=== PATIENT | male | born 1945 | race Caucasian/White ===

== ENCOUNTER → 2022-12-21 08:05 | Outpatient (CLI) | payer MEDICARE, SELFPAY ==
--- NOTE | ~2022-12-21 | MR_ITS ---
MRI of the lumbar spine Clinical History: Radiculopathy Technique: Axial T2-weighted images, and sagittal T1-weighted, T2-weighted, and T2 fat-sat images wer e acquired. COMPARISON: 04/09/2019 Findings: No fracture of the lumbar spine seen. Osseous alignment is stable from prior exam. Stable m inimal grade 1 retrolisthesis of L2 over L3. There are reactive marrow signal changes about the L2-L3 disc spaces due to underlying degenerative disc disease. At L1-L2, there is mild diffuse disc bulge and mild facet joint hypertrophy. No spinal canal stenosis or neural foraminal narrowing. At L2-L3, there is advanced degenerative disc narrowing, with facet joint arthropathy and minimal dis c bulge. There is right lateral recess stenosis. Neural foramina are preserved. At L3-L4, there is advanced degenerative disc narrowing. There is facet arthropathy. There is minimal disc bulge. No angie spinal canal stenosis. There is mild to moderate right neural foraminal narrowi ng. Left neural foramen preserved. At L4-L5, there is mild disc bulge with facet arthropathy. No spinal canal stenosis. There is probabl e minimal right neural foraminal narrowing and mild left neural foraminal narrowing. At L5-S1, there is mild disc bulge and facet arthropathy. No spinal canal stenosis. There is moderate to severe left neural foraminal narrowing and moderate right neural foraminal narrowing. Paravertebral soft tissues are unremarkable. Impression: Mild to moderate degenerative spondylosis, as detailed above, similar to prior exam. Reviewed, dictated and finalized at [facility]. ING AND INSURANCE COORDINATOR Impression: Mild to moderate degenerative spondylosis, as detailed above, similar to prior exam.
== END ==
PROVIDERS: PCP Internal Medicine; Visit Provider Nurse Practitioner
DX: M47.26 Other spondylosis with radiculopathy, lumbar region (principal)
CPT/HCPCS: 72148

== ENCOUNTER 2024-07-27 15:36 | Emergency (ER) | payer MEDICARE, SELFPAY ==
--- NOTE | ~2024-07-27 | CT_ITS ---
CT diagnostic chest wo con Ordering provider: Khushbu Gutierrez MD History: 79 years Male with . POSSIBLE RIB FRACTURES . Comparison: None. Technique: CT chest without IV contrast. Radiation reduction technique utilized. The dose-length product was 504.83 mGy-cm. FINDINGS: VISUALIZED THORACIC INLET: Normal. MEDIASTINUM: Aorta/coronary arteries: Mild atheromatous disease. Heart/other: The heart is not enlarged. Lymph nodes: No mediastinal or hilar adenopathy. LUNGS: No pulmonary nodules or masses. No infiltrates or effusions. No pneumothorax. Dependent atelec tatic changes. Minimal thickness in the left lower lobe area pleura. VISUALIZED UPPER ABDOMEN: Cholelithiasis. Minimal fullness in the left renal pelvis. Otherwise, the v isualized upper abdomen is normal. MUSCULOSKELETAL: Soft tissues: The superficial soft tissues are normal. Bones: Age appropriate degenerative changes of the spine. Fracture of the left sixth and eighth ribs is highly suggestive. IMPRESSION: 1. No acute cardiopulmonary pathology 2. Highly suggestive fracture in the left sixth and eighth ribs. Reviewed, dictated and finalized at location A.
[2024-07-27 15:56] VITALS: BP 133/65; PULSE 70; RESP 16; TEMP 36.6; O2SAT 96
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
[2024-07-27] MEDS: HYDROcodone/acetaminophen (*CRX) 5-325 MG TABLET 1 TAB PO (16:53)
[2024-07-27 18:24] VITALS: BP 133/75; PULSE 73; RESP 18; O2SAT 95
== END 2024-07-27 19:01 | disposition home or self-care (01) ==
PROVIDERS: Emergency Provider Emergency Medicine; PCP Internal Medicine
DX: S22.42XA Multiple fractures of ribs, left side, initial encounter for closed fracture (principal); I10 Essential (primary) hypertension; E78.5 Hyperlipidemia, unspecified; Z85.038 Personal history of other malignant neoplasm of large intestine; Z87.891 Personal history of nicotine dependence; Z79.899 Other long term (current) drug therapy; V18.0XXA Pedal cycle driver injured in noncollision transport accident in nontraffic accident, initial encounter; Y93.55 Activity, bike riding
CPT/HCPCS: 71250; 99284; A9270

== ENCOUNTER 2024-11-28 10:21 | Outpatient (CLI) | payer MEDICARE, SELFPAY ==
--- OUTSIDE RECORDS SUMMARY | 2024-11-28 10:35 | XMS_ITS | Clinical Summary ---
Author Organization [facility] Address [address] [place] [address] Care Team Providers Care Merchant Banker Name Role Phone Unavailable Primary Care Provider Unavailabl e Source Comments [facility],non-owned Affiliates and Associated Physician Practices is amultiple site organization consisting of ambulatory clinics and hospital sitesin [place], [place], [place] and [place]. This disclosure is being madepursuant to the Care Everywhere program and may not contain all information available regarding this patient. Last updated 18.[facility] Allergies No known active allergies Medications Be aware that medications may not be up to date on this document. Always verify current medications with the patient. No known medications Immunizations Name Administration Dates Next Due INFLUENZA VACCINE, HIGH-DOSE , QUADR. (FLUZONE HIGH-DOSE QUADRIVALENT; 65Y+), 0.7 ML (HD-IIV4) 07/30/2020,08/18/2018 Social History Tobacco Use Types Packs/Day Years Used Date Smoking Tobacco: Never Assessed Sex and Gender Information Value Date Recorded Sex Assigned at Not on file Gender Identity Not on file Sexual Orientation Not on file Plan of Treatment Health Maintenance Due Date Last Done Comments MEDICARE AWV ? 12 MONTHS 1945 DTAP/TDAP/TD VACCINES (1 - Tdap) 1964 PNEUMOCOCCAL VACCINE 50+ (1 of 1 - PCV) 1995 ZOSTER VACCINE (1 of 2) 1995 Respiratory Syncytial Virus (RSV) Vaccine Pt: or over 60 yrs (1 - 1-dose 75+ series) 2020 COVID-19 VACCINE (1 - 2023-2 5 season) 2024 INFLUENZA VACCINE (#1) 2024 0, 08/18/2018 DEPRESSION SCREENING 10/29/2024 HEPATITIS B VACCINE Aged Out No longe r eligible based on patient's age to complete this topic HIB VACCINE Aged Out No longer eligi ble based on patient's age to complete this topic HPV VACCINE Aged Out No longer eligi ble based on patient's age to complete this topic MENINGOCOCCAL (Group B) VACCINE Aged Out No longer eligible b ased on patient's age to complete this topic MENINGOCOCCAL VACCINE Aged Out No amanda spike eligible based on patient's age to complete this topic Jono Fischer Personal/Family [place] 1945 [place] [address]
--- OUTSIDE RECORDS SUMMARY | 2024-11-28 10:35 | XMS_ITS | Continuity of Care Document ---
Author Organization [facility] Address [address] [place] [address] Phone Care Team Providers Care High Scaler Name Role Phone Russ OD, Omega Unavailable Unavailable Procedures Procedure Date Eye Exam & Treatment Refraction Eye Exam & Treatment Refraction Advance Directives Directive Yes / No Effective Date File Name No Information Encounters Encounter Description Practice Location Reason(s) For Visit Diagnoses Date Provider Providers Copied on Encounter [facility], [address], [place], [place], [id number], tel:[phone] [facility] No Information 7-200 9 Urss OD [place]. [address] , [address], [place], [address], [place]. tel:[phone] [facility], [address] [place] [address] [address], [place], [place], [address], tel:[phone] [facility] No Information 8-[address] [place]. [address], [address], [place], [place], [address], [place]. tel:[phone] Family History Family Member Type Diagnosis Age At Onset No Information Payers Payer name Insurance type Covered republican ID Authoriza tion(s) No Information Social History Type Description Quantity Date Captured Comments Sex Male Smoking Status No Information Chief Complaint And Reason For Visit No Information Reason For Referral Reason For Referral No Information History Of Present Illness Encounter Date Complaint History Of Prese nt Illness No Information Functional Status Date Functional Assessmen t No Information Instructions Date Instruction Additional Infor mation No Information Assessments Type Assessment Date No Information Patient Care Teams Name Effective Dates (start - stop) Status Members No Information
--- OUTSIDE RECORDS SUMMARY | 2024-11-28 10:35 | XMS_ITS | Encounter Summary ---
Author Organization [facility] Address 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
--- OUTSIDE RECORDS SUMMARY | 2024-11-28 10:35 | XMS_ITS | Encounter Summary ---
Author Organization [facility] Address [address] [place] [address] Phone Care Team Providers Care Isotope Technologist Name Role Phone Darnell Palacios DO Primary Care Provider [phone] Encounter Details Date Type Department Care Team (Late st Contact Info) Description 03/14/2018 Orders Only [facility] ProviderDonnie MD [address] [place] [address] Social History Tobacco Use Types Packs/Day Years Used Date Smoking Tobacco: Former Sex and Gender Information Value Date Recorded Sex Assigned at Not on file Legal Sex Male 12:57 AM WIRE HARNESS DESIGN ENGINEER Gender Identity Not on file Sexual Orientation Not on file documented as of this encounter Plan of Treatment Not on file documented as of this encounter Procedures Procedure Name Priority Date/Time Associated Diagnosis Comments DISCHARGE LABORATORY CUMULATIVE REPORT 03/14/2018 12:00 AM CDT documented in this encounter Results * DISCHARGE LABORATORY CUMULATIVE REPORT (03/14/2018 12:00 AM CDT) Narrative 03/14/2018 12:00 AM CDT Ordered by an unspecified provider. Historical Provider LAB BLOOD ORDERABLES Felipa l Result documented in this encounter Visit Diagnoses Not on filedocumented in this encounter Additional Health Concerns Infection Onset Date Last Indicated Resolved Time COVID: Suspected 11/27/2022 11/27/2022 11/27/2022 3:36 PM WIRE HARNESS DESIGN ENGINEER COVID: Suspected 12/03/2023 12/03/2023 12/03/2023 4:11 PM WIRE HARNESS DESIGN ENGINEER COVID: Suspected 01/12/2024 01/12/2024 01/12/2024 6:16 PM CDT documented as of this encounter Care Teams Isotope Technologist Relationship Specialty Start Date End Date Darnell Palacios DO PCP - General 07/11/17 documented as of this encounter
--- OUTSIDE RECORDS SUMMARY | 2024-11-28 10:35 | XMS_ITS | Encounter Summary ---
Author Organization [facility] Address [address] [place] [address] Care Team Providers Care Welding Machine Operator Thermit Name Role Phone Unavailable Primary Care Provider Unavailabl e Encounter Details Date Type Department Care Team (Late st Contact Info) Description 05/12/2020 Lab Requisition [facility] DermPath Lab [address] [place] [address] Rubia Amaral MD [address] [facility] [address] [place] [address] Social History Tobacco Use Types Packs/Day Years Used Date Smoking Tobacco: Never Assessed Sex and Gender Information Value Date Recorded Sex Assigned at Not on file Gender Identity Not on file Sexual Orientation Not on file documented as of this encounter Plan of Treatment Not on file documented as of this encounter Procedures Procedure Name Priority Date/Time Associated Diagnosis Comments DERMATOPATHOLOGY Routine 05/12/2020 12:0 0 AM CDT documented in this encounter Results * DERMATOPATHOLOGY (05/12/2020 12:00 AM CDT) Case Report Dermatopathology Report ? Case: [id number] ? Authorizing Provider: ??Rubia Amaral MD ?Collected: ? 05/12/2020 12:00 AM ? Ordering Location: ? [facility] DermPath Lab ?Received: ?05/12/2020 12:54 PM ? Pathologist: ? Diya Jaimes MD ? Specimen: ?Skin, left arm ? 0 1:37 PM CDT DERMATOPATHOLOGY LABORATORY Final Diagnosis Specimen A. 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 See prior biopsy [id number] 0 1:37 PM CDT DERMATOPATHOLOGY LABORATORY Gross Description Specimen A: Received is one formalin filled container labeled with the patient's name and designated left arm.The specimen consists of an ellipse measuring 46p68s2 mm and is oriented with the suture/notch at the 12 o'clock position labeled on the requisition as superior. The 12 to 6 o'clock margin is inked green. The 6 o'clock to 12 o'clock margin is inked black. The 12 o'clock tip is submitted in cassette 1. The 6 o'clock tip is submitted in cassette 2. The remainder of the ellipse is serially sectioned and submitted in cassettes 3-4. Jar 0. 0 1:37 PM CDT DERMATOPATHOLOGY LABORATORY Microscopic Description Specimen A. SKIN, left arm: The epidermis shows parakeratosis, full thickness disorderly maturation of keratinocytes, mitoses at different levels, and dyskeratotic cells. This lesion is not present at the margin of the specimen. There are fibroblasts and collagen bundles oriented parallel to the skin surface with elongated blood vessels, some of which are oriented perpendicular to the skin surface. 0 1:37 PM CDT DERMATOPATHOLOGY LABORATORY Disclaimer An external and internal positive and negative controls are appropriate for the histochemical, immunohistochemical and immunofluorescence stain(s) in this case (if any), except where stated explicitly. The performance characteristics of the stain(s) cited in this report were developed and its performance characteristic determined by the Dermatopathology Laboratory at [facility], directed by Dr. Brendan Simms. These tests need not be, and therefore are not, approved by the [place] Food and Drug Administration. The tests are used for clinical purposes. Billing Codes Specimen Charges Stain Charges 11213 1 0 1:37 PM CDT DERMATOPATHOLOGY LABORATORY Embedded Images 0 1:37 PM CDT DERMATOPATHOLOGY LABORATORY Pathology/Cytolog y TISSUE SPECIMEN FROM SKIN / Unknown 05/12/2020 05/12/2020 12:54 PM CDT Rubia Amaral MD LAB - PATHOLOGY/CYTO LOGY ORDERABLES DERMATOPATHOLOGY LABORATORY [facility] - Department of Dermatology Hotel Service Supervisor Hermann/[address] [phone] documented in this encounter Visit Diagnoses Not on filedocumented in this encounter
--- OUTSIDE RECORDS SUMMARY | 2024-11-28 10:35 | XMS_ITS | Encounter Summary ---
Author Organization [facility] Address [address] [place] [address] Care Team Providers Care Program Arranger Name Role Phone Unavailable Primary Care Provider Unavailabl e Encounter Details Date Type Department Care Team (Late st Contact Info) Description 12/14/2023 Lab Requisition [facility] - DermPath Lab [address] [place] [address] Germania Ryan MD [address] [address] [facility] [address] [place] [address] Social History Tobacco Use Types Packs/Day Years Used Date Smoking Tobacco: Never Assessed Sex and Gender Information Value Date Recorded Sex Assigned at Not on file Gender Identity Not on file Sexual Orientation Not on file documented as of this encounter Plan of Treatment Not on file documented as of this encounter Procedures Procedure Name Priority Date/Time Associated Diagnosis Comments DERMATOPATHOLOGY Routine 12/14/2023 8:37 AM SPEECH LANG PATH THERAPIST documented in this encounter Results * DERMATOPATHOLOGY (12/14/2023 8:37 AM SPEECH LANG PATH THERAPIST) Case Report Dermatopathology Report ? Case: [id number] ? Authorizing Provider: ??Germania Ryan MD ? Collected: ? 12/14/2023 08:37 AM ? Ordering Location: ? [facility] DermPath Lab ? Received: ?12/17/2023 11:46 AM ? Pathologist: ? Radha Simms MD ? Specimens: ?? A) - Skin, right lat cheek ? B) - Skin, left lower burks ? 4 3:50 PM [facility] DERMATOPATHOLOGY LABORATORY Final Diagnosis Specimen A. SKIN, right lat cheek: BENIGN VERRUCOUS KERATOSIS (L82.1) Specimen B. SKIN, left lower burks: SEBORRHEIC KERATOSIS, IRRITATED (L82.0) 4 3:50 PM [facility] DERMATOPATHOLOGY LABORATORY Clinical History A-B: NMSC Irritated 4 3:50 PM [facility] DERMATOPATHOLOGY LABORATORY Gross Description Specimen A: Received is one formalin filled container labeled with the patient's name and designated right lat cheek. The specimen consists of a shave biopsy measuring 4x3x1 mm. Jar 0. Specimen B: Received is one formalin filled container labeled with the patient's name and designated left lower burks. The specimen consists of a shave biopsy measuring 8x5x1 mm. Jar 0. 4 3:50 PM [facility] DERMATOPATHOLOGY LABORATORY Microscopic Description Specimen A. SKIN, right lat cheek: Sections show hyperkeratosis, papillomatosis, hypergranulosis, and acanthosis. These histological findings can be seen in a verruca vulgaris or a seborrheic keratosis. Specimen B. SKIN, left lower burks: There is acanthosis consisting of fairly uniform squamous cells with eosinophilic cytoplasm and squamous eddies. 4 3:50 PM [facility] DERMATOPATHOLOGY LABORATORY Disclaimer An external and internal positive and negative controls are appropriate for the histochemical, immunohistochemical and immunofluorescence stain(s) in this case (if any), except where stated explicitly. The performance characteristics of the stain(s) cited in this report were developed and its performance characteristic determined by the Dermatopathology Laboratory at [facility], directed by Dr. Brendan Simms. These tests need not be, and therefore are not, approved by the [place] Food and Drug Administration. The tests are used for clinical purposes. Billing Codes Specimen Charges Stain Charges 76490 10999 1 1 4 3:50 PM [facility] DERMATOPATHOLOGY LABORATORY Embedded Images 4 3:50 PM [facility] DERMATOPATHOLOGY LABORATORY Pathology/Cytology TISSUE SPECIMEN FROM SKIN / Unknown 12/14/2023 8:37 AM SPEECH LANG PATH THERAPIST 12/17/2023 11:46 AM SPEECH LANG PATH THERAPIST Miscellaneous samples (specimen) TISSUE SPECIMEN FROM SKIN / Unknown 12/14/2023 8:37 AM SPEECH LANG PATH THERAPIST 12/17/2023 11:46 AM SPEECH LANG PATH THERAPIST Germania Ryan MD LAB - PATHOLOGY/CYT OLOGY ORDERABLES DERMATOPATHOLOGY LABORATORY [facility] - Department of Dermatology [address], [address] [phone] documented in this encounter Visit Diagnoses Not on filedocumented in this encounter
--- OUTSIDE RECORDS SUMMARY | 2024-11-28 10:35 | XMS_ITS | Encounter Summary ---
Author Organization [facility] Address [address] [place] [address] Care Team Providers Care Loan Processing Supervisor Name Role Phone Unavailable Primary Care Provider Unavailabl e Encounter Details Date Type Department Care Team (Late st Contact Info) Description 12/17/2023 Lab Requisition [facility] - DermPath Lab [address] [place] [address] Loida Roque, [address] [facility] [address] [place] [address] Social History Tobacco Use Types Packs/Day Years [...]
--- OUTSIDE RECORDS SUMMARY | 2024-11-28 10:35 | XMS_ITS | Referral Summary ---
Author Organization [facility] Address [address] [place] [address] Care Team Providers Care Gas Pumping Station Operator Name Role Phone Darnell Palacios DO Primary Care Provider [phone] Encounters Date Type Department Care Team Description 11/16/2024 9:00 AM MATERNITY NURSE Office Visit [facility] at [address] [address] Therese Cerna NP Lower respiratory infection (e.g., bronchitis, pneumonia, pneumonitis, pulmonitis) (Primary Dx) 10/06/2024 1:15 PM MATERNITY NURSE Office Visit [facility] Neurosurgery [facility] Medical Office Building [address] [place] [address] Marbella Hubbard NP Low back pain, non-specific from Last 3 Months Allergies No known active allergies Medications tamsulosin (FLOMAX) 0.4 mg extended release capsule TK 1 C PO Q DAY 3 8 Active sildenafil (VIAGRA) 100 mg tablet TK 1 T PO 1 HOUR B SEXUAL ACTIVITY PRN 3 8 Active cholecalciferol (VITAMIN D-3) 2000 unit capsule TAKE 2,000IU ONCER PER DAY/ PT TAKING 5000IU 5 Active omeprazole OTC (PriLOSEC OTC) 20 mg EC tablet daily 7 Active loratadine (CLARITIN) 10 mg tablet Take 1 tablet (10 mg total) by mouth daily Active triamcinolone (KENALOG) 0.1 % cream APPLY TO ARMS/LEGS BID PRN 6 9 Active nutritional supplement-fiber liquid Active hydroCHLOROthiaz dhaval (MICROZIDE) 12.5 mg capsule Take 1 capsule (12.5 mg total) by mouth daily 90 capsule 3 4 Active pravastatin (PRAVACHOL) 40 mg tablet TAKE 1 TABLET(40 MG) BY MOUTH DAILY 90 tablet 1 4 Active lisinopriL (PRINIVIL,ZESTRI L) 5 mg tablet TAKE 1 TABLET(5 MG) BY MOUTH DAILY 90 tablet 4 Active benzonatate (TESSALON) 200 mg capsuleIndicatio ns:Lower respiratory infection (e.g., bronchitis, pneumonia, pneumonitis, pulmonitis) Take 1 capsule (200 mg total) by mouth 3 (three) times a day as needed for cough 30 capsule 5 Active azithromycin (ZITHROMAX) 250 mg tabletIndication s:Lower respiratory infection (e.g., bronchitis, pneumonia, pneumonitis, pulmonitis) Take 2 tablets the first day, then 1 tablet daily for 4 days. 6 tablet 5 Active Active Problems Problem Noted Date Diagnosed Date Spondylosis of lumbar region without myelopathy or radiculopathy 05/26/2024 Sleep apnea 12/31/2020 Overview (12/31/2020): Compliant with CPAP Assessment & Plan (12/31/2020 9:37 AM MATERNITY NURSE): The patient does have history of sleep apnea and he is compliant with the CPAP Encounter for colonoscopy due to history of colo adali polyp 08/26/2019 Overview (08/26/2019): Added automatically from request for surgery [id number] Encounter for colonoscopy du e to history of adenomatous colonic polyps 05/28/2018 Overview (05/28/2018): Added automatically from request for surgery [id number] Rectal mass 06/06/2017 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 Euvolemic upon examination. Continue HCTZ. Continue adequate blood pressure control. BMP today. Assessment & Plan (12/30/2021 8:35 AM MATERNITY NURSE): He has stable class 1 symptoms. Encouraged him to let us know if he notices a significant change in his activity tolerance. Blood pressure well controlled. Assessment & Plan (12/31/2020 9:37 AM MATERNITY NURSE): He is currently euvolemic on examination. He does not have any symptoms of heart failure. His blood pressure at home is well controlled. We asked him to continue appropriate blood pressure monitoring and remain compliant with his CPAP machine Assessment & Plan (01/02/2020 11:31 AM MATERNITY NURSE): He appears euvolemic on examination. He does not report any symptoms of heart failure. Assessment & Plan (01/17/2019 12:26 PM CDT): He is currently euvolemic without any signs of volume overload. We will continue to monitor and clinically at this time. Dyspnea 11/07/2013 Overview (01/14/2019): The patient underwent treadmill exercise, stress echo in 2013. He exercised for 9 minutes and imaging was negative for ischemia Assessment & Plan (12/31/2020 9:39 AM MATERNITY NURSE): The patient is fairly active and denies significant dyspnea at this time. We will obtain a CBC to ensure that he has no significant anemia given his recent Mohs procedure and excessive bleeding. We will also ensure that he does not have thrombocytopenia that could have potentially mediated this. In the interim, will ask him to continue to remain active and we will optimize his blood pressure control. Assessment & Plan (01/02/2020 11:30 AM MATERNITY NURSE): His dyspnea has not been problematic since his last visit. He has had some orthopedic issues which did limited exercise which have been satisfactory treated. He will try to increase his activity again. Assessment & Plan (01/17/2019 11:46 AM CDT): He underwent a treadmill exercise stress echocardiogram 2013 which was negative for ischemia. He continues to be fairly active and exercises 10 times a month. He does not have any dyspnea with day-to-day activities. We will continue to monitor him at this time. Essential hypertension 11/07/2013 Assessment & Plan (08/14/2024 9:12 AM CDT): Stable. Continue current regimen with hydrochlorothiazide 12.5 mg daily and lisinopril 5 mg daily. BMP today. Assessment & Plan (12/30/2021 8:35 AM MATERNITY NURSE): His blood pressure is controlled. Continue current regimen without change. Encouraged continued exercise as he is currently doing. Assessment & Plan (12/31/2020 9:39 AM MATERNITY NURSE): His blood pressure is currently well controlled at home. His blood pressure is mildly elevated today. We asked him to continue to monitor at this time. In the interim, will continue amlodipine, lisinopril, hydrochlorothiazide. We will obtain a CMP to ensure that his renal function electrolytes are well controlled. Assessment & Plan (01/02/2020 11:30 AM MATERNITY NURSE): Reports good blood pressure control at home. I will continue his current regimen. Assessment & Plan (01/17/2019 12:26 PM CDT): His blood pressure is currently very well controlled. We will continue HCTZ 12.5 mg daily, lisinopril 5 mg daily, add amlodipine 5 mg daily. We will obtain a comprehensive metabolic panel today to ensure that his electrolytes and renal function are stable. Other hyperlipidemia 11/07/2013 Assessment & Plan (08/14/2024 9:34 AM CDT): Continue pravastatin. FLP today. Assessment & Plan (12/30/2021 8:35 AM MATERNITY NURSE): Lipids checked 1 year ago at goal. Recheck today. Assessment & Plan (12/31/2020 9:38 AM MATERNITY NURSE): Will continue pravastatin 40 mg daily at this time. We will obtain a lipid panel to ensure that his lipids are well controlled. Assessment & Plan (01/02/2020 11:34 AM MATERNITY NURSE): He has had adequate control of his cholesterol on pravastatin. I will check a metabolic panel today for routine monitoring. Assessment & Plan (01/17/2019 12:27 PM CDT): We will continue pravastatin 40 mg daily and obtain lipid panel today to ensure that his lipids are well controlled. Obesity 11/07/2013 Current smoker 01/23/2011 Malignant neoplasm of cecum (CMS/HCC) 01/23/2007 Immunizations Name Administration Dates Next Due Influenza, Quadrivalent, Hig h Dose, Preservative Free, Intrr 08/13/2021,07/30/2020 Influenza, Quadrivalent, Spl it, Preservative Free, Intramuscular 10/21/2013 Influenza, Trivalent, High D ose, Split, Preservative Free, Intramuscular 08/10/2019,08/18/2018,07/14/2017,08/19,08/14/2015,08/06/2014 Pneumococcal Conjugate PCV 13 08/24/2019 Pneumococcal Polysaccharide PPV23 10/19/2009 TD Preservative Free 08/24/2019 Td, adsorbed 08/24/2019 ZOSTER LIVE 10/19/2009 ZOSTER Recombinant 08/11/2020,06/12/2020 Social History Tobacco Use Types Packs/Day Years Used Date Smoking Tobacco: Former Cigarettes 0.1 11 1 12/02/1985 - 10/01/1997 Pipe Cigars Smokeless Tobacco: Never Tobacco Cessation:Counseling Given: Not Answered Comments:cigar 1x/week Alcohol Use Standard Drinks/Week Comments No 0 (1 standard drink = 0.6 oz pur e alcohol) history of ETOH Abuse AUDIT-C Answer Date Recorded Q1: How often do you have a drink containing alcohol? Never 04/16/2024 Q2: How many drinks containi ng alcohol do you have on a typical day when you are drinking? Patient does not drink Q3: How often do you have si x or more drinks on one occasion? 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 Not on file Not on file Not on file Last Filed Vital Signs Vital Sign Reading Time Taken Comments Blood Pressure 158/66 11/16/2024 8:51 AM MATERNITY NURSE Pulse 65 11/16/2024 8:51 AM MATERNITY NURSE Temperature 36.5 ??C (97.7 ??F) 11/16/2024 8:51 AM CS T Respiratory Rate 22 11/16/2024 8:51 AM MATERNITY NURSE Oxygen Saturation 96% 11/16/2024 8:51 AM MATERNITY NURSE Inhaled Oxygen Concentration - - Weight 107 kg (236 lb) 11/16/2024 8:51 AM MATERNITY NURSE Height 190.5 cm (6' 3 ) 10/06/2024 12:58 PM MATERNITY NURSE Body Mass Index 29.5 10/06/2024 12:58 PM MATERNITY NURSE Plan of Treatment Not on file Goals Goal Patient Goal Type Associated Problems Recent Progress Patient-Stated? Author CCM Chronic Pain Care Plan Chronic Care Management Viktoria Welch, RN Note: Problem: Chronic Pain Goals: 1. Minimize further functional decline 2. Maximize quality of life 3. Control pain Strategies: - Activity/exercise program recommendation - Conservative stepwise pain medicine strategy with multi-disciplinary approach - Recommend healthy lifestyle strategies and compensatory methods as needed Reduce the likelihood of falling Lifestyle Viktoria Welch, RN Note: Below are four things you can do to prevent falls: Begin an exercise program to improve your leg strength & balance Ask your doctor or pharmacist to review your medicines Get annual eye check-ups & update your eyeglasses Make your home safer by: Removing clutter & tripping hazards Putting railings on all stairs & adding grab bars in the bathroom Having good lighting, especially on stairs Contact your local community or senior center for information on exercise, fall prevention programs, or options for improving home safety. Procedures Procedure Name Priority Date/Time Associated Diagnosis Comments COLONOSCOPY 10/01/2019 1:[address] CHEST ABDOMEN PELVIS W CONTRAST Schedule Routine, Read Routine (OP Routine) 03/17/2019 8:37 AM CDT Malignant neoplasm of cecum (CMS/HCC) from Last 3 Months or Most Recently Relevant to Health Maintenance Results * COLONOSCOPY (10/01/2019 1:29 PM MATERNITY NURSE) Anatomical Region Laterality Modality Other Narrative Procedure Note Homero Rider MD - 10/01/2019 1:29 PM CST [facility] Patient Name: Giacomo Donis Procedure Date: 10/01/2019 1:29 PM Date of : 1945 Admit Type: Outpatient Age: 74 Gender: Male Attending MD: Homero Rider M.D. Room: [facility] ENDOSCOPY ROOM 9 Note Status: Finalized Procedure: Colonoscopy Indications: Surveillance: Piecemeal removal of large sessile adenoma last colonoscopy (< 3 yrs), High risk colon cancer surveillance: Personal history of coloncancer Referring MD: Galo Hare M.D., Darnell Palacios DO Providers: Homero Rider M.D. Medicines: Monitored Anesthesia Care Complications: No immediate complications. Estimated Blood Loss: Estimated blood loss: none. Estimated blood loss:none. Procedure: Pre-Anesthesia Assessment: - Immediately prior to administration ofmedications, the patient was re-assessed for adequacy to receive sedatives. - The risks and benefits of the procedure and the sedation options and risks were discussed with the patient. All questions were answered and informed consent was obtained. The benefits, risks and alternatives of theprocedure and sedation were discussed and informed consent was obtained. All questions were answered. Please referto the signed informed consent document in the medical record. The scope was passed under direct vision.The [id number] endoscope was introduced throughthe anus and advanced to the ileocolonic anastomosis.The colonoscopy was performed without difficulty. The patient tolerated the procedure well. The quality of the bowel preparation was good. The quality of the bowel preparation was evaluated using the BBPS(Peak Bowel Preparation Scale) with scores of: Right Colon= 2, Transverse Colon = 3 and Left Colon = 2. Thetotal BBPS score equals 7. The bowel preparation used was MoviPrep. Bowel prep was administered using a split dose. Findings: The perianal and digital rectal examinations were normal. There was evidence of a prior end-to-side ileo-colonic anastomosis in the ascending colon. This was non-patent and was characterized by healthy appearing mucosa. A 6 mm polyp was found in the distal ascending colon. The polyp was semi-sessile. The polyp was removed with a cold snare. Resection was complete, but the polyp tissue was not retrieved as it fragmentedwith suction. A medium post mucosectomy scar was found in the rectum. The scartissue was healthy in appearance. There was no evidence of the previouspolyp. Biopsies were taken with a cold forceps for histology. Multiple small and large-mouthed diverticula were found in thesigmoid colon. The exam was otherwise without abnormality. Impression: - Non-patent end-to-side ileo-colonic anastomosis, characterized by healthy appearing mucosa. - One 6 mm polyp in the distal ascending colon,removed with a cold snare. Complete resection. Polyp tissuenot retrieved as it fragmented with suction. - Post mucosectomy scar in the rectum. Recommendation: - Repeat colonoscopy in 3 years for surveillance.This can be with Dr. Hare. - Call my nurses in the GI office at [phone] ([phone]) for your final pathology results in 7 days. - Return to primary care physician as previously scheduled. Attending Participation: I personally performed the entire procedure. Electronically signed by Homero Rider MD Homero Rider M.D. 10/01/2019 2:00:50 PM . Number of Addenda: 0 Note Initiated On: 10/01/2019 1:29 PM Recognized by the [employer] for promoting quality in endoscopy us Homero Rider MD ENDOSCOPY PROCEDUR ES Final Result * CT Chest Abdomen Pelvis W Contrast (03/17/2019 8:37 AM CDT) Anatomical Region Laterality Modality Body N/A Computed Tomogra phy 03/17/2019 8:49 AM CDT Impressions 03/17/2019 8:55 AM CDT [address]. [address] CT evidence of recurrent or metastatic disease in the chest, abdomen, or pelvis. Dictated by: Demarco Branch M.D. The radiology attending physician has personally reviewed this study, and had reviewed and/or edited this written report and agrees with it. Electronically signed by: Juan Albrecht M.D. 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 TECHNIQUE: Transaxial computed tomographic images of the chest, abdomen, and pelvis were obtained after the uneventful administration of 100 mL Optiray 350 according to standard protocol. COMPARISON: CT of the chest, abdomen, and pelvis dated 03/17/2018. FINDINGS: Heart is normal in size. ??Thinning of the left ventricular septum and apex likely represents sequela prior infarction. ??There is moderate atherosclerosis of the coronary arteries and a stent in the left anterior descending artery. ??Trace pericardial fluid in the superior pericardial recesses. ??No mediastinal, axillary, or supraclavicular lymphadenopathy. Unchanged 3 mm pulmonary nodule in the left upper lobe on table position 141, unchanged 4 mm pulmonary nodule in the left lower lobe on table position 39, and unchanged 4 mm pulmonary nodule in the lingula on table position -113. ??No new or enlarging pulmonary nodule. ??There is minimal atelectasis or scarring in the left lower lobe. ??No focal consolidation, pulmonary edema, pleural effusion, or pneumothorax. Stable postsurgical changes of partial left hepatectomy, and unchanged posttreatment changes within hepatic segment 6. ??Focal fat is seen adjacent to gallbladder fossa, slightly more pronounced compared to the prior study. ??No suspicious hepatic lesion. ??Portal vein is her mesenteric vein are patent. ??Spleen is upper limits of normal for size. ??The greatest is normal. ??Tiny stones within a normal-appearing gallbladder. ??No intrahepatic or extra hepatic biliary duct dilation. ??Right kidney is normal. ??Unchanged peripelvic cysts involving the left kidney. ??No hydronephrosis. No distended or normally thickened loops of small or large bowel. Postsurgical changes of right colectomy with ileotransverse anastomosis. ??Scattered colonic diverticulosis. ??No intra-abdominal or intrapelvic lymphadenopathy. Aorta is normal in course and caliber, with moderate atherosclerotic disease. ??Urinary bladder is normal. ??Prostate is moderately enlarged. ??Tiny fat-containing left inguinal hernia. Bone windows demonstrate no osseous lesions. 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 TECHNIQUE: Transaxial computed tomographic images of the chest, abdomen, and pelvis were obtained after the uneventful administration of 100 mL Optiray 350 according to standard protocol. COMPARISON: CT of the chest, abdomen, and pelvis dated 03/17/2018. FINDINGS: Heart is normal in size. Thinning of the left ventricular septum and apex likely represents sequela prior infarction. There is moderate atherosclerosis of the coronary arteries and a stent in the left anterior descending artery. Trace pericardial fluid in the superior pericardial recesses. No mediastinal, axillary, or supraclavicular lymphadenopathy. Unchanged 3 mm pulmonary nodule in the left upper lobe on table position 141, unchanged 4 mm pulmonary nodule in the left lower lobe on table position 39, and unchanged 4 mm pulmonary nodule in the lingula on table position -113. No new or enlarging pulmonary nodule. There is minimal atelectasis or scarring in the left lower lobe. No focal consolidation, pulmonary edema, pleural effusion, or pneumothorax. Stable postsurgical changes of partial left hepatectomy, and unchanged posttreatment changes within hepatic segment 6. Focal fat is seen adjacent to gallbladder fossa, slightly more pronounced compared to the prior study. No suspicious hepatic lesion. Portal vein is her mesenteric vein are patent. Spleen is upper limits of normal for size. The greatest is normal. Tiny stones within a normal-appearing gallbladder. No intrahepatic or extra hepatic biliary duct dilation. Right kidney is normal. Unchanged peripelvic cysts involving the left kidney. No hydronephrosis. No distended or normally thickened loops of small or large bowel. Postsurgical changes of right colectomy with ileotransverse anastomosis. Scattered colonic diverticulosis. No intra-abdominal or intrapelvic lymphadenopathy. Aorta is normal in course and caliber, with moderate atherosclerotic disease. Urinary bladder is normal. Prostate is moderately enlarged. Tiny fat-containing left inguinal hernia. Bone windows demonstrate no osseous lesions. IMPRESSION: 1. No CT evidence of recurrent or metastatic disease in the chest, abdomen, or pelvis. Dictated by: Demarco Branch M.D. The radiology attending physician has personally reviewed this study, and had reviewed and/or edited this written report and agrees with it. Electronically signed by: Juan Albrecht M.D. Marc Estrella MD [facility] [place] PROCEDURES Final Resul t from Last 3 Months or Most Recently Relevant to Health Maintenance Insurance MEDICARE [facility] MEDICARE SUPPLEMENT MEDICARE [facility] MEDICARE [facility] MEDICARE SOLUTIONS Advance Directives For more information, please contact: [phone] * Full Code (Latest Code Status on File) Date Activated Date Inactivated Comments 10/01/2019 1:30 PM 10/01/2019 6:52 PM * Full Code Date Activated Date Inactivated Comments 07/19/2018 6:34 AM 07/19/2018 10:04 AM Care Teams Gas Pumping Station Operator Relationship Specialty Start Date End Date Darnell Palacios DO PCP - General 07/11/17
--- OUTSIDE RECORDS SUMMARY | 2024-11-28 10:35 | XMS_ITS | Encounter Summary ---
Author Organization [facility] Address [address] [place] [address] Care Team Providers Care Supervisor Paint Name Role Phone Unavailable Primary Care Provider Unavailabl e Encounter Details Date Type Department Care Team (Late st Contact Info) Description 04/22/2020 Lab Requisition [facility] Care D[facility] [address] [place] [address] Rubia Amaral MD [address] [facility] [address] [place] [address] Social History Tobacco Use Types Packs/Day Years Used Date Smoking Tobacco: Never Assessed Sex and Gender Information Value Date Recorded Sex Assigned at Not on file Gender Identity Not on file Sexual Orientation Not on file documented as of this encounter Plan of Treatment Not on file documented as of this encounter Procedures Procedure Name Priority Date/Time Associated Diagnosis Comments DERMATOPATHOLOGY Routine 04/22/2020 12:0 0 AM CDT documented in this encounter Results * DERMATOPATHOLOGY (04/22/2020 12:00 AM CDT) Case Report Dermatopathology Report ? Case: [id number] ? Authorizing Provider: ??Rubia Amaral MD ?Collected: ? 04/22/2020 12:00 AM ? Ordering Location: ? [facility] Derm[facility] Lab ?Received: ?04/22/2020 11:38 AM ? Pathologist: ? Radha Simms MD ? Specimen: ?Skin, left arm ? 0 1:22 PM CDT DERMATOPATHOLOGY LABORATORY Final Diagnosis Specimen A. 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 The specimen consists of a shave biopsy measuring 6x4x1 mm. Jar 0. 0 1:22 PM CDT DERMATOPATHOLOGY LABORATORY Microscopic Description Specimen A. SKIN, left arm: Sections show nests of cells with pale cytoplasm and thin strands of relatively normal keratinocytes intervening. There is overlying parakeratosis. 0 1:22 PM T DERMATOPATHOLOGY LABORATORY Disclaimer An external and internal positive and negative controls are appropriate for the histochemical, immunohistochemical and immunofluorescence stain(s) in this case (if any), except where stated explicitly. The performance characteristics of the stain(s) cited in this report were developed and its performance characteristic determined by the Dermatopathology Laboratory at [facility], directed by Dr. Brendan Simms. These tests need not be, and therefore are not, approved by the [place] Food and Drug Administration. The tests are used for clinical purposes. Billing Codes Specimen Charges Stain Charges 25733 1 0 1:22 PM CDT DERMATOPATHOLOGY LABORATORY Embedded Images 0 1:22 PM CDT DERMATOPATHOLOGY LABORATORY Pathology/Cytolog y TISSUE SPECIMEN FROM SKIN / Unknown 04/22/2020 04/22/2020 11:38 AM CDT Rubia Amaral MD LAB - PATHOLOGY/CYTO LOGY ORDERABLES DERMATOPATHOLOGY LABORATORY [facility] - Department of Dermatology [employer]/[address] [phone] documented in this encounter Visit Diagnoses Not on filedocumented in this encounter
--- OUTSIDE RECORDS SUMMARY | 2024-11-28 10:35 | XMS_ITS ---
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/26/2024 Sleep apnea 12/31/2020 Overview (12/31/2020): Compliant with CPAP Assessment & Plan (12/31/2020 9:37 AM MINE CAR REPAIRER): The patient does have history of sleep apnea and he is compliant with the CPAP Encounter for colonoscopy due to history of colo adali polyp 08/26/2019 Overview (08/26/2019): Added automatically from request for surgery [id number] Encounter for colonoscopy du e to history of adenomatous colonic polyps 05/28/2018 Overview (05/28/2018): Added automatically from request for surgery [id number] Rectal mass 06/06/2017 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 Euvolemic upon examination. Continue HCTZ. Continue adequate blood pressure control. BMP today. Assessment & Plan (12/30/2021 8:35 AM MINE CAR REPAIRER): He has stable class 1 symptoms. Encouraged him to let us know if he notices a significant change in his activity tolerance. Blood pressure well controlled. Assessment & Plan (12/31/2020 9:37 AM MINE CAR REPAIRER): He is currently euvolemic on examination. He does not have any symptoms of heart failure. His blood pressure at home is well controlled. We asked him to continue appropriate blood pressure monitoring and remain compliant with his CPAP machine Assessment & Plan (01/02/2020 11:31 AM MINE CAR REPAIRER): He appears euvolemic on examination. He does [...] ischemia Assessment & Plan (12/31/2020 9:39 AM MINE CAR REPAIRER): The patient is fairly active and denies [...] control. Assessment & Plan (01/02/2020 11:30 AM MINE CAR REPAIRER): His dyspnea has not been problematic since [...] today. Assessment & Plan (12/30/2021 8:35 AM MINE CAR REPAIRER): His blood pressure is controlled. Continue current regimen without change. Encouraged continued exercise as he is currently doing. Assessment & Plan (12/31/2020 9:39 AM MINE CAR REPAIRER): His blood pressure is currently well controlled at home. His blood pressure is mildly elevated today. We asked him to continue to monitor at this time. In the interim, will continue amlodipine, lisinopril, hydrochlorothiazide. We will obtain a CMP to ensure that his renal function electrolytes are well controlled. Assessment & Plan (01/02/2020 11:30 AM MINE CAR REPAIRER): Reports good blood pressure control at home. [...] today. Assessment & Plan (12/30/2021 8:35 AM MINE CAR REPAIRER): Lipids checked 1 year ago at goal. Recheck today. Assessment & Plan (12/31/2020 9:38 AM MINE CAR REPAIRER): Will continue pravastatin 40 mg daily at this time. We will obtain a lipid panel to ensure that his lipids are well controlled. Assessment & Plan (01/02/2020 11:34 AM MINE CAR REPAIRER): He has had adequate control of his cholesterol on pravastatin. I will check a metabolic panel today for routine monitoring. Assessment & Plan (01/17/2019 12:27 PM CDT): We will continue pravastatin 40 mg daily and obtain lipid panel today to ensure that his lipids are well controlled. Obesity 11/07/2013 Current smoker 01/23/2011 Malignant neoplasm of cecum (CMS/HCC) 01/23/2007 Current Oncology Plans No current plan information found. Past Plans No past plan information found. Radiation Treatments * No radiation treatments are documented for this patient in [facility]. Treatments may have been administered in another system. Lifetime Dose Tracking * Chemical Lifetime Dose Automatic Entry Manual Entr y Fluoro Time 1.128 minutes 1.128 minutes 0 minutes Air kerma at the reference point (Ka,r) 12.71 mGy 1 2.71 mGy 0 mGy DLP 1,091 mGycm 1,091 mGycm 0 mGycm
--- OUTSIDE RECORDS SUMMARY | 2024-11-28 10:35 | XMS_ITS | Encounter Summary ---
Author Organization [facility] Address [address] [place] [address] Care Team Providers Care Electrotyper Name Role Phone Unavailable Primary Care Provider Unavailabl e Encounter Details Date Type Department Care Team (Late st Contact Info) Description 11/17/2020 Lab Requisition [facility] Care D[facility] Lab [address] [place] [address] Rubia Amaral MD [address] [place] [address] Social History Tobacco Use Types Packs/Day Years Used Date Smoking Tobacco: Never Assessed Sex and Gender Information Value Date Recorded Sex Assigned at Not on file Gender Identity Not on file Sexual Orientation Not on file documented as of this encounter Plan of Treatment Not on file documented as of this encounter Procedures Procedure Name Priority Date/Time Associated Diagnosis Comments DERMATOPATHOLOGY Routine 11/17/2020 12:0 0 AM STOCK LAYER documented in this encounter Results * DERMATOPATHOLOGY (11/17/2020 12:00 AM STOCK LAYER) Case Report Dermatopathology Report ? Case: [id number] ? Authorizing Provider: ??Rubia Amaral MD ?Collected: ? 11/17/2020 12:00 AM ? Ordering Location: ? [facility] DermPath Lab ?Received: ?11/17/2020 02:01 PM ? Pathologist: ? Diya Jaimes MD ? Specimen: ?Skin, right ala ? 12:09 PM [facility] DERMATOPATHOLOGY [facility]ORATORY Final Diagnosis Specimen A. SKIN, right ala: BASAL CELL CARCINOMA, NODULAR TYPE (C44.311) 12:09 PM [facility] DERMATOPATHOLOGY [facility]ORAT[facility] Clinical History R/O BCC. 12:09 PM [facility] DERMATOPATH[facility] Gross Description Specimen A: Received is one formalin filled container labeled with the patient's name and designated right ala. The specimen consists of a shave biopsy measuring [id number]. Jar 0. 12:09 PM [facility] DERMATOPATHOLOGY [facility] Microscopic Description Specimen A. SKIN, right ala: Within the dermis there are aggregates of basaloid cells with a high nuclear to cytoplasmic ratio and peripheral palisading. 12:09 PM [facility] DERMATOPATHOLOGY LABORATORY Disclaimer An external and internal positive and negative controls are appropriate for the histochemical, immunohistochemical and immunofluorescence stain(s) in this case (if any), except where stated explicitly. The performance characteristics of the stain(s) cited in this report were developed and its performance characteristic determined by the Dermatopathology Laboratory at [facility], directed by Dr. Brendan Simms. These tests need not be, and therefore are not, approved by the [place] Food and Drug Administration. The tests are used for clinical purposes. Billing Codes Specimen Charges Stain Charges 69631 1 1 12:09 PM [facility] Embedded Images 1 12:09 PM [facility] Pathology/Cytolog y TISSUE SPECIMEN FROM SKIN / Unknown 11/17/2020 11/17/2020 2:01 PM [facility] Rubia Amaral MD LAB - PATHOLOGY/CYTO LOGY ORDERABLES DERMATOPATHOLOGY LABORATORY [facility] - Department of Dermatology [facility] Medicine [address] [place] [address], [address] [phone] documented in this encounter Visit Diagnoses Not on filedocumented in this encounter
--- OUTSIDE RECORDS SUMMARY | 2024-11-28 10:35 | XMS_ITS | Clinical Summary ---
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
--- OUTSIDE RECORDS SUMMARY | 2024-11-28 10:35 | XMS_ITS | Referral Summary ---
Author Organization [facility] Address [address] [place] [address] Care Team Providers Care Director Of Rotc Name Role Phone Unavailable Primary Care Provider Unavailabl e Source Comments [facility],non-owned Affiliates and Associated Physician Practices is amultiple site organization consisting of ambulatory clinics and hospital sitesin [place], [place], [place] and [place]. This disclosure is being madepursuant to the Care Everywhere program and may not contain all information available regarding this patient. Last updated 18.[facility] Allergies No known active allergies Medications Be [...] Orientation Not on file Plan of Treatment Not on file
--- OUTSIDE RECORDS SUMMARY | 2024-11-28 10:35 | XMS_ITS | Patient Health Summary ---
Author Organization [facility] [employer] Address [address] [place] [address] Care Team Providers Care Train Brakeman Name Role Phone Unavailable Primary Care Provider Unavailabl e Note from [facility],non-owned Affiliates and Associated Physician Practices is amultiple site organization consisting of ambulatory clinics and hospital sitesin [place], [place], [place] and [place]. This disclosure is being madepursuant to the Care Everywhere program and may not contain all information available regarding this patient. Last updated 18.[facility] [employer] Allergies No known active allergies Medications Be aware that medications may not be up to date on this document. Always verify current medications with the patient. No known medications Immunizations * INFLUENZA VACCINE, HIGH-DOSE, QUADR. (FLUZONE HIGH-DOSE QUADRIVALENT; 65Y+), 0.7 ML (HD-IIV4)(Given 07/30/2020, 08/18/2018) Social History Tobacco Use Types Packs/Day Years Used Date Smoking Tobacco: Never Assessed Sex and Gender Information Value Date Recorded Sex Assigned at Not on file Gender Identity Not on file Sexual Orientation Not on file Procedures * DERMATOPATHOLOGY(Performed 12/14/2023) * DERMATOPATHOLOGY(Performed 11/17/2020) * DERMATOPATHOLOGY(Performed 05/12/2020) * DERMATOPATHOLOGY(Performed 04/22/2020) Results * DERMATOPATHOLOGY (12/14/2023 8:37 AM FAMILY AND CONSUMER SCIENCE PROFESSOR) Only the most recent of4 resultswithin the time period is included. Case Report Dermatopathology Report ? Case: [id number] ? Authorizing Provider: ??Germania Ryan MD ? Collected: ? 12/14/2023 08:37 AM ? Ordering Location: ? [facility] ? Received: ?12/17/2023 11:46 AM ? Pathologist: ? Radha Simms MD ? Specimens: ?? A) - Skin, right lat cheek ? B) - Skin, left lower burks ? 4 3:50 PM FAMILY AND CONSUMER SCIENCE PROFESSOR DERMATOPATHOLOGY LABORATORY Final Diagnosis Specimen A. SKIN, right lat cheek: BENIGN VERRUCOUS KERATOSIS (L82.1) Specimen B. SKIN, left lower burks: SEBORRHEIC KERATOSIS, IRRITATED (L82.0) 4 3:50 PM FAMILY AND CONSUMER SCIENCE PROFESSOR DERMATOPATHOLOGY LABORATORY Clinical History A-B: NMSC Irritated 4 3:50 PM [facility] DERMATOPATHOLOGY LABORATORY Gross Description Specimen A: Received [...] 8x5x1 mm. Jar 0. 4 3:50 PM FAMILY AND CONSUMER SCIENCE PROFESSOR DERMATOPATHOLOGY LABORATORY Microscopic Description Specimen A. SKIN, right lat cheek: Sections show hyperkeratosis, papillomatosis, hypergranulosis, and acanthosis. These histological findings can be seen in a verruca vulgaris or a seborrheic keratosis. Specimen B. SKIN, left lower burks: There is acanthosis consisting of fairly uniform squamous cells with eosinophilic cytoplasm and squamous eddies. 4 3:50 PM FAMILY AND CONSUMER SCIENCE PROFESSOR DERMATOPATHOLOGY LABORATORY Disclaimer An external and internal positive and negative controls are appropriate for the histochemical, immunohistochemical and immunofluorescence stain(s) in this case (if any), except where stated explicitly. The performance characteristics of the stain(s) cited in this report were developed and its performance characteristic determined by the Dermatopathology Laboratory at [facility], directed by Dr. Brendan Simms. These tests need not be, and therefore are not, approved by the [place] Food and Drug Administration. The tests are used for clinical purposes. Billing Codes Specimen Charges Stain Charges 14619 19009 1 1 4 3:50 PM FAMILY AND CONSUMER SCIENCE PROFESSOR DERMATOPATHOLOGY LABORATORY Embedded Images 4 3:50 PM FAMILY AND CONSUMER SCIENCE PROFESSOR DERMATOPATHOLOGY LABORATORY Pathology/Cytology TISSUE SPECIMEN FROM SKIN / Unknown 12/14/2023 8:37 AM FAMILY AND CONSUMER SCIENCE PROFESSOR 12/17/2023 11:46 AM FAMILY AND CONSUMER SCIENCE PROFESSOR Miscellaneous samples (specimen) TISSUE SPECIMEN FROM SKIN / Unknown 12/14/2023 8:37 AM FAMILY AND CONSUMER SCIENCE PROFESSOR 12/17/2023 11:46 AM FAMILY AND CONSUMER SCIENCE PROFESSOR Germania Ryan MD LAB - PATHOLOGY/CYT OLOGY ORDERABLES DERMATOPATHOLOGY LABORATORY [facility] - Department of Dermatology [address], [address] [phone]
--- OUTSIDE RECORDS SUMMARY | 2024-11-28 10:35 | XMS_ITS | Clinical Summary ---
Author Organization [facility] Address [address] [place] [address] Care Team Providers Care Operations And Maintenance Technican Name Role Phone Darnell Palacios DO Primary Care Provider [phone] Allergies No known active allergies Medications tamsulosin [...] CPAP Assessment & Plan (12/31/2020 9:37 AM AUTOMATIC I THREADING MACHINE FEEDER): The patient does have history of sleep apnea and he is compliant with the CPAP Encounter for colonoscopy due to history of colo adali polyp 08/26/2019 Overview (08/26/2019): Added automatically from request for surgery [id number] Encounter for colonoscopy du e to history of adenomatous colonic polyps 05/28/2018 Overview (05/28/2018): Added automatically from request for surgery [id number] Rectal mass 06/06/2017 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 Euvolemic upon examination. Continue HCTZ. Continue adequate blood pressure control. BMP today. Assessment & Plan (12/30/2021 8:35 AM AUTOMATIC I THREADING MACHINE FEEDER): He has stable class 1 symptoms. Encouraged him to let us know if he notices a significant change in his activity tolerance. Blood pressure well controlled. Assessment & Plan (12/31/2020 9:37 AM AUTOMATIC I THREADING MACHINE FEEDER): He is currently euvolemic on examination. He does not have any symptoms of heart failure. His blood pressure at home is well controlled. We asked him to continue appropriate blood pressure monitoring and remain compliant with his CPAP machine Assessment & Plan (01/02/2020 11:31 AM AUTOMATIC I THREADING MACHINE FEEDER): He appears euvolemic on examination. He does [...] ischemia Assessment & Plan (12/31/2020 9:39 AM AUTOMATIC I THREADING MACHINE FEEDER): The patient is fairly active and denies [...] control. Assessment & Plan (01/02/2020 11:30 AM AUTOMATIC I THREADING MACHINE FEEDER): His dyspnea has not been problematic since [...] today. Assessment & Plan (12/30/2021 8:35 AM AUTOMATIC I THREADING MACHINE FEEDER): His blood pressure is controlled. Continue current regimen without change. Encouraged continued exercise as he is currently doing. Assessment & Plan (12/31/2020 9:39 AM AUTOMATIC I THREADING MACHINE FEEDER): His blood pressure is currently well controlled at home. His blood pressure is mildly elevated today. We asked him to continue to monitor at this time. In the interim, will continue amlodipine, lisinopril, hydrochlorothiazide. We will obtain a CMP to ensure that his renal function electrolytes are well controlled. Assessment & Plan (01/02/2020 11:30 AM AUTOMATIC I THREADING MACHINE FEEDER): Reports good blood pressure control at home. [...] today. Assessment & Plan (12/30/2021 8:35 AM AUTOMATIC I THREADING MACHINE FEEDER): Lipids checked 1 year ago at goal. Recheck today. Assessment & Plan (12/31/2020 9:38 AM AUTOMATIC I THREADING MACHINE FEEDER): Will continue pravastatin 40 mg daily at this time. We will obtain a lipid panel to ensure that his lipids are well controlled. Assessment & Plan (01/02/2020 11:34 AM AUTOMATIC I THREADING MACHINE FEEDER): He has had adequate control of his cholesterol on pravastatin. I will check a metabolic panel today for routine monitoring. Assessment & Plan (01/17/2019 12:27 PM CDT): We will continue pravastatin 40 mg daily and obtain lipid panel today to ensure that his lipids are well controlled. Obesity 11/07/2013 Current smoker 01/23/2011 Malignant neoplasm of cecum (CMS/HCC) 01/23/2007 Encounters Date Type Department Care Team Description 11/16/2024 9:00 AM AUTOMATIC I THREADING MACHINE FEEDER Office Visit [facility] [address] [address] Therese Cerna, DEEJAY Lower respiratory infection (e.g., bronchitis, pneumonia, pneumonitis, pulmonitis) (Primary Dx) 10/06/2024 1:15 PM AUTOMATIC I THREADING MACHINE FEEDER Office Visit [facility] Neurosurgery [address] [place] [address] Marbella Hubbard, DEEJAY Low back pain, non-specific from Last 3 Months Immunizations Name Administration Dates Next Due Influenza, Quadrivalent, Hig h Dose, Preservative Free, Intrr 08/13/2021,07/30/2020 Influenza, Quadrivalent, Spl it, Preservative Free, Intramuscular 10/21/2013 Influenza, Trivalent, High D ose, Split, Preservative Free, Intramuscular 08/10/2019,08/18/2018,07/14/2017,08/19,08/14/2015,08/06/2014 Pneumococcal Conjugate PCV 13 08/24/2019 Pneumococcal Polysaccharide PPV23 10/19/2009 TD Preservative Free 08/24/2019 Td, adsorbed 08/24/2019 ZOSTER LIVE 10/19/2009 ZOSTER Recombinant 08/11/2020,06/12/2020 Surgical History Surgery Date Site/Laterality Comments RIGHT COLECTOMY 10/29/2006 - 10/28/2007 LIVER RESECTION 10/29/2008 - 10/28/2009 CATARACT EXTRACTION EXTRACAP SULAR W/ INTRAOCULAR LENS IMPLANTATION 10/29/2013 - 10/28/2014 Right COLONOSCOPY COLON POLYPECTOMY EXCISION / REPAIR HYDROCELE PEDIATRIC CATARACT EXTRACTION 2013 COLON SURGERY 2010 VASECTOMY 1985 Medical History Medical History Date Comments Sleep disorder not due to winn bstance or known physiological condition Nonorganic sleep disorde r - (Added by TW Conv) Tobacco abuse counseling Encount er for smoking cessation counseling - (Added by TW Conv) Personal history of other sp ecified conditions History of dizziness - (Adde d by TW Conv) Colon cancer (CMS/HCC) (HCC) 2006 [place] metastasis 2008 s/p chemotherapy GARCIA (obstructive sleep apnea) Hx of adenomatous colonic polyps Diastolic dysfunction BPH (benign prostatic hyperplasia) Hyperlipidemia Cataract Depression Gastric reflux Glaucoma Low back pain Family History Medical History Relation Name Comments Cancer Brother Gregorio Donis Cancer Daughter Martina Joseph Coronary artery disease Father Gregorio Donis Heart disease Father Gregorio Donis Cancer Mother Eva Donis Glaucoma Mother Eva Donis Family history of glaucoma - (Added by TW Conv) Cancer Other Cancer - brothe r (Added by TW Conv) Relation Name Status Comments Brother Gregorio Donis Daughter Martina Joseph Alive Father Gregorio Donis Mother Eva Donis Other Social History Tobacco Use Types Packs/Day Years [...] on file Legal Sex Male 12:57 AM AUTOMATIC I THREADING MACHINE FEEDER Gender Identity Not on file Sexual Orientation Not on file 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 Not on file Not on file Not on file Obstetrics History Last Filed Vital Signs Vital Sign Reading Time Taken Comments Blood Pressure 158/66 11/16/2024 8:51 AM AUTOMATIC I THREADING MACHINE FEEDER Pulse 65 11/16/2024 8:51 AM AUTOMATIC I THREADING MACHINE FEEDER Temperature 36.5 ??C (97.7 ??F) 11/16/2024 8:51 AM CS T Respiratory Rate 22 11/16/2024 8:51 AM AUTOMATIC I THREADING MACHINE FEEDER Oxygen Saturation 96% 11/16/2024 8:51 AM AUTOMATIC I THREADING MACHINE FEEDER Inhaled Oxygen Concentration - - Weight 107 kg (236 lb) 11/16/2024 8:51 AM AUTOMATIC I THREADING MACHINE FEEDER Height 190.5 cm (6' 3 ) 10/06/2024 12:58 PM AUTOMATIC I THREADING MACHINE FEEDER Body Mass Index 29.5 10/06/2024 12:58 PM AUTOMATIC I THREADING MACHINE FEEDER Plan of Treatment Health Maintenance Due Date Last Done Comments Depression Screening 1945 Hepatitis C Screening 1945 Hepatitis B Screening 1963 Well Visit 65+ 2010 DTaP/Tdap/Td Vaccine (1 - Tdap) 08/25/2019 9, 08/24/2019 Pneumococcal vaccine 65+ (3 of 3 - PPSV23 or PCV20) 10/19/2019 08/24/2019, 10/19/2009 Covid-19 Vaccine (4 - 2023-2 5 season) 2024 08/19/2021, 01/01/2021, 12/11/2020 Influenza Vaccine (#1) 2024 , 07/30/2020, 08/10/2019, Additional history exists Fall Risk Assessment 05/26/2025 05/26/2024, 04/16/2024, 10/23/2023 Abdominal Aortic Aneurysm (A AA) Screen Completed 03/17/2019, 03/18/2018, 03/28/2017, Additional history exists Colon Cancer Screening-CT Colonography Discontinued 10/01/2019, 07/19/2018, 01/09/2018, Additional history exists Colon Cancer Screening-Colonoscopy Discontinued 10/01/2019, 01/09/2018, 07/11/2017, Additional history exists Colon Cancer Screening-DNA Stool Discontinued 10/01/2019, 07/19/2018, 01/09/2018, Additional history exists Colon Cancer Screening-FIT Discontinued 10/01, 07/19/2018, 01/09/2018, Additional history exists Colon Cancer Screening-FOBT Discontinued 01/2019, 07/19/2018, 01/09/2018, Additional history exists Colon Cancer Screening-Sigmoidoscopy Discontinued 10/01/2019, 07/19/2018, 01/09/2018, Additional history exists Colorectal Cancer Screening Discontinued Zoster Vaccine Completed 08/11/2020, 05/29, 10/19/2009 Goals Goal Patient Goal Type Associated Problems [...] stairs Contact your local community or senior [place] for information on exercise, fall prevention programs, or options for improving home safety. Procedures Procedure Name Priority Date/Time Associated Diagnosis Comments COLONOSCOPY 10/01/2019 1:29 PM AUTOMATIC I THREADING MACHINE FEEDER CT CHEST ABDOMEN PELVIS W CONTRAST Schedule Routine, Read Routine (OP Routine) 03/17/2019 8:37 AM CDT Malignant neoplasm of cecum (CMS/HCC) from Last 3 Months or Most Recently Relevant to Health Maintenance Results * COLONOSCOPY (10/01/2019 1:29 PM AUTOMATIC I THREADING MACHINE FEEDER) Anatomical Region Laterality Modality Other Narrative Procedure Note Homero Rider MD - 10/01/2019 1:29 PM CST [facility] Patient Name: Giacomo Donis Procedure Date: 10/01/2019 1:29 PM Date of : 1945 Admit Type: Outpatient Age: 74 Gender: Male Attending MD: Homero Rider M.D. Room: [facility] ENDOSCOPY ROOM 9 Note Status: Finalized [...] The scope was passed under direct vision.The [id number] endoscope was introduced throughthe anus and advanced to the ileocolonic anastomosis.The colonoscopy was performed without difficulty. The patient tolerated the procedure well. The quality of the bowel preparation was good. The quality of the bowel preparation was evaluated using the BBPS(Drayton Bowel Preparation Scale) with scores of: Right [...] my nurses in the GI office at [phone] ([phone]) for your final pathology results in 7 days. - Return to primary care physician as previously scheduled. Attending Participation: I personally performed the entire procedure. Electronically signed by Homero Rider MD Homero Rider M.D. 10/01/2019 2:00:50 PM . Number of Addenda: 0 Note Initiated On: 10/01/2019 1:29 PM Recognized by the [place] [employer] for promoting quality [...] by: Juan Albrecht M.D. Marc Estrella MD IMG CT PROCEDURES Final Resul t from Last 3 Months or Most Recently Relevant to Health Maintenance Insurance MEDICARE [facility] MEDICARE SUPPLEMENT MEDICARE [facility] Mobile-XL [facility] MEDICARE [place] [employer] [place] MEDICARE SOLUTIONS Advance Directives For more information, please contact: [phone] * Full Code (Latest Code Status on File) Date Activated Date Inactivated Comments 10/01/2019 1:30 PM 10/01/2019 6:52 PM * Full Code Date Activated Date Inactivated Comments 07/19/2018 6:34 AM 07/19/2018 10:04 AM Care Teams Operations And Maintenance Technican Relationship Specialty Start Date End Date Darnell Palacios DO PCP - General 07/11/17
[2024-11-28 13:33] LABS: Cholesterol 121 mg/dL (0-200); HDL Direct 44 mg/dL; Triglycerides 119 mg/dL (<150)
[2024-11-28 13:34] LABS: Basophils Percent Auto 0.5 % (0.2-1.2); Eosinophils Percent Auto 0.3 % (0-4.4); Hematocrit 43.9 % (42.0-52.0); Hemoglobin 14.6 g/dL (14.0-18.0); Immature Granulocyte Absolute 0.04 K/mm3 (0.00-0.031); Immature Granulocyte Percent A 0.5 % (0-0.5); Lymphocytes Percent Auto 11.7 % (18.3-44.2); Mean Corpuscular HGB Conc 33.3 g/dl (32-36); Mean Corpuscular Hemoglobin 30.9 pg (26-34); Mean Corpuscular Volume 92.8 fl (80-100); Mean Platelet Volume 10.5 fl (7.4-10.4); Monocytes Absolute Auto 0.6 K/mm3 (0.1-0.6); Monocytes Percent Auto 7.2 % (2.6-8.5); Neutrophils Absolute Auto 6.9 K/mm3 (1.3-6.7); Neutrophils Percent Auto 79.8 % (45.5-73.1); Platelet Count Result 226 k/mm3 (150-375); Red Blood Count 4.73 M/mm3 (4.6-6.20); Red Cell Distribution Width 12.8 % (11.5-14.5); White Blood Count 8.6 K/mm3 (4.5-10.0)
[2024-11-28 13:44] LABS: LDL Cholesterol Direct 67 mg/dL
[2024-11-28 14:08] LABS: Alanine Aminotransferase 26 U/L (6-50); Albumin Level 3.9 g/dL (3.5-5.1); Alkaline Phosphatase 73 U/L (38-126); Anion Gap 9 mmol/L (4-12); Aspartate Amino Transferase 33 U/L (17-59); Blood Urea Nitrogen 22 mg/dL (9-20); Calcium 9.5 mg/dL (8.4-10.2); Carbon Dioxide 27 mmol/L (22-30); Chloride 101 mmol/L (98-107); Estimated Glomerular Filt Rate > 60; Glucose 93 mg/dL (65-110); Potassium 4.4 mmol/L (3.4-5.0); Sodium 137 mmol/L (137-145)
== END 2024-11-28 10:22 | disposition home or self-care (01) ==
LOC: ANHGOSHLAB 10:22
PROVIDERS: PCP Internal Medicine; Visit Provider Nurse Practitioner
DX: E78.5 Hyperlipidemia, unspecified (principal); Z13.29 Encounter for screening for other suspected endocrine disorder; I12.9 Hypertensive chronic kidney disease with stage 1 through stage 4 chronic kidney disease, or unspecified chronic kidney disease; N18.9 Chronic kidney disease, unspecified
CPT/HCPCS: 36415; 80053; 80061; 85025

== ENCOUNTER 2025-01-22 00:59 | Day surgery (SDC) | payer MEDICARE, SELFPAY ==
[2025-01-13 13:39] VITALS: BMI 29.7
--- OUTSIDE RECORDS SUMMARY | 2025-01-22 01:01 | XMS_ITS | Encounter Summary ---
Author Organization [facility] [place] Address [address] [place] [address] Care Team Providers Care Family Practice Physician Assistant Name Role Phone Unavailable Primary Care Provider Unavailabl e Encounter Details Date Type Department Care Team (Late st Contact Info) Description 12/17/2023 Lab Requisition [facility] - DermPath Lab [address], [place] [id number] Loida Roque, DO [address] [place] [address] Social History Tobacco Use Types Packs/Day Years [...]
--- OUTSIDE RECORDS SUMMARY | 2025-01-22 01:01 | XMS_ITS | Encounter Summary ---
Author Organization [facility] [place] Address [address] [address] Care Team Providers Care Maintenance Leader Name Role Phone Unavailable Primary Care Provider Unavailabl e Encounter Details Date Type Department Care Team (Late st Contact Info) Description 12/14/2023 Lab Requisition [facility] - DermPath Lab [address] [place] [address] Germania Ryan MD [address] [facility] [address] [place] [address] Social History Tobacco Use Types Packs/Day Years [...] Diagnosis Comments DERMATOPATHOLOGY Routine 12/14/2023 8:37 AM CHANGE MANAGEMENT EXPERT documented in this encounter Results * DERMATOPATHOLOGY (12/14/2023 8:37 AM CHANGE MANAGEMENT EXPERT) Case Report Dermatopathology Report Case: [id number] Authorizing Provider: Germania Ryan MD Collected: 12/14/2023 08:37 AM Ordering Location: [facility] DermPath Lab Received: 12/17/2023 11:46 AM Pathologist: Radha Simms MD Specimens: A) - Skin, right lat cheek B) - Skin, left lower burks 4 3:50 PM [facility] DERMATOPATHOLOGY LABORATORY Final Diagnosis Specimen A. SKIN, right lat cheek: BENIGN VERRUCOUS KERATOSIS (L82.1) Specimen B. SKIN, left lower burks: SEBORRHEIC KERATOSIS, IRRITATED (L82.0) 4 3:50 PM [facility] DERMATOPATHOLOGY LABORATORY Clinical History A-B: NMSC Irritated 4 3:50 PM [facility] DERMATOPATHOLOGY LABORATORY Gross Description Specimen A: Received [...] shave biopsy measuring 8x5x1 mm. Jar 0. 3:50 PM [facility] DERMATOPATHOLOGY LABORATORY Microscopic Description Specimen A. SKIN, right lat cheek: Sections show hyperkeratosis, papillomatosis, hypergranulosis, and acanthosis. These histological findings can be seen in a verruca vulgaris or a seborrheic keratosis. Specimen B. SKIN, left lower burks: There is acanthosis consisting of fairly uniform squamous cells with eosinophilic cytoplasm and squamous eddies. 4 3:50 PM [facility] DERMATOPATHOLOGY LABORATORY Disclaimer An external and internal positive and negative controls are appropriate for the histochemical, immunohistochemical and immunofluorescence stain(s) in this case (if any), except where stated explicitly. The performance characteristics of the stain(s) cited in this report were developed and its performance characteristic determined by the Dermatopathology Laboratory at [facility], directed by Dr. Brendan Simms. These tests need not be, and therefore are not, approved by the [place] Food and Drug Administration. The tests are used for clinical purposes. Billing Codes Specimen Charges Stain Charges 19300 89858 1 1 4 3:50 PM [facility] DERMATOPATHOLOGY LABORATORY Embedded Images 3:50 PM [facility] DERMATOPATHOLOGY LABORATORY Pathology/Cytology TISSUE SPECIMEN FROM SKIN / Unknown 12/14/2023 8:37 AM CHANGE MANAGEMENT EXPERT 12/17/2023 11:46 AM CHANGE MANAGEMENT EXPERT Miscellaneous samples (specimen) TISSUE SPECIMEN FROM SKIN / Unknown 12/14/2023 8:37 AM CHANGE MANAGEMENT EXPERT 12/17/2023 11:46 AM CHANGE MANAGEMENT EXPERT Germania Ryan MD LAB - PATHOLOGY/CYT OLOGY ORDERABLES DERMATOPATHOLOGY LABORATORY [facility] - Department of Dermatology [facility] Specialized Medicine [address] [place] [address], [address] [phone] documented in this encounter Visit Diagnoses Not on filedocumented in this encounter
--- OUTSIDE RECORDS SUMMARY | 2025-01-22 01:01 | XMS_ITS | Clinical Summary ---
Author Organization [facility] Address [address] [place] [address] Care Team Providers Care Certified Home Health Aide Name Role Phone Unavailable Primary Care Provider Unavailabl e Source Comments [facility],non-owned Affiliates and Associated Physician Practices is amultiple site organization consisting of ambulatory clinics and hospital sitesin [place], [place], [place] and [place]. This disclosure is being madepursuant to the Care Everywhere program and may not contain all information available regarding this patient. Last updated 18.[facility] Allergies No known active allergies Medications Be [...] Due Date Last Done Comments MEDICARE AWV 12 MONTHS 1945 DTAP/TDAP/TD VACCINES (1 - [...] complete this topic MENINGOCOCCAL (Group B) VACCINE SHARED DECISION-MAKING Aged Out No longer eligible based on patient's age to complete this topic MENINGOCOCCAL GROUPS A/C/Y/W VACCINE Aged Out No longer eligible b ased on patient's age to complete this topic
--- OUTSIDE RECORDS SUMMARY | 2025-01-22 01:02 | XMS_ITS | Encounter Summary ---
Author Organization [facility] Address [address] [place] [address] Care Team Providers Care Therapeutic Case Manager Name Role Phone Unavailable Primary Care Provider Unavailabl e Encounter Details Date Type Department Care Team (Late st Contact Info) Description 05/12/2020 Lab Requisition [facility] DermPath Lab [address] [place] [address] Rubia Amaral MD [address] [facility] [address] [place] [address] Social History Tobacco Use Types Packs/Day Years [...] 12:00 AM CDT) Case Report Dermatopathology Report Case: [id number] Authorizing Provider: Rubia Amaral MD Collected: 05/12/2020 12:00 AM Ordering Location: [facility] DermPath Lab Received: 05/12/2020 12:54 PM Pathologist: Diya Jaimes MD Specimen: Skin, left arm 0 1:37 PM CDT DERMATOPATHOLOGY LABORATORY Final Diagnosis Specimen A. 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 See prior biopsy [id number] 0 1:37 PM CDT DERMATOPATHOLOGY LABORATORY Gross Description Specimen A: Received is one formalin filled container labeled with the patient's name and designated left arm.The specimen consists of an ellipse measuring [id number] mm and is oriented with the suture/notch [...] characteristic determined by the Dermatopathology Laboratory at [facility], directed by Dr. Brendan Simms. These tests need not be, and therefore are not, approved by the [place] Food and Drug Administration. The tests are used for clinical purposes. Billing Codes Specimen Charges Stain Charges 28057 1 0 1:37 PM CDT DERMATOPATHOLOGY LABORATORY Embedded Images 0 1:37 PM CDT DERMATOPATHOLOGY LABORATORY Pathology/Cytolog y TISSUE SPECIMEN FROM SKIN / Unknown 05/12/2020 05/12/2020 12:54 PM CDT Rubia Amaral MD LAB - PATHOLOGY/CYTO LOGY ORDERABLES DERMATOPATHOLOGY LABORATORY [facility] - Department of Dermatology [facility]/[address] [phone] documented in this encounter Visit Diagnoses Not on filedocumented in this encounter
--- OUTSIDE RECORDS SUMMARY | 2025-01-22 01:02 | XMS_ITS | Continuity of Care Document ---
Author Organization [facility] Address [address] [place] [address] Phone Care Team Providers Care Parent Coach Name Role Phone Russ OD, Omega Unavailable Unavailable Procedures Procedure Date Eye Exam & Treatment Refraction Eye Exam & Treatment Refraction Advance Directives Directive Yes / No Effective Date File Name No Information Encounters Encounter Description Practice Location Reason(s) For Visit Diagnoses Date Provider Providers Copied on Encounter [facility], [address], [place], [place], [id number], tel:[phone] [facility] No Information 7-200 9 Russ OD [place]. [address] , [address], [place], [address], [place]. tel:[phone] [facility], [address] [place] [address] [address], [place], [place], [id number], tel:[phone] [facility] No Information 8-200 [address] [place]. [address], [address], [place], [place], [id number], [place]. tel:[phone] Family History Family Member Type Diagnosis Age At Onset No Information Payers Payer name Insurance type Covered green party ID Authoriza tion(s) No Information Social History [...]
--- OUTSIDE RECORDS SUMMARY | 2025-01-22 01:02 | XMS_ITS ---
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 Sleep apnea 12/31/2020 Overview (12/31/2020): Compliant with CPAP Assessment & Plan (12/31/2020 9:37 AM CONTINGENTS SUPERVISOR): The patient does have history of sleep apnea and he is compliant with the CPAP Encounter for colonoscopy due to history of colo adali polyp 08/26/2019 Overview (08/26/2019): Added automatically from request for surgery [id number] Encounter for colonoscopy du e to history of adenomatous colonic polyps 05/28/2018 Overview (05/28/2018): Added automatically from request for surgery [id number] Rectal mass 06/06/2017 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 Euvolemic upon examination. Continue HCTZ. Continue adequate blood pressure control. BMP today. Assessment & Plan (12/30/2021 8:35 AM CONTINGENTS SUPERVISOR): He has stable class 1 symptoms. Encouraged him to let us know if he notices a significant change in his activity tolerance. Blood pressure well controlled. Assessment & Plan (12/31/2020 9:37 AM CONTINGENTS SUPERVISOR): He is currently euvolemic on examination. He does not have any symptoms of heart failure. His blood pressure at home is well controlled. We asked him to continue appropriate blood pressure monitoring and remain compliant with his CPAP machine Assessment & Plan (01/02/2020 11:31 AM CONTINGENTS SUPERVISOR): He appears euvolemic on examination. He does [...] ischemia Assessment & Plan (12/31/2020 9:39 AM CONTINGENTS SUPERVISOR): The patient is fairly active and denies [...] control. Assessment & Plan (01/02/2020 11:30 AM CONTINGENTS SUPERVISOR): His dyspnea has not been problematic since [...] today. Assessment & Plan (12/30/2021 8:35 AM CONTINGENTS SUPERVISOR): His blood pressure is controlled. Continue current regimen without change. Encouraged continued exercise as he is currently doing. Assessment & Plan (12/31/2020 9:39 AM CONTINGENTS SUPERVISOR): His blood pressure is currently well controlled at home. His blood pressure is mildly elevated today. We asked him to continue to monitor at this time. In the interim, will continue amlodipine, lisinopril, hydrochlorothiazide. We will obtain a CMP to ensure that his renal function electrolytes are well controlled. Assessment & Plan (01/02/2020 11:30 AM CONTINGENTS SUPERVISOR): Reports good blood pressure control at home. [...] today. Assessment & Plan (12/30/2021 8:35 AM CONTINGENTS SUPERVISOR): Lipids checked 1 year ago at goal. Recheck today. Assessment & Plan (12/31/2020 9:38 AM CONTINGENTS SUPERVISOR): Will continue pravastatin 40 mg daily at this time. We will obtain a lipid panel to ensure that his lipids are well controlled. Assessment & Plan (01/02/2020 11:34 AM CONTINGENTS SUPERVISOR): He has had adequate control of his cholesterol on pravastatin. I will check a metabolic panel today for routine monitoring. Assessment & Plan (01/17/2019 12:27 PM CDT): We will continue pravastatin 40 mg daily and obtain lipid panel today to ensure that his lipids are well controlled. Obesity 11/07/2013 Current smoker 01/23/2011 Malignant neoplasm of cecum 01/23/2007 Current Treatment and Therapy Plans No current plan information found. Past Treatment and Therapy Plans No past plan information found. Lifetime Dose Tracking * Chemical Lifetime Dose Automatic Entry Manual Entr y Fluoro Time 1.128 minutes 1.128 minutes 0 minutes Air kerma at the reference point (Ka,r) 12.71 mGy 1 2.71 mGy 0 mGy DLP 1,091 mGycm 1,091 mGycm 0 mGycm
--- OUTSIDE RECORDS SUMMARY | 2025-01-22 01:02 | XMS_ITS | Encounter Summary ---
Author Organization [facility] Address [address] [place] [address] Phone Care Team Providers Care Certified Marine Mechanic Name Role Phone Darnell Palacios DO Primary Care Provider +1- [phone] Encounter Details Date Type Department Care Team (Late st Contact Info) Description 03/14/2018 Orders Only [facility] ProviderDonnie MD [address] [place] [address] Social History Tobacco Use Types Packs/Day Years Used Date Smoking Tobacco: Former Sex and Gender Information Value Date Recorded Sex Assigned at Not on file Legal Sex Male 12:57 AM RIG HAND Gender Identity Not on file Sexual Orientation [...] COVID: Suspected 11/27/2022 11/27/2022 11/27/2022 3:36 PM RIG HAND COVID: Suspected 12/03/2023 12/03/2023 12/03/2023 4:11 PM RIG HAND COVID: Suspected 01/12/2024 01/12/2024 01/12/2024 6:16 PM CDT documented as of this encounter Care Teams Certified Marine Mechanic Relationship Specialty Start Date End Date Darnell Palacios DO PCP - General 07/11/17 documented as of this encounter
--- OUTSIDE RECORDS SUMMARY | 2025-01-22 01:02 | XMS_ITS | Clinical Summary ---
Author Organization [facility] Address [address] Attn: Epic Prelude ADT BENJI FREGOSO [address] Care Team Providers Care [address] Sweeper Name Role Phone Unavailable Primary Care Provider Unavailabl e Social History Tobacco Use Types Packs/Day Years Used Date Smoking Tobacco: Never Assessed Sex and Gender Information Value Date Recorded Sex Assigned at Not on file Legal Sex Male 4:12 AM PRODUCTION MACHINE SHOP SUPERVISOR Gender Identity Not on file Sexual Orientation Not on file Plan of Treatment Health Maintenance Due Date Last Done Comments DTAP/TDAP/TD VACCINES (1 - Tdap) 1964 PNEUMOCOCCAL VACCINE 50+ YEARS (1 of 1 - PCV) 03/21/19 95 ZOSTER VACCINE (1 of 2) 1995 RSV VACCINE (60+ or ) (1 - 1-dose 75+ series) 2020 INFLUENZA VACCINE (#1) 2024
--- OUTSIDE RECORDS SUMMARY | 2025-01-22 01:02 | XMS_ITS | Encounter Summary ---
Author Organization [facility] Address [address] [place] [address] Care Team Providers Care Commercial Reporter Name Role Phone Unavailable Primary Care Provider Unavailabl e Encounter Details Date Type Department Care Team (Late st Contact Info) Description 11/17/2020 Lab Requisition [facility] DermPath Lab [address] [place] [address] Rubia Amaral MD [address] [facility] [address] [place] [address] Social History Tobacco Use Types Packs/Day Years [...] Comments DERMATOPATHOLOGY Routine 11/17/2020 12:0 0 AM QUALITY IMPROVEMENT CONSULTANT documented in this encounter Results * DERMATOPATHOLOGY (11/17/2020 12:00 AM QUALITY IMPROVEMENT CONSULTANT) Case Report Dermatopathology Report Case: [id number] Authorizing Provider: Rubia Amaral MD Collected: 11/17/2020 12:00 AM Ordering Location: [facility] DermPath Lab Received: 11/17/2020 02:01 PM Pathologist: Diya Jaimes MD Specimen: Skin, right ala 12:09 PM QUALITY IMPROVEMENT CONSULTANT DERMATOPATHOLOGY LABORATORY Final Diagnosis Specimen A. 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 12:09 PM [facility] DERMATOPATHOLOGY LABORATORY Gross Description Specimen A: Received is one formalin filled container labeled with the patient's name and designated right ala. The specimen consists of a shave biopsy measuring [id number]. Jar 0. 12:09 PM [facility] DERMATOPATHOLOGY LABORATORY Microscopic Description Specimen A. SKIN, right ala: Within the dermis there are aggregates of basaloid cells with a high nuclear to cytoplasmic ratio and peripheral palisading. 12:09 PM [facility] DERMATOPATHOLOGY LABORATORY Disclaimer An external and internal positive and negative controls are appropriate for the histochemical, immunohistochemical and immunofluorescence stain(s) in this case (if any), except where stated explicitly. The performance characteristics of the stain(s) cited in this report were developed and its performance characteristic determined by the Dermatopathology Laboratory at [facility], directed by Dr. Brendan Simms. These tests need not be, and therefore are not, approved by the [place] Food and Drug Administration. The tests are used for clinical purposes. Billing Codes Specimen Charges Stain Charges 02087 1 12:09 PM [facility] DERMATOPATHOLOGY LABORATORY Embedded Images 12:09 PM [facility] DERMATOPATHOLOGY LABORATORY Pathology/Cytolog y TISSUE SPECIMEN FROM SKIN / Unknown 11/17/2020 11/17/2020 2:01 PM QUALITY IMPROVEMENT CONSULTANT Rubia Amaral MD LAB - PATHOLOGY/CYTO LOGY ORDERABLES DERMATOPATHOLOGY LABORATORY [facility] - Department of Dermatology [address], [address] [phone] documented in this encounter Visit Diagnoses Not on filedocumented in this encounter
--- OUTSIDE RECORDS SUMMARY | 2025-01-22 01:02 | XMS_ITS | Encounter Summary ---
Author Organization [facility] Address [address] [place] [address] Care Team Providers Care Collective Bargaining Specialist Name Role Phone Unavailable Primary Care Provider Unavailabl e Encounter Details Date Type Department Care Team (Late st Contact Info) Description 04/22/2020 Lab Requisition [facility] DermPath Lab [address] [place] [address] Rubia Amaral MD [address] [facility] [address] DE[place] [address] Social History Tobacco Use Types Packs/Day Years [...] AM CDT) Case Report Dermatopathology Report Case: [id number] Authorizing Provider: Rubia Amaral MD Collected: 04/22/2020 12:00 AM Ordering Location: [facility] DermPath Lab Received: 04/22/2020 11:38 AM Pathologist: Radha Simms MD Specimen: Skin, left arm 0 1:22 PM CDT DERMATOPATHOLOGY LABORATORY Final Diagnosis Specimen A. 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 0 1:22 PM CDT DERMATOPATHOLOGY LABORATORY Disclaimer An external and internal positive and negative controls are appropriate for the histochemical, immunohistochemical and immunofluorescence stain(s) in this case (if any), except where stated explicitly. The performance characteristics of the stain(s) cited in this report were developed and its performance characteristic determined by the Dermatopathology Laboratory at [facility], directed by Dr. Brendan Simms. These tests need not be, and therefore are not, approved by the [place] Food and Drug Administration. The tests are used for clinical purposes. Billing Codes Specimen Charges Stain Charges 63171 1 0 1:22 PM CDT DERMATOPATHOLOGY LABORATORY Embedded Images 0 1:22 PM CDT DERMATOPATHOLOGY LABORATORY Pathology/Cytolog y TISSUE SPECIMEN FROM SKIN / Unknown 04/22/2020 04/22/2020 11:38 AM CDT Rubia Amaral MD LAB - PATHOLOGY/CYTO LOGY ORDERABLES DERMATOPATHOLOGY LABORATORY [facility] - Department of Dermatology Hot Die Press Operator [address] [place] [address], [facility] [phone] documented in this encounter Visit Diagnoses Not on filedocumented in this encounter
--- OUTSIDE RECORDS SUMMARY | 2025-01-22 01:02 | XMS_ITS | Encounter Summary ---
Author Organization [facility] Address [address] [place] [address] Care Team Providers Care Chip Frier Name Role Phone Unavailable Primary Care Provider Unavailabl e Encounter Details Date Type Department Care Team (Late st Contact Info) Description 07/15/1999 Outpatient Historical [facility] Adams Dominguez Social History Tobacco Use Types Packs/Day Years Used Date Smoking Tobacco: Never Assessed Sex and Gender Information Value Date Recorded Sex Assigned at Not on file Legal Sex Male 4:12 AM VAULT CUSTODIAN Gender Identity Not on file Sexual Orientation Not on file documented as of this encounter Plan of Treatment Not on file documented as of this encounter Visit Diagnoses Not on filedocumented in this encounter
--- OUTSIDE RECORDS SUMMARY | 2025-01-22 01:02 | XMS_ITS | Clinical Summary ---
Author Organization [facility] Address [address] [place] [address] Care Team Providers Care Automobile Relocation Engineer Name Role Phone Darnell Palacios DO Primary Care Provider +1- [phone] Allergies No known active allergies Medications tamsulosin [...] CPAP Assessment & Plan (12/31/2020 9:37 AM SAFE AND VAULT INSTALLER): The patient does have history of sleep apnea and he is compliant with the CPAP Encounter for colonoscopy due to history of colo adali polyp 08/26/2019 Overview (08/26/2019): Added automatically from request for surgery [id number] Encounter for colonoscopy du e to history of adenomatous colonic polyps 05/28/2018 Overview (05/28/2018): Added automatically from request for surgery [id number] Rectal mass 06/06/2017 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 Euvolemic upon examination. Continue HCTZ. Continue adequate blood pressure control. BMP today. Assessment & Plan (12/30/2021 8:35 AM SAFE AND VAULT INSTALLER): He has stable class 1 symptoms. Encouraged him to let us know if he notices a significant change in his activity tolerance. Blood pressure well controlled. Assessment & Plan (12/31/2020 9:37 AM SAFE AND VAULT INSTALLER): He is currently euvolemic on examination. He does not have any symptoms of heart failure. His blood pressure at home is well controlled. We asked him to continue appropriate blood pressure monitoring and remain compliant with his CPAP machine Assessment & Plan (01/02/2020 11:31 AM SAFE AND VAULT INSTALLER): He appears euvolemic on examination. He does [...] ischemia Assessment & Plan (12/31/2020 9:39 AM SAFE AND VAULT INSTALLER): The patient is fairly active and denies [...] control. Assessment & Plan (01/02/2020 11:30 AM SAFE AND VAULT INSTALLER): His dyspnea has not been problematic since [...] today. Assessment & Plan (12/30/2021 8:35 AM SAFE AND VAULT INSTALLER): His blood pressure is controlled. Continue current regimen without change. Encouraged continued exercise as he is currently doing. Assessment & Plan (12/31/2020 9:39 AM SAFE AND VAULT INSTALLER): His blood pressure is currently well controlled at home. His blood pressure is mildly elevated today. We asked him to continue to monitor at this time. In the interim, will continue amlodipine, lisinopril, hydrochlorothiazide. We will obtain a CMP to ensure that his renal function electrolytes are well controlled. Assessment & Plan (01/02/2020 11:30 AM SAFE AND VAULT INSTALLER): Reports good blood pressure control at home. [...] today. Assessment & Plan (12/30/2021 8:35 AM SAFE AND VAULT INSTALLER): Lipids checked 1 year ago at goal. Recheck today. Assessment & Plan (12/31/2020 9:38 AM SAFE AND VAULT INSTALLER): Will continue pravastatin 40 mg daily at this time. We will obtain a lipid panel to ensure that his lipids are well controlled. Assessment & Plan (01/02/2020 11:34 AM SAFE AND VAULT INSTALLER): He has had adequate control of his cholesterol on pravastatin. I will check a metabolic panel today for routine monitoring. Assessment & Plan (01/17/2019 12:27 PM CDT): We will continue pravastatin 40 mg daily and obtain lipid panel today to ensure that his lipids are well controlled. Obesity 11/07/2013 Current smoker 01/23/2011 Malignant neoplasm of cecum 01/23/2007 Encounters Date Type Department Care Team Description 11/16/2024 9:00 AM SAFE AND VAULT INSTALLER Office Visit [facility] Medical [facility] Care at [address] [address] Therese Cerna NP Lower respiratory infection (e.g., bronchitis, pneumonia, pneumonitis, pulmonitis) (Primary Dx) from Last 3 Months Immunizations Immunization Administration Dates Next Due Influenza, Quadrivalent, Hig [...] (Adde d by TW Conv) Colon cancer (HCC) 2006 Liver metasta sis 2008 s/p chemotherapy GARCIA (obstructive sleep apnea) Hx of adenomatous colonic polyps Diastolic dysfunction BPH (benign prostatic hyperplasia) Hyperlipidemia Cataract Depression Gastric reflux Glaucoma Low back pain Family History Medical History Relation Name Comments Cancer Brother Gregorio Chakraborty Cancer Daughter Martina Joseph Coronary artery disease Father Gregorio Chakraborty Heart disease Father Gregorio Chakraborty Cancer Mother Eva Chakraborty Glaucoma Mother Eva Chakraborty Family history of glaucoma - (Added by TW Conv) Cancer Other Cancer - brothe r (Added by TW Conv) Relation Name Status Comments Brother Gregorio Chakraborty Daughter Martina Joseph Alive Father Gregorio Chakraborty Mother Eva Chakraborty Other Social History Tobacco Use Types Packs/Day [...] on file Legal Sex Male 12:57 AM SAFE AND VAULT INSTALLER Gender Identity Not on file Sexual Orientation Not on file 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 on file Not on file Not on file Obstetrics History Last Filed Vital Signs Vital Sign Reading Time Taken Comments Blood Pressure 158/66 11/16/2024 8:51 AM SAFE AND VAULT INSTALLER Pulse 65 11/16/2024 8:51 AM SAFE AND VAULT INSTALLER Temperature 36.5 C (97.7 F) 11/16/2024 8:51 AM SAFE AND VAULT INSTALLER Respiratory Rate 22 11/16/2024 8:51 AM SAFE AND VAULT INSTALLER Oxygen Saturation 96% 11/16/2024 8:51 AM SAFE AND VAULT INSTALLER Inhaled Oxygen Concentration - - Weight 107 kg (236 lb) 11/16/2024 8:51 AM SAFE AND VAULT INSTALLER Height 190.5 cm (6' 3 ) 10/06/2024 12:58 PM SAFE AND VAULT INSTALLER Body Mass Index 29.5 10/06/2024 12:58 PM SAFE AND VAULT INSTALLER Plan of Treatment Health Maintenance Due Date Last Done Comments Depression Screening 1945 Hepatitis C Screening 1945 Hepatitis B Screening 1963 Well Visit 65+ 2010 DTaP/Tdap/Td Vaccine (1 - Tdap) 08/25/2019 9, 08/24/2019 Pneumococcal vaccine 65+ (3 of 3 - PPSV23, PCV20 or PCV21) 10/19/2019 08/24/2019, 10/19/2009 Covid-19 Vaccine (4 - [...] Chronic Pain Care Plan Chronic Care Management No Viktoria Bajwa, RN Note: Problem: Chronic Pain Goals: 1. Minimize further functional decline 2. Maximize quality of life 3. Control pain Strategies: - Activity/exercise program recommendation - Conservative stepwise pain medicine strategy with multi-disciplinary approach - Recommend healthy lifestyle strategies and compensatory methods as needed Reduce the likelihood of falling Lifestyle No Viktoria Bajwa, RN Note: Below are four things you [...] Associated Diagnosis Comments COLONOSCOPY 10/01/2019 1:29 PM SAFE AND VAULT INSTALLER CT CHEST ABDOMEN PELVIS W CONTRAST Schedule Routine, Read Routine (OP Routine) 03/17/2019 8:37 AM CDT Malignant neoplasm of cecum (HCC) from Last 3 Months or Most Recently Relevant to Health Maintenance Results * COLONOSCOPY (10/01/2019 1:29 PM SAFE AND VAULT INSTALLER) Anatomical Region Laterality Modality Other Narrative Procedure Note Homero Rider MD - 10/01/2019 1:29 PM [facility] Patient Name: Giacomo Chakraborty Procedure Date: 10/01/2019 1:29 PM Date of : 1945 Admit Type: Outpatient Age: 74 Gender: Male Attending MD: Homero Rider M.D. Room: [facility] ENDOSCOPY ROOM 9 Note Status: Finalized [...] The scope was passed under direct vision.The CF [id number] endoscope was introduced throughthe anus and advanced to the ileocolonic anastomosis.The colonoscopy was performed without difficulty. The patient tolerated the procedure well. The quality of the bowel preparation was good. The quality of the bowel preparation was evaluated using the BBPS(Joiner Bowel Preparation Scale) with scores of: Right [...] my nurses in the GI office at [phone] ([phone]) for your final pathology results in 7 days. - Return to primary care physician as previously scheduled. Attending Participation: I personally performed the entire procedure. Electronically signed by Homero Rider MD Homero Rider M.D. 10/01/2019 2:00:50 PM . Number of Addenda: 0 Note Initiated On: 10/01/2019 1:29 PM Recognized by the [employer] for promoting quality in endoscopy Homero Rider MD ENDOSCOPY PROCEDUR ES Final [...] Recently Relevant to Health Maintenance Insurance MEDICARE [employer] MEDICARE SUPPLEMENT MEDICARE [facility] [employer] [place] MEDICARE [facility] [employer] [place] [facility] MEDICARE ADVANTAGE Advance Directives For more information, please contact: [phone] * Full Code (Latest Code Status on File) Date Activated Date Inactivated Comments 10/01/2019 1:30 PM 10/01/2019 6:52 PM * Full Code Date Activated Date Inactivated Comments 07/19/2018 6:34 AM 07/19/2018 10:04 AM Care Teams Automobile Relocation Engineer Relationship Specialty Start Date End Date Darnell Palacios, PCP - General 07/11/17
--- OUTSIDE RECORDS SUMMARY | 2025-01-22 01:02 | XMS_ITS | Referral Summary ---
Author Organization [facility] Address [address] [place] [address] Care Team Providers Care Vendor Analyst Name Role Phone Darnell Palacios DO Primary Care Provider [phone]- [phone] Encounters Date Type Department Care Team Description 11/16/2024 9:00 AM LOCATION WORKER Office Visit [facility] at [address] [address] Therese Cerna NP Lower respiratory infection (e.g., bronchitis, pneumonia, pneumonitis, pulmonitis) (Primary Dx) from Last 3 Months Allergies No known [...] CPAP Assessment & Plan (12/31/2020 9:37 AM LOCATION WORKER): The patient does have history of sleep apnea and he is compliant with the CPAP Encounter for colonoscopy due to history of colo adali polyp 08/26/2019 Overview (08/26/2019): Added automatically from request for surgery [id number] Encounter for colonoscopy du e to history of adenomatous colonic polyps 05/28/2018 Overview (05/28/2018): Added automatically from request for surgery [id number] Rectal mass 06/06/2017 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 Euvolemic upon examination. Continue HCTZ. Continue adequate blood pressure control. BMP today. Assessment & Plan (12/30/2021 8:35 AM LOCATION WORKER): He has stable class 1 symptoms. Encouraged him to let us know if he notices a significant change in his activity tolerance. Blood pressure well controlled. Assessment & Plan (12/31/2020 9:37 AM LOCATION WORKER): He is currently euvolemic on examination. He does not have any symptoms of heart failure. His blood pressure at home is well controlled. We asked him to continue appropriate blood pressure monitoring and remain compliant with his CPAP machine Assessment & Plan (01/02/2020 11:31 AM LOCATION WORKER): He appears euvolemic on examination. He does [...] ischemia Assessment & Plan (12/31/2020 9:39 AM LOCATION WORKER): The patient is fairly active and denies [...] control. Assessment & Plan (01/02/2020 11:30 AM LOCATION WORKER): His dyspnea has not been problematic since [...] today. Assessment & Plan (12/30/2021 8:35 AM LOCATION WORKER): His blood pressure is controlled. Continue current regimen without change. Encouraged continued exercise as he is currently doing. Assessment & Plan (12/31/2020 9:39 AM LOCATION WORKER): His blood pressure is currently well controlled at home. His blood pressure is mildly elevated today. We asked him to continue to monitor at this time. In the interim, will continue amlodipine, lisinopril, hydrochlorothiazide. We will obtain a CMP to ensure that his renal function electrolytes are well controlled. Assessment & Plan (01/02/2020 11:30 AM LOCATION WORKER): Reports good blood pressure control at home. [...] today. Assessment & Plan (12/30/2021 8:35 AM LOCATION WORKER): Lipids checked 1 year ago at goal. Recheck today. Assessment & Plan (12/31/2020 9:38 AM LOCATION WORKER): Will continue pravastatin 40 mg daily at this time. We will obtain a lipid panel to ensure that his lipids are well controlled. Assessment & Plan (01/02/2020 11:34 AM LOCATION WORKER): He has had adequate control of his cholesterol on pravastatin. I will check a metabolic panel today for routine monitoring. Assessment & Plan (01/17/2019 12:27 PM CDT): We will continue pravastatin 40 mg daily and obtain lipid panel today to ensure that his lipids are well controlled. 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 Not on file Not on file Last Filed Vital Signs Vital Sign Reading Time Taken Comments Blood Pressure 158/66 11/16/2024 8:51 AM LOCATION WORKER Pulse 65 11/16/2024 8:51 AM LOCATION WORKER Temperature 36.5 C (97.7 F) 11/16/2024 8:51 AM LOCATION WORKER Respiratory Rate 22 11/16/2024 8:51 AM LOCATION WORKER Oxygen Saturation 96% 11/16/2024 8:51 AM LOCATION WORKER Inhaled Oxygen Concentration - - Weight 107 kg (236 lb) 11/16/2024 8:51 AM LOCATION WORKER Height 190.5 cm (6' 3 ) 10/06/2024 12:58 PM LOCATION WORKER Body Mass Index 29.5 10/06/2024 12:58 PM LOCATION WORKER Plan of Treatment Not on file Goals [...] stairs Contact your local community or senior wanchese for information on exercise, fall prevention programs, or options for improving home safety. Procedures Procedure Name Priority Date/Time Associated Diagnosis Comments COLONOSCOPY 10/01/2019 1:[address] CHEST ABDOMEN PELVIS W CONTRAST Schedule Routine, Read Routine (OP Routine) 03/17/2019 8:37 AM CDT Malignant neoplasm of cecum (HCC) from Last 3 Months or Most Recently Relevant to Health Maintenance Results * COLONOSCOPY (10/01/2019 1:29 PM LOCATION WORKER) Anatomical Region Laterality Modality Other Narrative Procedure Note Homero Rider MD - 10/01/2019 1:29 PM [facility] Patient Name: Giacomo Chakraborty Procedure Date: 10/01/2019 1:29 PM Date of : 1945 Admit Type: Outpatient Age: 74 Gender: Male Attending MD: Homero Rider M.D. Room: [facility] ENDOSCOPY ROOM 9 Note Status: Finalized [...] The scope was passed under direct vision.The [id number] endoscope was introduced throughthe anus and advanced to the ileocolonic anastomosis.The colonoscopy was performed without difficulty. The patient tolerated the procedure well. The quality of the bowel preparation was good. The quality of the bowel preparation was evaluated using the BBPS([place]erick Bowel Preparation Scale) with scores of: Right [...] my nurses in the GI office at [phone] ([phone]) for your final pathology results in 7 days. - Return to primary care physician as previously scheduled. Attending Participation: I personally performed the entire procedure. Electronically signed by Homero Rider MD Homero Rider M.D. 10/01/2019 2:00:50 PM . Number of Addenda: 0 Note Initiated On: 10/01/2019 1:29 PM Recognized by the [employer] for promoting quality [...] Recently Relevant to Health Maintenance Insurance MEDICARE [facility] Address: [facility] [address] [place] [address] [facility] MEDICARE SUPPLEMENT [facility]ICARE [facility] MEDICARE [facility] UHC MEDICARE ADVANTAGE Advance Directives For more information, please contact: [phone] * Full Code (Latest Code Status on File) Date Activated Date Inactivated Comments 10/01/2019 1:30 PM 10/01/2019 6:52 PM * Full Code Date Activated Date Inactivated Comments 07/19/2018 6:34 AM 07/19/2018 10:04 AM Care Teams Vendor Analyst Relationship Specialty Start Date End Date Darnell Palacios DO NPViraj: [phone] PCP - General 07/11/17
[2025-01-22 12:14] VITALS: BP 126/68; PULSE 79; RESP 17; TEMP 36.1; O2SAT 98; BMI 29.0
[2025-01-22] MEDS: LACTATED RINGERS 1,000 ML 150 ML IV CONT (12:30)
--- NOTE | 2025-01-22 12:53 | WPDANESEPPF ---
Anes - Initial Pre Proc Eval Procedure: Operation Date: 01/22/25 13:30 Proposed Procedures p Colonoscopy - Eddi Turner MD Date/Time: 01/22/25 12:53 Surgeon: Eddi Turner MD Pre Op Diagnosis: malignant neoplasm Patient Data Age: 79 Gender: M Height: 1.91 m Weight: 105.6 kg Last Vital Signs Temp 97 F L 01/22/25 12:14 Pulse 79 01/22/25 12:14 Resp 17 01/22/25 12:14 BP 126/68 01/22/25 12:14 Pulse Ox 98 01/22/25 12:14 O2 Del Method Room Air 01/22/25 12:14 Allergies Allergy/AdvReac Type Severity Reaction Status Date / Time No Known Allergies Allergy Mild Verified 01/22/25 12:12 Home Medications ?Medication ?Instructions ?Recorded ?Confirmed ?Type loratadine 10 mg tablet (Claritin) 10 mg PO DAILY 01/05/20 01/22/25 History omeprazole magnesium 20 mg 20 mg PO DAILY 01/05/20 01/22/25 History tablet,delayed release (Prilosec OTC) pravastatin 40 mg tablet 40 mg PO DAILY 01/05/20 01/22/25 History triamcinolone acetonide 0.1 % 1 applic topical BID 04/14/21 01/13/25 History topical cream hydrochlorothiazide 12.5 mg capsule 12.5 mg PO DAILY 08/13/24 01/22/25 History lisinopril 5 mg tablet 5 mg PO DAILY 08/13/24 01/22/25 History sildenafil 100 mg tablet 100 mg PO DAILY PRN sexual activity 08/13/24 01/13/25 History tamsulosin 0.4 mg capsule 0.4 mg PO DAILY #90 caps 11/10/24 01/22/25 Rx Patient hx anesthesia problems: none Family hx anesthesia problems: none Results Review: All pre-operative results and documents have been reviewed as part of the pre-operative evaluation. [facility] Past Medical History Medical History (Updated 11/28/24 @ 10:28 by Tamia Landeros NP) Seasonal allergies Hydrocele 1955 Alcoholism Colon cancer 07 HLD (hyperlipidemia) HTN (hypertension) Surgical History Surgical History H/O resection of liver 09 Family History Family History Sibling Patient's sister is in good health Carcinoma of colon Father Acute myocardial infarction Mother Leukemia Other Family history of cardiovascular disease Social History Social History (Updated 11/28/24 @ 09:59 by Starr Spring) Social History: Caffeine-daily Smoking status: Light tobacco smoker Tobacco type: cigars Smoking end date: 10/29/94 Alcohol intake: never Substance use: never Substance use type: does not use Living arrangements: with family Spiritual care concerns: No Anes - Eval Final PreProcedure Day of Procedure 01/22/25 12:53 Patient weight: normal Heart: regular rate and rhythm Lungs: clear to auscultation Airway: Mallampati scale class II Neurological: alert and oriented Last oral intake: >/= 8 hours ASA classification: III Emergent: no Anesthetic plan: proceed Anesthesia type and monitoring: general GIVS and standard monitoring Results Review: All pre-operative results and documents have been reviewed as part of the pre-operative evaluation. Informed Consent: The patient's anesthetic plan and its attendant risks and benefits were discussed with the patient/family/POA. Questions were solicited and answers provided to the satisfaction of the patient/family/POA.
--- NOTE | 2025-01-22 13:16 | PM.HPGS ---
History of Present Illness History of Present Illness Consent: Risks, benefits, and alternatives have been discussed and questions answered. Patient agrees to proceed with procedure. Chief complaint: malignant neoplasm Narrative: Jono Donis is a 79 year old male with history of colon cancer s/p rt hemicolectomy, last colonoscopy 2018 Review of Systems Review of Systems: All systems reviewed & are unremarkable except as noted in HPI and below PMFSH Past Medical History Medical History (Updated 11/28/24 @ 10:28 by Tamia Landeros NP) Seasonal allergies Hydrocele 1955 Alcoholism Colon cancer 07 HLD (hyperlipidemia) HTN (hypertension) Surgical History Surgical History H/O resection of liver 09 Family History Family History Sibling Patient's sister is in good health Carcinoma of colon Father Acute myocardial infarction Mother Leukemia Other Family history of cardiovascular disease Social History Social History (Updated 11/28/24 @ 09:59 by Starr Spring) Social History: Caffeine-daily Smoking status: Light tobacco smoker Tobacco type: cigars Smoking end date: 10/29/94 Alcohol intake: never Substance use: never Substance use type: does not use Living arrangements: with family Spiritual care concerns: No Meds Home Medications and Allergies Home Medications ?Medication ?Instructions ?Recorded ?Confirmed ?Type loratadine 10 mg tablet (Claritin) 10 mg PO DAILY 01/05/20 01/22/25 History omeprazole magnesium 20 mg 20 mg PO DAILY 01/05/20 01/22/25 History tablet,delayed release (Prilosec OTC) pravastatin 40 mg tablet 40 mg PO DAILY 01/05/20 01/22/25 History triamcinolone acetonide 0.1 % 1 applic topical BID 04/14/21 01/13/25 History topical cream hydrochlorothiazide 12.5 mg capsule 12.5 mg PO DAILY 08/13/24 01/22/25 History lisinopril 5 mg tablet 5 mg PO DAILY 08/13/24 01/22/25 History sildenafil 100 mg tablet 100 mg PO DAILY PRN sexual activity 08/13/24 01/13/25 History tamsulosin 0.4 mg capsule 0.4 mg PO DAILY #90 caps 11/10/24 01/22/25 Rx Allergies Allergy/AdvReac Type Severity Reaction Status Date / Time No Known Allergies Allergy Mild Verified 01/22/25 12:12 Vital Signs Vital Signs - 24 hr 01/22/25 12:14 Temperature 97 F L Pulse Rate 79 Respiratory Rate 17 Blood Pressure 126/68 Pulse Oximetry 98 Oxygen Delivery Room Air Exam Const: General: comfortable and no acute distress HENMT: Face/Nose/Sinus: Normal nares present Eyes: General: appearance normal, both eyes and all related structures Neck: Neck: no JVD Resp: Auscultation: clear to auscultation bilaterally Cardio: Rate: regular rate Rhythm: regular rhythm GI: Inspection: non-distended GI Palp: Yes Soft to palpation Skin: General skin exam: normal color Neuro: Speech: normal speech Extrem: General: normal to inspection Psych: Mental Status: mental status grossly normal Assessment and Plan Assessment and plan (1) Colon cancer: Qualifiers: Colon location: unspecified part of colon Qualified Code(s): C18.9 - Malignant neoplasm of colon, unspecified Code(s): C18.9 - Malignant neoplasm of colon, unspecified Status: Acute Assessment and Plan: colonoscopy
[2025-01-22 13:31] VITALS: BP 94/51; PULSE 62; RESP 19; O2SAT 90
[2025-01-22 13:41] VITALS: BP 101/54; PULSE 63; RESP 20; O2SAT 97
[2025-01-22 13:51] VITALS: BP 115/61; PULSE 60; RESP 20; O2SAT 95
== END 2025-01-22 14:07 | disposition home or self-care (01) ==
PROVIDERS: PCP Internal Medicine; Referring Provider Nurse Practitioner; Visit Provider Internal Medicine Gastroenterology
PROC: 0DJD8ZZ Inspection of Lower Intestinal Tract, Via Natural or Artificial Opening Endoscopic (ICD-10-PCS; CPT 45378; principal; 2025-01-22 13:30)
DX: Z12.11 Encounter for screening for malignant neoplasm of colon (principal); D12.2 Benign neoplasm of ascending colon; K64.8 Other hemorrhoids; K57.30 Diverticulosis of large intestine without perforation or abscess without bleeding; E78.5 Hyperlipidemia, unspecified; I10 Essential (primary) hypertension; F17.290 Nicotine dependence, other tobacco product, uncomplicated; Z98.890 Other specified postprocedural states; Z98.0 Intestinal bypass and anastomosis status; Z90.49 Acquired absence of other specified parts of digestive tract; Z85.038 Personal history of other malignant neoplasm of large intestine; Z80.6 Family history of leukemia; Z80.0 Family history of malignant neoplasm of digestive organs; Z82.49 Family history of ischemic heart disease and other diseases of the circulatory system
CPT/HCPCS: 45385; 88305; J2704; J7120

== ENCOUNTER 2025-04-02 08:35 | Outpatient (CLI) | payer MEDICARE, SELFPAY ==
--- OUTSIDE RECORDS SUMMARY | 2025-03-27 07:41 | XMS_ITS | Clinical Summary ---
Author Organization [facility] Address [address] [place] [address] Care Team Providers Care Supervisor Engine Repair Name Role Phone Unavailable Primary Care Provider Unavailabl e Source Comments [facility],non-owned Affiliates and Associated Physician Practices is amultiple site organization consisting of ambulatory clinics and hospital sitesin [place], [place], [place] and [place]. This disclosure is being madepursuant to the Care Everywhere program and may not contain all information available regarding this patient. Last updated 18.[facility] Allergies No known active allergies Medications * Be aware that medications may not be up to date on this document. Alwaysverify current medications with the patient. No known medications Immunizations Immunization Administration Dates Next Due INFLUENZA VACCINE, HIGH-DOSE , QUADR. (FLUZONE HIGH-DOSE QUADRIVALENT; 65Y+), 0.7 ML (HD-IIV4) 07/30/2020,08/18/2018 Social History Tobacco Use Types Packs/Day Years Used Date Smoking Tobacco: Never Assessed Sex and Gender Information Value Date Recorded Sex Assigned at Not on file Legal Sex Male 9:52 AM CDT Gender Identity Not on file Sexual Orientation [...] - 1-dose 75+ series) 2020 COVID-19 VACCINE (2023-2 5 season) 2024 DEPRESSION SCREENING 10/29/2024 INFLUENZA VACCINE (Season Ended) 2025 07/30/2020, 08/18/2018 HEPATITIS B VACCINE Aged Out No longe [...] on patient's age to complete this topic Insurance MEDICARE MEDICARE [facility] MANAGED MEDICARE ADV SELF PAY NO INSURANCE Member Subscriber Plan / Payer (Ef fective for All Dates) Name:ChakrabortyJono royal Dg Member ID:Not on file Relation to Subscriber:Not on file Name:JONO CHAKRABORTY Subscriber ID:Not on file (Home) Address: [address] [place] [address] [place] [address] Payer ID:Not on file Group ID:Not on file Type:Self Pay Address: [place], [place]
--- OUTSIDE RECORDS SUMMARY | 2025-03-27 07:41 | XMS_ITS | Encounter Summary ---
Author Organization [facility] Address [address] [facility] [place] [address] Care Team Providers Care Identity Management Developer Name Role Phone Unavailable Primary Care Provider Unavailabl e Encounter Details Date Type Department Care Team (Late st Contact Info) Description 12/14/2023 Lab Requisition [facility] - DermPath Lab [address] [facility] [place] [id number] Germania Ryan MD [address] [facility] [address] [place] [address] Social History Tobacco Use Types Packs/Day Years [...] Diagnosis Comments DERMATOPATHOLOGY Routine 12/14/2023 8:37 AM CARDROOM DRAWING RUNNER documented in this encounter Results * DERMATOPATHOLOGY (12/14/2023 8:37 AM CARDROOM DRAWING RUNNER) Case Report Dermatopathology Report Case: [id number] Authorizing Provider: Germania Ryan MD Collected: 12/14/2023 08:37 AM Ordering Location: [facility] DermPath Lab Received: 12/17/2023 11:46 AM Pathologist: Radha Simms MD Specimens: A) - Skin, right lat cheek B) - Skin, left lower burks 4 3:50 PM [facility] DERMATOPATHOLOGY LABORATORY Final Diagnosis Specimen A. SKIN, right lat cheek: BENIGN VERRUCOUS KERATOSIS (L82.1) Specimen B. SKIN, left lower burks: SEBORRHEIC KERATOSIS, IRRITATED (L82.0) 4 3:50 PM [facility] DERMATOPATHOLOGY LABORATORY at [address]NER Clinical History A-B: NMSC Irritated 4 3:50 PM [facility] DERMATOPATHOLOGY LABORATORY Gross Description Specimen [...] 8x5x1 mm. Jar 0. 4 3:50 PM [facility] DERMATOPATHOLOGY LABORATORY Microscopic Description Specimen A. SKIN, right lat cheek: Sections show hyperkeratosis, papillomatosis, hypergranulosis, and acanthosis. These histological findings can be seen in a verruca vulgaris or a seborrheic keratosis. Specimen B. SKIN, left lower burks: There is acanthosis consisting of fairly uniform squamous cells with eosinophilic cytoplasm and squamous eddies. 4 3:50 PM [facility] DERMATOPATHOLOGY LABORATORY Disclaimer An external and internal positive and negative controls are appropriate for the histochemical, immunohistochemical and immunofluorescence stain(s) in this case (if any), except where stated explicitly. The performance characteristics of the stain(s) cited in this report were developed and its performance characteristic determined by the Dermatopathology Laboratory at [facility], directed by Dr. Brendan Simms. These tests need not be, and therefore are not, approved by the [place] Food and Drug Administration. The tests are used for clinical purposes. Billing Codes Specimen Charges Stain Charges 25970 39537 1 1 4 3:50 PM [facility] DERMATOPATHOLOGY LABORATORY Embedded Images 4 3:50 PM [facility] DERMATOPATHOLOGY LABORATORY Pathology/Cytology TISSUE SPECIMEN FROM SKIN / Unknown 12/14/2023 8:37 AM CARDROOM DRAWING RUNNER 12/17/2023 11:46 AM CARDROOM DRAWING RUNNER Miscellaneous samples (specimen) TISSUE SPECIMEN FROM SKIN / Unknown 12/14/2023 8:37 AM CARDROOM DRAWING RUNNER 12/17/2023 11:46 AM CARDROOM DRAWING RUNNER Germania Ryan MD LAB - PATHOLOGY/CYTOLOGY OR DERABLES Final Result DERMATOPATHOLOGY LABORATORY [facility] - Department of Dermatology [facility] Medicine [address] [place] [address], [address] [phone] documented in this encounter Visit Diagnoses Not on filedocumented in this encounter
--- OUTSIDE RECORDS SUMMARY | 2025-03-27 07:41 | XMS_ITS | Encounter Summary ---
Author Organization [facility] Address [address] [place] [address] Phone Care Team Providers Care Hand Bookbinder Name Role Phone Darnell Palacios DO Primary Care Provider +1- [phone] Encounter Details Date Type Department Care Team (Late st Contact Info) Description 03/14/2018 Orders Only [facility] ProviderDonnie MD [address] [place] [id number] Social History Tobacco Use Types Packs/Day Years Used Date Smoking Tobacco: Former Sex and Gender Information Value Date Recorded Sex Assigned at Not on file Legal Sex Male 12:57 AM REGISTERED PHLEBOTOMIST PART TIME Gender Identity Not on file Sexual Orientation [...] COVID: Suspected 11/27/2022 11/27/2022 11/27/2022 3:36 PM REGISTERED PHLEBOTOMIST PART TIME COVID: Suspected 12/03/2023 12/03/2023 12/03/2023 4:11 PM REGISTERED PHLEBOTOMIST PART TIME COVID: Suspected 01/12/2024 01/12/2024 01/12/2024 6:16 PM CDT documented as of this encounter Care Teams Hand Bookbinder Relationship Specialty Start Date End Date Darnell Palacios DO PCP - General 07/11/17 documented as of this encounter
--- OUTSIDE RECORDS SUMMARY | 2025-03-27 07:41 | XMS_ITS | Encounter Summary ---
Author Organization [facility] Address [address] [facility] [place] [address] Care Team Providers Care Death Clearance Coordinator Name Role Phone Unavailable Primary Care Provider Unavailabl e Encounter Details Date Type Department Care Team (Late st Contact Info) Description 11/17/2020 Lab Requisition [facility] Care DermPath Lab [address] [facility] [place] [address] Rubia Amaral MD [address] [facility] [address] [place] [address] Social History Tobacco Use Types Packs/Day Years [...] Comments DERMATOPATHOLOGY Routine 11/17/2020 12:0 0 AM ORTHOTIST PROSTHETIST documented in this encounter Results * DERMATOPATHOLOGY (11/17/2020 12:00 AM ORTHOTIST PROSTHETIST) Case Report Dermatopathology Report Case: [id number] Authorizing Provider: Rubia Amaral MD Collected: 11/17/2020 12:00 AM Ordering Location: [facility] DermPath Lab Received: 11/17/2020 02:01 PM Pathologist: Diya Jaimes MD Specimen: Skin, right ala 12:09 PM [facility] DERMATOPATHOLOGY LABORATORY Final Diagnosis Specimen A. SKIN, right ala: BASAL CELL CARCINOMA, NODULAR TYPE (C44.311) 12:09 PM [facility] DERMATOPATHOLOGY LABORATORY at [address] ORTHOTIST PROSTHETIST Clinical History R/O BCC. 12:09 PM [facility] DERMATOPATHOLOGY LABORATORY Gross Description Specimen A: Received is one formalin filled container labeled with the patient's name and designated right ala. The specimen consists of a shave biopsy measuring [id number]. Jar 0. 12:09 PM [facility] DERMATOPATHOLOGY LABORATORY Microscopic Description Specimen A. SKIN, right ala: Within the dermis there are aggregates of basaloid cells with a high nuclear to cytoplasmic ratio and peripheral palisading. 12:09 PM [facility] DERMATOPATHOLOGY LABORATORY Disclaimer An external and internal positive and negative controls are appropriate for the histochemical, immunohistochemical and immunofluorescence stain(s) in this case (if any), except where stated explicitly. The performance characteristics of the stain(s) cited in this report were developed and its performance characteristic determined by the Dermatopathology Laboratory at [facility], directed by Dr. Brendan Simms. These tests need not be, and therefore are not, approved by the [place] Food and Drug Administration. The tests are used for clinical purposes. Billing Codes Specimen Charges Stain Charges 05579 1 12:09 PM [facility] DERMATOPATHOLOGY LABORATORY Embedded Images 12:09 PM [facility] DERMATOPATHOLOGY LABORATORY Pathology/Cytolog y TISSUE SPECIMEN FROM SKIN / Unknown 11/17/2020 11/17/2020 2:01 PM [facility] us Rubia Amaral MD LAB - PATHOLOGY/CYTOLOGY ORD ERABLES Final Result DERMATOPATHOLOGY LABORATORY [facility] - Department of Dermatology [address] [place] [address], [facility] [phone] documented in this encounter Visit Diagnoses Not on filedocumented in this encounter
--- OUTSIDE RECORDS SUMMARY | 2025-03-27 07:41 | XMS_ITS | Continuity of Care Document ---
Author Organization [facility] Address [address] [place] [address] Phone Care Team Providers Care Financial Aid Name Role Phone Russ OD, Omega Unavailable Unavailable Procedures Procedure Date Eye Exam & Treatment Refraction Eye Exam & Treatment Refraction Advance Directives Directive Yes / No Effective Date File Name No Information Encounters Encounter Description Practice Location Reason(s) For Visit Diagnoses Date Provider Providers Copied on Encounter [facility], [address], [place], [place], [id number], tel:[phone] [facility] No Information 7-200 9 Russ OD [facility]. [address] , [address], [place], [address], [place]. tel:[phone] [facility], [address] [place] [address] [address], [place], [place], [id number], tel:[phone] [facility] No Information 8-200 7 [place]. [address], [address], [place], [place], [id number], [place]. tel:[phone] Family History Family Member Type Diagnosis Age [...]
--- OUTSIDE RECORDS SUMMARY | 2025-03-27 07:41 | XMS_ITS | Encounter Summary ---
Author Organization [facility] Address [address] [place] [address] Care Team Providers Care Lehr Operator Name Role Phone Unavailable Primary Care Provider Unavailabl e Encounter Details Date Type Department Care Team (Late st Contact Info) Description 04/22/2020 Lab Requisition [facility] DermPath Lab [address] [place] [address] Rubia Amaral MD [address] [facility] [address] [place] [address] Social History Tobacco Use Types Packs/Day Years [...] AM CDT) Case Report Dermatopathology Report Case: [id number] Authorizing Provider: Rubia Amaral MD Collected: 04/22/2020 12:00 AM Ordering Location: [facility] DermPath Lab Received: 04/22/2020 11:38 AM Pathologist: Radha Simms MD Specimen: Skin, left arm 0 1:22 PM CDT DERMATOPATHOLOGY LABORATORY Final Diagnosis Specimen A. 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 Brendan Simms. These tests need not be, and therefore are not, approved by the [place] Food and Drug Administration. The tests are used for clinical purposes. Billing Codes Specimen Charges Stain Charges 91005 1 0 1:22 PM CDT DERMATOPATHOLOGY LABORATORY Embedded Images 0 1:22 PM CDT DERMATOPATHOLOGY LABORATORY Pathology/Cytolog y TISSUE SPECIMEN FROM SKIN / Unknown 04/22/2020 04/22/2020 11:38 AM CDT us Rubia Amaral MD LAB - PATHOLOGY/CYTOLOGY ORD ERABLES Final Result DERMATOPATHOLOGY LABORATORY [facility] - Department of Dermatology Warm In Worker [place] [address], [facility] [phone] documented in this encounter Visit Diagnoses Not on filedocumented in this encounter
--- OUTSIDE RECORDS SUMMARY | 2025-03-27 07:41 | XMS_ITS | Clinical Summary ---
Author Organization [facility] Address [address] [place] [address] Care Team Providers Care Knit Goods Washer Name Role Phone Darnell Palacios DO Primary Care Provider [phone] Allergies No known active allergies Medications tamsulosin (FLOMAX) 0.4 mg extended release capsule TK 1 C PO Q DAY 3 04/23/20 18 Active sildenafil (VIAGRA) 100 mg tablet TK 1 T PO 1 HOUR B SEXUAL ACTIVITY PRN 3 04/26/20 18 Active cholecalciferol (VITAMIN D-3) 2000 unit capsule TAKE 2,000IU ONCER PER DAY/ PT TAKING 5000IU 04/09/20 15 Active omeprazole OTC (PriLOSEC OTC) 20 mg EC tablet daily 12/18/19 07 Active loratadine (CLARITIN) 10 mg tablet Take 1 tablet (10 mg total) by mouth daily Active triamcinolone (KENALOG) 0.1 % cream APPLY TO ARMS/LEGS BID PRN 6 01/17/20 19 Active nutritional supplement-fibe r liquid Active benzonatate (TESSALON) 200 mg capsuleIndicati ons:Lower respiratory infection (e.g., bronchitis, pneumonia, pneumonitis, pulmonitis) Take 1 capsule (200 mg total) by mouth 3 (three) times a day as needed for cough 30 capsule 11/16/19 25 Active azithromycin (ZITHROMAX) 250 mg tabletIndicatio ns:Lower respiratory infection (e.g., bronchitis, pneumonia, pneumonitis, pulmonitis) Take 2 tablets the first day, then 1 tablet daily for 4 days. 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 Sleep apnea 12/31/2020 Overview (12/31/2020): Compliant with CPAP Assessment & Plan (12/31/2020 9:37 AM UNDERGRADUATE ADVISOR): The patient does have history of sleep apnea and he is compliant with the CPAP Encounter for colonoscopy due to history of colo adali polyp 08/26/2019 Overview (08/26/2019): Added automatically from request for surgery [id number] Encounter for colonoscopy du e to history of adenomatous colonic polyps 05/28/2018 Overview (05/28/2018): Added automatically from request for surgery [id number] Rectal mass 06/06/2017 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 Euvolemic upon examination. Continue HCTZ. Continue adequate blood pressure control. BMP today. Assessment & Plan (12/30/2021 8:35 AM UNDERGRADUATE ADVISOR): He has stable class 1 symptoms. Encouraged him to let us know if he notices a significant change in his activity tolerance. Blood pressure well controlled. Assessment & Plan (12/31/2020 9:37 AM UNDERGRADUATE ADVISOR): He is currently euvolemic on examination. He does not have any symptoms of heart failure. His blood pressure at home is well controlled. We asked him to continue appropriate blood pressure monitoring and remain compliant with his CPAP machine Assessment & Plan (01/02/2020 11:31 AM UNDERGRADUATE ADVISOR): He appears euvolemic on examination. He does [...] ischemia Assessment & Plan (12/31/2020 9:39 AM UNDERGRADUATE ADVISOR): The patient is fairly active and denies [...] control. Assessment & Plan (01/02/2020 11:30 AM UNDERGRADUATE ADVISOR): His dyspnea has not been problematic since [...] today. Assessment & Plan (12/30/2021 8:35 AM UNDERGRADUATE ADVISOR): His blood pressure is controlled. Continue current regimen without change. Encouraged continued exercise as he is currently doing. Assessment & Plan (12/31/2020 9:39 AM UNDERGRADUATE ADVISOR): His blood pressure is currently well controlled at home. His blood pressure is mildly elevated today. We asked him to continue to monitor at this time. In the interim, will continue amlodipine, lisinopril, hydrochlorothiazide. We will obtain a CMP to ensure that his renal function electrolytes are well controlled. Assessment & Plan (01/02/2020 11:30 AM UNDERGRADUATE ADVISOR): Reports good blood pressure control at home. [...] today. Assessment & Plan (12/30/2021 8:35 AM UNDERGRADUATE ADVISOR): Lipids checked 1 year ago at goal. Recheck today. Assessment & Plan (12/31/2020 9:38 AM UNDERGRADUATE ADVISOR): Will continue pravastatin 40 mg daily at this time. We will obtain a lipid panel to ensure that his lipids are well controlled. Assessment & Plan (01/02/2020 11:34 AM UNDERGRADUATE ADVISOR): He has had adequate control of his [...] Encounters Date Type Department Care Team Description 03/26/2025 3:24 PM CDT - 03/26/2025 11:59 PM CDT Hospital Encounter [facility] [address], [address] [place] [address] Salvador Esposito MD Spondylosis without myelopathy or radiculopathy, lumbar region (Primary Dx); Chronic bilateral low back pain without sciatica; Degeneration of intervertebral disc of lumbar region with discogenic back pain Discharge Disposition: Discharge to home or self care 02/13/2025 Telephone [facility] Cardiology [address] 8[address] [place] [address] [place] [address] Jose Armando Lemus MD from Last 3 Months Immunizations Immunization Administration [...] Nonorganic sleep disorde r - (Added by Conv) Tobacco abuse counseling Encount er for smoking cessation counseling - (Added by Conv) Personal history of other sp ecified conditions History of dizziness - (Adde d by Conv) Colon cancer (HCC) 2006 Liver metasta sis 2009 s/p chemotherapy GARCIA (obstructive sleep apnea) Hx [...] Family history of glaucoma - (Added by Conv) Cancer Other Cancer - brothe r (Added by Conv) Relation Name Status Comments Brother Gregorio [...] on file Legal Sex Male 12:57 AM UNDERGRADUATE ADVISOR Gender Identity Not on file Sexual Orientation Not on file 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 on file Not on file Not on file Obstetrics History Last Filed Vital Signs Vital Sign Reading Time Taken Comments Blood Pressure 140/69 03/26/2025 3:30 PM CDT Pulse 74 03/26/2025 3:30 PM CDT Temperature 35.6 C (96 F) 03/26/2025 3:30 PM CDT Respiratory Rate 16 03/26/2025 3:30 PM CDT Oxygen Saturation 96% 03/26/2025 3:30 PM CDT Inhaled Oxygen Concentration - - Weight 107 kg (236 lb) 03/26/2025 3:30 PM CDT Height 190.5 cm (6' 3) 03/26/2025 3:30 PM CDT Body Mass Index 29.5 03/26/2025 3:30 PM CDT Plan of Treatment Health Maintenance Due Date Last Done Comments Depression Screening 1945 Hepatitis B Screening 1963 Well Visit 65+ 2010 DTaP/Tdap/Td Vaccine (1 - Tdap) 08/25/2019 9, 08/24/2019 Pneumococcal vaccine 65+ (3 of 3 - PPSV23, PCV20 or PCV21) 10/19/2019 08/24/2019, 10/19/2009 Covid-19 Vaccine (4 - 2023-2 5 season) 2024 08/19/2021, 01/01/2021, 12/11/2020 Influenza Vaccine (Season Ended) 2025 08/13/2021, 07/30/2020, 08/10/2019, Additional history exists Fall Risk Assessment 03/26/2026 03/26/2025, 05/26/2024, 04/16/2024, Additional history exists Abdominal Aortic Aneurysm (A AA) Screen Completed [...] on stairs Contact your local community or [facility] for information on exercise, fall prevention programs, or options for improving home safety. Procedures Procedure Name Priority Date/Time Associated Diagnosis Comments COLONOSCOPY 10/01/2019 1:[address] CHEST ABDOMEN PELVIS W CONTRAST Schedule Routine, Read Routine (OP Routine) 03/17/2019 8:37 AM CDT Malignant neoplasm of cecum (HCC) from Last 3 Months or Most Recently Relevant to Health Maintenance Results * COLONOSCOPY (10/01/2019 1:29 PM UNDERGRADUATE ADVISOR) Anatomical Region Laterality Modality Other Narrative Procedure Note Homero Rider MD - 10/01/2019 1:29 PM [facility] Patient Name: Giacomo Chakraborty Procedure Date: 10/01/2019 1:29 PM Date of : 1945 Admit Type: Outpatient Age: 74 Gender: Male Attending MD: Homero Rider M.D. Room: [facility] ENDOSCOPY ROOM 9 Note Status: Finalized Procedure: [...] The scope was passed under direct vision.The [id number] endoscope was introduced throughthe anus and advanced to the ileocolonic anastomosis.The colonoscopy was performed without difficulty. The patient tolerated the procedure well. The quality of the bowel preparation was good. The quality of the bowel preparation was evaluated using the BBPS(Dobson Bowel Preparation Scale) with scores of: Right [...] my nurses in the GI office at [phone] ([phone]) for your final pathology results in 7 days. - Return to primary care physician as previously scheduled. Attending Participation: I personally performed the entire procedure. Electronically signed by Homero Rider MD Homero Rider M.D. 10/01/2019 2:00:50 PM . Number of Addenda: 0 Note Initiated On: 10/01/2019 1:29 PM Recognized by the [employer] for promoting quality [...] Recently Relevant to Health Maintenance Insurance MEDICARE [facility] MEDICARE SUPPLEMENT MEDICARE [facility] MEDICARE UHC MEDICARE ADVANTAGE Advance Directives For more information, please contact: [phone] * Full Code (Latest Code Status on File) Date Activated Date Inactivated Comments 10/01/2019 1:30 PM 10/01/2019 6:52 PM * Full Code Date Activated Date Inactivated Comments 07/19/2018 6:34 AM 07/19/2018 10:04 AM Care Teams Knit Goods Washer Relationship Specialty Start Date End Date Darnell Palacios DO PCP - General 07/11/17
--- OUTSIDE RECORDS SUMMARY | 2025-03-27 07:41 | XMS_ITS | Encounter Summary ---
Author Organization [facility] Address [address] [place] [address] Care Team Providers Care Content Checker Name Role Phone Unavailable Primary Care Provider Unavailabl e Encounter Details Date Type Department Care Team (Late st Contact Info) Description 07/15/1999 Outpatient Historical [facility] Adams Dominguez Social History Tobacco Use Types Packs/Day Years Used Date Smoking Tobacco: Never Assessed Sex and Gender Information Value Date Recorded Sex Assigned at Not on file Legal Sex Male 4:12 AM TOBACCO SAMPLER Gender Identity Not on file Sexual Orientation Not on file documented as of this encounter Plan of Treatment Not on file documented as of this encounter Visit Diagnoses Not on filedocumented in this encounter
--- OUTSIDE RECORDS SUMMARY | 2025-03-27 07:41 | XMS_ITS | Encounter Summary ---
Author Organization [facility] Address [address] [place] [address] Care Team Providers Care Music Worker Name Role Phone Unavailable Primary Care Provider Unavailabl e Encounter Details Date Type Department Care Team (Late st Contact Info) Description 05/12/2020 Lab Requisition [facility] DermPath Lab [address] [facility] [place] [address] Rubia Amaral MD [address] [facility] [address] [place] [address] Social History Tobacco Use Types Packs/Day Years [...] AM CDT) Case Report Dermatopathology Report Case: [id number] Authorizing Provider: Rubia Amaral MD Collected: 05/12/2020 12:00 AM Ordering Location: [facility] DermPath Lab Received: 05/12/2020 12:54 PM Pathologist: Diya Jaimes MD Specimen: Skin, left arm 0 1:37 PM CDT DERMATOPATHOLOGY LABORATORY Final Diagnosis Specimen A. 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 See prior biopsy [id number] 0 1:37 PM CDT DERMATOPATHOLOGY LABORATORY Gross Description Specimen A: Received is one formalin filled container labeled with the patient's name and designated left arm.The specimen consists of an ellipse measuring [id number] mm and is oriented with the suture/notch [...] to the skin surface. 0 1:37 PM T DERMATOPATHOLOGY LABORATORY Disclaimer An external and internal positive and negative controls are appropriate for the histochemical, immunohistochemical and immunofluorescence stain(s) in this case (if any), except where stated explicitly. The performance characteristics of the stain(s) cited in this report were developed and its performance characteristic determined by the Dermatopathology Laboratory at [facility], directed by Dr. Brendan Simms. These tests need not be, and therefore are not, approved by the [place] Food and Drug Administration. The tests are used for clinical purposes. Billing Codes Specimen Charges Stain Charges 52501 1 0 1:37 PM CDT DERMATOPATHOLOGY LABORATORY Embedded Images 07/16/202 0 1:37 PM CDT DERMATOPATHOLOGY LABORATORY Pathology/Cytolog y TISSUE SPECIMEN FROM SKIN / Unknown 05/12/2020 05/12/2020 12:54 PM CDT us Rubia Amaral MD LAB - PATHOLOGY/CYTOLOGY ORD ERABLES Final Result DERMATOPATHOLOGY LABORATORY [facility] - Department of Dermatology [facility]/[address] [phone] documented in this encounter Visit Diagnoses Not on filedocumented in this encounter
--- OUTSIDE RECORDS SUMMARY | 2025-03-27 07:41 | XMS_ITS | Clinical Summary ---
Author Organization [facility] Address [address] [facility] [facility] Attn: Epic Prelude ADT [place] [address] Care Team Providers Care Packaging Line Operator Name Role Phone Unavailable Primary Care Provider Unavailabl e Social History Tobacco Use Types Packs/Day Years Used Date Smoking Tobacco: Never Assessed Sex and Gender Information Value Date Recorded Sex Assigned at Not on file Legal Sex Male 4:12 AM CHIROPRACTIC ASSISTANT Gender Identity Not on file Sexual Orientation [...]
--- OUTSIDE RECORDS SUMMARY | 2025-03-27 07:41 | XMS_ITS | Encounter Summary ---
Author Organization [facility] Address [address] [place] [address] Care Team Providers Care Field Reimbursement Manager Name Role Phone Unavailable Primary Care Provider Unavailabl e Encounter Details Date Type Department Care Team (Late st Contact Info) Description 12/17/2023 Lab Requisition [facility] - DermPath Lab [address] [facility] [place] [address] Loida Roque, [address] [facility] [address] [place] [address] Social History Tobacco Use Types Packs/Day Years [...]
--- OUTSIDE RECORDS SUMMARY | 2025-03-27 07:41 | XMS_ITS | Referral Summary ---
Author Organization [facility] Address [address] [place] [address] Care Team Providers Care Rn Mobile Name Role Phone Darnell Palacios DO Primary Care Provider [phone]- [phone] Encounters Date Type Department Care Team Description 03/26/2025 3:24 PM CDT - 03/26/2025 11:59 PM CDT Hospital Encounter [facility] [address] [address], [address] [place] [id number] Salvador Esposito MD Spondylosis without myelopathy or radiculopathy, lumbar region (Primary Dx); Chronic bilateral low back pain without sciatica; Degeneration of intervertebral disc of lumbar region with discogenic back pain Discharge Disposition: Discharge to home or self care 02/13/2025 Telephone [facility] [address] [place] [address] for Advanced Medicine [address] [place] [address] [place] [address] Jose Armando Lemus MD from Last 3 Months Allergies No known [...] CPAP Assessment & Plan (12/31/2020 9:37 AM LABORATORY EQUIPMENT INSTALLER): The patient does have history of sleep apnea and he is compliant with the CPAP Encounter for colonoscopy due to history of colo adali polyp 08/26/2019 Overview (08/26/2019): Added automatically from request for surgery [id number] Encounter for colonoscopy du jose armando to history of adenomatous colonic polyps 05/28/2018 Overview (05/28/2018): Added automatically from request for surgery [id number] Rectal mass 06/06/2017 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 Euvolemic upon examination. Continue HCTZ. Continue adequate blood pressure control. BMP today. Assessment & Plan (12/30/2021 8:35 AM LABORATORY EQUIPMENT INSTALLER): He has stable class 1 symptoms. Encouraged him to let us know if he notices a significant change in his activity tolerance. Blood pressure well controlled. Assessment & Plan (12/31/2020 9:37 AM LABORATORY EQUIPMENT INSTALLER): He is currently euvolemic on examination. He does not have any symptoms of heart failure. His blood pressure at home is well controlled. We asked him to continue appropriate blood pressure monitoring and remain compliant with his CPAP machine Assessment & Plan (01/02/2020 11:31 AM LABORATORY EQUIPMENT INSTALLER): He appears euvolemic on examination. He [...] ischemia Assessment & Plan (12/31/2020 9:39 AM LABORATORY EQUIPMENT INSTALLER): The patient is fairly active and [...] control. Assessment & Plan (01/02/2020 11:30 AM LABORATORY EQUIPMENT INSTALLER): His dyspnea has not been problematic [...] today. Assessment & Plan (12/30/2021 8:35 AM LABORATORY EQUIPMENT INSTALLER): His blood pressure is controlled. Continue current regimen without change. Encouraged continued exercise as he is currently doing. Assessment & Plan (12/31/2020 9:39 AM LABORATORY EQUIPMENT INSTALLER): His blood pressure is currently well controlled at home. His blood pressure is mildly elevated today. We asked him to continue to monitor at this time. In the interim, will continue amlodipine, lisinopril, hydrochlorothiazide. We will obtain a CMP to ensure that his renal function electrolytes are well controlled. Assessment & Plan (01/02/2020 11:30 AM LABORATORY EQUIPMENT INSTALLER): Reports good blood pressure control at [...] today. Assessment & Plan (12/30/2021 8:35 AM LABORATORY EQUIPMENT INSTALLER): Lipids checked 1 year ago at goal. Recheck today. Assessment & Plan (12/31/2020 9:38 AM LABORATORY EQUIPMENT INSTALLER): Will continue pravastatin 40 mg daily at this time. We will obtain a lipid panel to ensure that his lipids are well controlled. 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 Not on file Not [...] 03/26/2025 3:30 PM CDT Plan of Treatment Not on file Goals [...] Associated Diagnosis Comments COLONOSCOPY 10/01/2019 1:[address]QUIPMENT IN[address] CHEST ABDOMEN PELVIS W CONTRAST Schedule Routine, Read Routine (OP Routine) 03/17/2019 8:37 AM CDT Malignant neoplasm of cecum (HCC) from Last 3 Months or Most Recently Relevant to Health Maintenance Results * COLONOSCOPY (10/01/2019 1:29 PM LABORATORY EQUIPMENT INSTALLER) Anatomical Region Laterality Modality Other Narrative Procedure Note Homero Rider MD - 10/01/2019 1:29 PM [facility] Patient Name: Giacomo Chakraborty Procedure Date: 10/01/2019 1:29 PM Date of : 1945 Admit Type: Outpatient Age: 74 Gender: Male Attending MD: Homero Rider M.D. Room: [facility] ENDOSCOPY ROOM 9 Note Status: Finalized Procedure: [...] The scope was passed under direct vision.The [id number] endoscope was introduced throughthe anus and advanced to the ileocolonic anastomosis.The colonoscopy was performed without difficulty. The patient tolerated the procedure well. The quality of the bowel preparation was good. The quality of the bowel preparation was evaluated using the BBPS(Otis Bowel Preparation Scale) with scores of: Right [...] my nurses in the GI office at [phone] ([phone]) for your final pathology results in 7 days. - Return to primary care physician as previously scheduled. Attending Participation: I personally performed the entire procedure. Electronically signed by Homero Rider MD Homero Rider M.D. 10/01/2019 2:00:50 PM . Number of Addenda: 0 Note Initiated On: 10/01/2019 1:29 PM Recognized by the [employer] for promoting quality [...] by: Juan Albrecht M.D. Marc Estrella MD [facility] [place] PROCEDURES Final Resul t from Last 3 Months or Most Recently Relevant to Health Maintenance Insurance MEDICARE [facility] MEDICARE SUPPLEMENT MEDIC[facility] MEDICARE [facility] Address: [address] [address] [place] [address] [facility] MEDICARE ADVANTAGE Advance Directives For more information, please contact: [phone] * Full Code (Latest Code Status on File) Date Activated Date Inactivated Comments 10/01/2019 1:30 PM 10/01/2019 6:52 PM * Full Code Date Activated Date Inactivated Comments 07/19/2018 6:34 AM 07/19/2018 10:04 AM Care Teams Rn Mobile Relationship Specialty Start Date End Date Darnell Palacios DO PCP - General 07/11/17
--- OUTSIDE RECORDS SUMMARY | 2025-03-27 07:41 | XMS_ITS ---
Author Organization [facility] Address [address] [place] [address] Care Team Providers Care Retail Operations Specialist Name Role Phone Darnell Palacios DO Primary Care Provider [phone]- [phone] Active Problems Problem Noted Date Diagnosed Date Spondylosis of lumbar region without myelopathy or radiculopathy 05/26/2024 Sleep apnea 12/31/2020 Overview (12/31/2020): Compliant with CPAP Assessment & Plan (12/31/2020 9:37 AM ANNEALER HELPER): The patient does have history of sleep apnea and he is compliant with the CPAP Encounter for colonoscopy due to history of colo adali polyp 08/26/2019 Overview (08/26/2019): Added automatically from request for surgery [id number] Encounter for colonoscopy du e to history of adenomatous colonic polyps 05/28/2018 Overview (05/28/2018): Added automatically from request for surgery [id number] Rectal mass 06/06/2017 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 Euvolemic upon examination. Continue HCTZ. Continue adequate blood pressure control. BMP today. Assessment & Plan (12/30/2021 8:35 AM ANNEALER HELPER): He has stable class 1 symptoms. Encouraged him to let us know if he notices a significant change in his activity tolerance. Blood pressure well controlled. Assessment & Plan (12/31/2020 9:37 AM ANNEALER HELPER): He is currently euvolemic on examination. He does not have any symptoms of heart failure. His blood pressure at home is well controlled. We asked him to continue appropriate blood pressure monitoring and remain compliant with his CPAP machine Assessment & Plan (01/02/2020 11:31 AM ANNEALER HELPER): He appears euvolemic on examination. He does [...] ischemia Assessment & Plan (12/31/2020 9:39 AM ANNEALER HELPER): The patient is fairly active and denies [...] control. Assessment & Plan (01/02/2020 11:30 AM ANNEALER HELPER): His dyspnea has not been problematic since [...] today. Assessment & Plan (12/30/2021 8:35 AM ANNEALER HELPER): His blood pressure is controlled. Continue current regimen without change. Encouraged continued exercise as he is currently doing. Assessment & Plan (12/31/2020 9:39 AM ANNEALER HELPER): His blood pressure is currently well controlled at home. His blood pressure is mildly elevated today. We asked him to continue to monitor at this time. In the interim, will continue amlodipine, lisinopril, hydrochlorothiazide. We will obtain a CMP to ensure that his renal function electrolytes are well controlled. Assessment & Plan (01/02/2020 11:30 AM ANNEALER HELPER): Reports good blood pressure control at home. [...] today. Assessment & Plan (12/30/2021 8:35 AM ANNEALER HELPER): Lipids checked 1 year ago at goal. Recheck today. Assessment & Plan (12/31/2020 9:38 AM ANNEALER HELPER): Will continue pravastatin 40 mg daily at this time. We will obtain a lipid panel to ensure that his lipids are well controlled. Assessment & Plan (01/02/2020 11:34 AM ANNEALER HELPER): He has had adequate control of his [...]
--- OUTSIDE RECORDS SUMMARY | 2025-03-27 07:41 | XMS_ITS | Encounter Summary ---
Author Organization [facility] Healthcare Address [address] [place] [address] Care Team Providers Care Coupon Manifest Clerk Name Role Phone Darnell Palacios DO Primary Care Provider [phone] Reason for Referral * Diagnostic Imaging (Routine) - Pending Review Specialty Diagnoses / Procedures Referred By Contac t Referred To Contact Diagnoses Spondylosis without myelopathy or radiculopathy, lumbar region Procedures Imaging Lumbar/Sacral Facet Medial Branch Block Bilateral (89390) Salvador Esposito MD [address] [place] [address] Phone: tel: fax: [facility] [address] [place] [address] Referral ID Status Reason Start Date Expiration Date V isits Requested Visits Authorized [id number] Pending Review 03/26/2025 04/25/2026 1 1 Reason for Visit * Reason Comments Follow-up Encounter Details Date Type Department Care Team (Latest Contact Info) Description 03/26/2025 3:24 PM CDT - 03/26/2025 11:59 PM CDT Hospital Encounter [facility] [address], [address] [place] [address] Salvador Esposito MD [address] [place] [address] Spondylosis without myelopathy or radiculopathy, lumbar region (Primary Dx); Chronic bilateral low back pain without sciatica; Degeneration of intervertebral disc of lumbar region with discogenic back pain Discharge Disposition: Discharge to home or self care Social History Tobacco Use Types Packs/Day Years [...] on file 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 Gender Identity Not on file Sexual Orientation Not on file 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 When submitting a refill request, please note the following guidelines: Federal guidelines recommend patients with chronic pain, for whom opioid medications are prescribed, be evaluated at least once every two-three months.The [facility] adheres to these guidelines and patients should plan to be seen at least every two-three months (or more frequently, as deemed appropriate by the prescribing provider). To allow timely scheduling of evaluations, please contact the office to schedule your appointment 6-8 weeks in advance. For all opioid/narcotic prescription refills, please contact the [facility] at least 7 days prior to the date of need. Call [phone] choose option #5 and leave the following information: Name, date of , and phone number Name(s) of the medication(s) needing refill Name and number for the pharmacy where the refill(s) should be sent All non-opioid/non-narcotic refill requests should be submitted directly to the pharmacy. The pharmacy will then contact the [facility] with the necessary information. For any questions about your visit or your procedure, please call the Pain Management Center [phone] (Sunday-Sunday 7:30 am - 4:00 pm). Please leave a message on the Nurse Line for ALL Non Urgent matters (option #5). If you have an urgent matter during normal business hours please choose option #4 for current patients. If you need urgent attention after 4 pm, on the weekends, or a holiday that can not wait until the office opens: Please call 911 or go to the nearest Emergency Room. documented in this encounter Medications at Time of Discharge azithromycin (ZITHROMAX) 250 mg tabletIndications :Lower respiratory infection (e.g., bronchitis, pneumonia, pneumonitis, pulmonitis) Take 2 tablets the first day, then 1 tablet daily for 4 days. 6 tablet 11/16/2024 benzonatate (TESSALON) 200 mg capsuleIndication s:Lower respiratory infection (e.g., bronchitis, pneumonia, pneumonitis, pulmonitis) Take 1 capsule (200 mg total) by mouth 3 (three) times a day as needed for cough 30 capsule 11/16/2024 cholecalciferol (VITAMIN D-3) 2000 unit capsule TAKE 2,000IU ONCER PER DAY/ PT TAKING 5000IU 04/09/2015 hydroCHLOROthiazi de (MICROZIDE) 12.5 mg capsule TAKE 1 CAPSULE(12.5 MG) BY MOUTH DAILY 90 capsule 1 03/05/2025 lisinopriL (PRINIVIL,ZESTRIL ) 5 mg tablet Take 1 tablet (5 mg total) by mouth daily 90 tablet 3 02/24/2025 loratadine (CLARITIN) 10 mg tablet Take 1 tablet (10 mg total) by mouth daily nutritional supplement-fiber liquid omeprazole OTC (PriLOSEC OTC) 20 mg EC tablet daily 12/18/2006 pravastatin (PRAVACHOL) 40 mg tablet Take 1 tablet (40 mg total) by mouth daily 90 tablet 3 02/13/2025 sildenafil (VIAGRA) 100 mg tablet TK 1 T PO 1 HOUR B SEXUAL ACTIVITY PRN 3 04/26/2018 tamsulosin (FLOMAX) 0.4 mg extended release capsule TK 1 C PO Q DAY 3 04/23/2018 triamcinolone (KENALOG) 0.1 % cream APPLY TO ARMS/LEGS BID PRN 6 01/16/2019 documented as of this encounter Discharge Disposition Disposition Code Departure Means Destination Discharge to home or self care documented in this encounter Progress Notes * Salvador Esposito MD - 03/26/2025 4:00 PM CDT Pain Service Progress Note Patient Name: Jono Fischer : 1945 Today's Date: 03/26/2025 PCP: Darnell Palacios DO Referring: Darnell Palacios DO Today 03/26/2025 Chief complaint of Chief Complaint Patient presents with Follow-up Interval History: Jono Fischer is a 80 y.o. male who returns for follow up and re-evaluation after having last been evaluated in April 2024. The patient underwent bilateral lumbar medial branch block at that time.He had excellent relief with greater than 80% relief of his axial low back pain for over 4 months. His pain has slowly returned back to baseline levels. He reports increased pain with standing and walking and relief with sitting. He is here to discuss further therapeutic options. ROS:Review of Systems Review of Systems Constitutional: Negative for chills, diaphoresis, fever and weight loss. HENT: Negative for ear pain, hearing loss, sore throat and tinnitus. Eyes: Negative for blurred vision, double vision and pain. Respiratory: Negative for cough and stridor. Cardiovascular: Negative for chest pain and leg swelling. Gastrointestinal: Negative for abdominal pain, diarrhea, heartburn, nausea and vomiting. Genitourinary: Negative for dysuria. Musculoskeletal: back pain. Skin: Negative for itching and rash. Neurological: Negative for dizziness, tremors, sensory change, seizures, loss of consciousness and headaches. Endo/Heme/Allergies: Negative. Psychiatric/Behavioral: Negative for depression, hallucinations, memory loss and suicidal ideas. 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 - (Added by TW Conv) Tobacco abuse counseling Encounter for smoking cessation counseling - (Added by TW Conv) Past Surgical History: Procedure Laterality Date CATARACT EXTRACTION 2012 CATARACT EXTRACTION EXTRACAPSULAR W/ INTRAOCULAR LENS IMPLANTATION Right 2014 COLON POLYPECTOMY COLON SURGERY 2010 COLONOSCOPY EXCISION / REPAIR HYDROCELE PEDIATRIC LIVER RESECTION 2009 RIGHT COLECTOMY 2007 VASECTOMY 1984 (Not in a hospital admission) No Known Allergies Social History Tobacco Use Smoking status: Former Current packs/day: 0.00 Average packs/day: 0.1 packs/day for 11.0 years (0.6 ttl pk-yrs) Types: Pipe, Cigars, Cigarettes Start date: 10/01/1986 Quit date: 10/01/1997 Years since quittin.5 Smokeless tobacco: Never Tobacco comments: cigar 1x/week Substance and Sexual Activity Drug use: Never Sexual activity: Yes Partners: Female control/protection: Surgical Alcohol Use: Not At Risk (04/16/2024) AUDIT-C Frequency of Alcohol Consumption: Never Average Number of Drinks: Patient does not drink Frequency of Binge Drinking: Never Family History Problem Relation Age of Onset Cancer Mother Glaucoma Mother Family history of glaucoma - (Added by TW Conv) Heart disease Father Coronary artery disease Father Cancer Brother Cancer Other Cancer - brother (Added by TW Conv) Cancer Daughter Reviewed. Patient Active Problem List Diagnosis Malignant neoplasm of cecum (HCC) Encounter for colonoscopy due to history of adenomatous colonic polyps Dyspnea Diastolic dysfunction Essential hypertension Other hyperlipidemia Obesity Encounter for colonoscopy due to history of colonic polyp Sleep apnea Current smoker Rectal mass Secondary adenocarcinoma of liver (HCC) Spondylosis of lumbar region without myelopathy or radiculopathy Patient's Medications New Prescriptions No medications on file Previous Medications AZITHROMYCIN (ZITHROMAX) 250 MG TABLET Take 2 tablets the first day, then 1 tablet daily for 4 days. Authorizing Provider: Therese Cerna NP Notes: -- BENZONATATE (TESSALON) 200 MG CAPSULE Take 1 capsule (200 mg total) by mouth 3 (three) times a day as needed for cough Authorizing Provider: Therese Cerna NP Notes: -- CHOLECALCIFEROL (VITAMIN D-3) 2000 UNIT CAPSULE TAKE 2,000IU ONCER PER DAY/ PT TAKING 5000IU Authorizing Provider: Donnie Faustin MD Notes: -- HYDROCHLOROTHIAZIDE (MICROZIDE) 12.5 MG CAPSULE TAKE 1 CAPSULE(12.5 MG) BY MOUTH DAILY Authorizing Provider: Jose Armando Lemus MD Notes: -- LISINOPRIL (PRINIVIL,ZESTRIL) 5 MG TABLET Take 1 tablet (5 mg total) by mouth daily Authorizing Provider: Jose Armando Lemus MD Notes: -- LORATADINE (CLARITIN) 10 MG TABLET Take 1 tablet (10 mg total) by mouth daily Authorizing Provider: Donnie Faustin MD Notes: -- NUTRITIONAL SUPPLEMENT-FIBER LIQUID Authorizing Provider: Donnie Faustin MD Notes: -- OMEPRAZOLE OTC (PRILOSEC OTC) 20 MG EC TABLET daily Authorizing Provider: Donnie Faustin MD Notes: -- PRAVASTATIN (PRAVACHOL) 40 MG TABLET Take 1 tablet (40 mg total) by mouth daily Authorizing Provider: Jose Armando Lemus MD Notes: -- SILDENAFIL (VIAGRA) 100 MG TABLET TK 1 T PO 1 HOUR B SEXUAL ACTIVITY PRN Authorizing Provider: Donnie Faustin MD Notes: -- TAMSULOSIN (FLOMAX) 0.4 MG EXTENDED RELEASE CAPSULE TK 1 C PO Q DAY Authorizing Provider: Donnie Faustin MD Notes: -- TRIAMCINOLONE (KENALOG) 0.1 % CREAM APPLY TO ARMS/LEGS BID PRN Authorizing Provider: Donnie Faustin MD Notes: -- Modified Medications No medications on file Discontinued Medications No medications on file Objective Vitals: Most Recent : Vitals BP 140/69 Pulse 74 Temp (!) 96 ??F (35.6 ??C) Resp 16 Ht 190.5 cm (6' 3) Wt 107 kg (236 lb) SpO2 96% BMI 29.50 kg/m?? Physical Exam: Physical Exam Physical Exam GENERAL: Well-appearing, no apparent distress, appears stated age. NEURO: Alert & oriented x3, no focal sensory or motor deficits notable on general observation. MSK: Gait: Normal L-spine: limited and decreased ROM in flexion, extension, and rotation of torso, +bilateral paraspinal tenderness without gross physical deformities. Positive facet loading test with extension and rotation of the back from standing position. HEENT: Atraumatic, normocephalic, EOMI, non-icteric sclera, wearing a mask. CARDIOVASCULAR: Well-perfused extremities. RESPIRATORY: Non-labored breathing. ABDOMINAL: No masses. PYSCH: Pleasant, normal affect, euthymic mood. SKIN: Overall warm and dry. Psychiatric: Mood and affect normal. Nursing note and vitals reviewed. Lab/Radiology/Diagnostic Review: Imaging Lumbar/Sacral Facet Medial Branch Block Bilateral (42588) The images from this study are not interpreted by Radiology. Please refer to the physician's procedure / OR operative note. Assessment: Encounter Diagnoses Name Primary? Spondylosis without myelopathy or radiculopathy, lumbar region Yes Chronic bilateral low back pain without sciatica Degeneration of intervertebral disc of lumbar region with discogenic back pain The above note documents my personal evaluation of this patient. In addition, I have reviewed and confirmed with the patient and nurse the supportive information documented in today's scanned PatientHealth Questionnaire and Office Note. Plan: The patient presents with chronic axial low back pain for over 2 years. His current pain score is 7/10. He has failed conservative efforts with oral medications and physical therapy. He did report relief with the lumbar medial branch block from last year greater than 80% for over 4 months. We will schedule him to return for repeat lumbar medial branch blocks targeting L4/5 and L5-S1. If he continues to demonstrate positive relief we will likely move forward with radiofrequency ablation for prolonged relief. 2. Follow-up: Schedule patient for bilateral L4-S1 medial branch block Salvador Esposito MD 03/26/2025 11:38 PM documented in this encounter Miscellaneous Notes * Perioperative Nursing Note - Marbella Courtney RN - 03/26/2025 4:00 PM CDT Escorted patient to exam room. Obtained vital signs. Reviewed patient's allergies and current medications. Obtained and verified patient's simple medical/surgical history. Confirmed the reason for visit with the patient. Obtained the following screening assessments: [x] Modified Oswestry Low Back Pain Questionnaire [] PMC Intake Questionnaire [x] PMC Follow up Questionnaire [x] Fall Risk Assessment (Radha Smith Steadi) [x] Depression/Anxiety Assessment (GAD7, PHQ-9, Frederick Suicide, Jones Depression) [] Disability Scale [] CAGE [] SOAPP-R Additional tasks included: [] Random medication adherence check (pill verification by two nurses) [] Work/school note written [] Pended CT/MRI/MRA order [] Pain assessment for multiple sites [] Vital Signs Temp: (!) 96 ??F (35.6 ??C) Pulse: 74 Resp: 16 BP: 140/69 SpO2: 96 % Post-visit transport confirmed with the patient. Total time spent for patient care, education, and care coordination was approximately 11-20 minutes. documented in this encounter Plan of Treatment Scheduled Orders Name Type Priority Associated Diagnoses Orde r Schedule Imaging Lumbar/Sacral Facet Medial Branch Block Bilateral ([id number]) Imaging Schedule Routine, Read Routine (OP Routine) Spondylosis without myelopathy or radiculopathy, lumbar region Expected: 03/26/2025, Expires: 03/26/2026 documented as of this encounter Goals Goal Patient Goal Type Associated Problems [...] programs, or options for improving home safety. documented as of this encounter Visit Diagnoses Diagnosis Spondylosis without myelopathy or radiculopathy, lumbar region- Primary Chronic bilateral low back pain without sciatica Degeneration of intervertebral disc of lumbar region with discogenic back pain documented in this encounter Care Teams Coupon Manifest Clerk Relationship Specialty Start Date End Date Darnell Palacios DO PCP - General 07/11/17 documented as of this encounter
--- OUTSIDE RECORDS SUMMARY | 2025-04-02 08:49 | XMS_ITS | Clinical Summary ---
Author Organization [facility] Address [address] [place] [address] Care Team Providers Care Chief Bank Examiner Name Role Phone Unavailable Primary Care Provider Unavailabl e Source Comments [facility],non-owned Affiliates and Associated Physician Practices is amultiple site organization consisting of ambulatory clinics and hospital sitesin [place], [place], [place] and [place]. This disclosure is being madepursuant to the Care Everywhere program and may not contain all information available regarding this patient. Last updated 18.[facility] Allergies No known active allergies Medications * [...] complete this topic Insurance MEDICARE MEDICARE [facility] MANAGED MEDICARE ADV SELF PAY NO INSURANCE Member Subscriber Plan / Payer (Ef fective for All Dates) Name:ChakrabortyJono royal Dg Member ID:Not on file Relation to Subscriber:Not on file Name:JONO CHAKRABORTY Subscriber ID:Not on file (Home) Address: [address] [place] [address] [place] [address] Payer ID:Not on file Group ID:Not on file Type:Self Pay Address: [place], [place]
--- OUTSIDE RECORDS SUMMARY | 2025-04-02 08:49 | XMS_ITS | Encounter Summary ---
Author Organization [facility] Health Address [address] [place] [address] Care Team Providers Care Medical Records Tech Name Role Phone Unavailable Primary Care Provider Unavailabl e Encounter Details Date Type Department Care Team (Late st Contact Info) Description 12/17/2023 Lab Requisition [facility] - [facility] Lab [address] [facility] [facility] [place] [id number] Loida Roque, [address] [facility] [address] [place] [address] Social History Tobacco Use Types Packs/Day Years [...]
--- OUTSIDE RECORDS SUMMARY | 2025-04-02 08:49 | XMS_ITS | Continuity of Care Document ---
Author Organization [facility] Address [address] [place] [address] Phone Care Team Providers Care Programmer Numerical Control Name Role Phone Russ OD, Omega Unavailable Unavailable Procedures Procedure Date Eye Exam & Treatment Refraction Eye Exam & Treatment Refraction Advance Directives Directive Yes / No Effective Date File Name No Information Encounters Encounter Description Practice Location Reason(s) For Visit Diagnoses Date Provider Providers Copied on Encounter [facility], [address], [place], [place], [id number], tel:[phone] [facility] No Information 7-200 9 Russ OD [place]. [address] , [address], [place], [address], [place]. tel:[phone] [facility], [address] [place] [address] [address], [place], [place], [id number], tel:[phone] [facility] No Information 8-200 7 [place]. [address], [address], [place], [place], [id number], [place]. tel:[phone] Family History Family Member Type Diagnosis Age At Onset No Information Payers Payer name Insurance type Covered democrat ID Authoriza tion(s) No Information Social History [...]
--- OUTSIDE RECORDS SUMMARY | 2025-04-02 08:49 | XMS_ITS | Encounter Summary ---
Author Organization [facility] Address [address] [place] [address] Care Team Providers Care Monument Setter Helper Name Role Phone Unavailable Primary Care Provider Unavailabl e Encounter Details Date Type Department Care Team (Late st Contact Info) Description 04/22/2020 Lab Requisition [facility] [address] [facility] [place] [address] Rubia Amaral MD [address] [facility] [address] [place] [address] Social History Tobacco Use Types Packs/Day Years [...] AM CDT) Case Report Dermatopathology Report Case: [id number] Authorizing Provider: Rubia Amaral MD Collected: 04/22/2020 12:00 AM Ordering Location: [facility] Received: 04/22/2020 11:38 AM Pathologist: [...] characteristic determined by the Dermatopathology Laboratory at [facility], directed by Dr. Brendan Simms. These tests need not be, and therefore are not, approved by the [place] Food and Drug Administration. The tests are used for clinical purposes. Billing Codes Specimen Charges Stain Charges 62131 1 0 1:22 PM CDT DERMATOPATHOLOGY LABORATORY Embedded Images 0 1:22 PM CDT DERMATOPATHOLOGY LABORATORY Pathology/Cytolog y TISSUE SPECIMEN FROM SKIN / Unknown 04/22/2020 04/22/2020 11:38 AM CDT us Rubia Amaral MD LAB - PATHOLOGY/CYTOLOGY ORD ERABLES Final Result DERMATOPATHOLOGY LABORATORY [facility] - Department of Dermatology Political Science Faculty [place] [address], [facility] [phone] documented in this encounter Visit Diagnoses Not on filedocumented in this encounter
--- OUTSIDE RECORDS SUMMARY | 2025-04-02 08:49 | XMS_ITS | Clinical Summary ---
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
--- OUTSIDE RECORDS SUMMARY | 2025-04-02 08:49 | XMS_ITS | Clinical Summary ---
Author Organization [facility] Address [address] [place] [address] Care Team Providers Care C D Still Operator Name Role Phone Darnell Palacios DO Primary Care Provider +1- [phone] Allergies No known active allergies Medications tamsulosin [...] CPAP Assessment & Plan (12/31/2020 9:37 AM MILLING MACHINE SET UP OPERATOR): The patient does have history of sleep apnea and he is compliant with the CPAP Encounter for colonoscopy due to history of colo adali polyp 08/26/2019 Overview (08/26/2019): Added automatically from request for surgery [id number] Encounter for colonoscopy du e to history of adenomatous colonic polyps 05/28/2018 Overview (05/28/2018): Added automatically from request for surgery [id number] Rectal mass 06/06/2017 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 Euvolemic upon examination. Continue HCTZ. Continue adequate blood pressure control. BMP today. Assessment & Plan (12/30/2021 8:35 AM MILLING MACHINE SET UP OPERATOR): He has stable class 1 symptoms. Encouraged him to let us know if he notices a significant change in his activity tolerance. Blood pressure well controlled. Assessment & Plan (12/31/2020 9:37 AM MILLING MACHINE SET UP OPERATOR): He is currently euvolemic on examination. He does not have any symptoms of heart failure. His blood pressure at home is well controlled. We asked him to continue appropriate blood pressure monitoring and remain compliant with his CPAP machine Assessment & Plan (01/02/2020 11:31 AM MILLING MACHINE SET UP OPERATOR): He appears euvolemic on examination. He does [...] ischemia Assessment & Plan (12/31/2020 9:39 AM MILLING MACHINE SET UP OPERATOR): The patient is fairly active and denies [...] control. Assessment & Plan (01/02/2020 11:30 AM MILLING MACHINE SET UP OPERATOR): His dyspnea has not been problematic since [...] today. Assessment & Plan (12/30/2021 8:35 AM MILLING MACHINE SET UP OPERATOR): His blood pressure is controlled. Continue current regimen without change. Encouraged continued exercise as he is currently doing. Assessment & Plan (12/31/2020 9:39 AM MILLING MACHINE SET UP OPERATOR): His blood pressure is currently well controlled at home. His blood pressure is mildly elevated today. We asked him to continue to monitor at this time. In the interim, will continue amlodipine, lisinopril, hydrochlorothiazide. We will obtain a CMP to ensure that his renal function electrolytes are well controlled. Assessment & Plan (01/02/2020 11:30 AM MILLING MACHINE SET UP OPERATOR): Reports good blood pressure control at home. [...] today. Assessment & Plan (12/30/2021 8:35 AM MILLING MACHINE SET UP OPERATOR): Lipids checked 1 year ago at goal. Recheck today. Assessment & Plan (12/31/2020 9:38 AM MILLING MACHINE SET UP OPERATOR): Will continue pravastatin 40 mg daily at this time. We will obtain a lipid panel to ensure that his lipids are well controlled. Assessment & Plan (01/02/2020 11:34 AM MILLING MACHINE SET UP OPERATOR): He has had adequate control of his [...] CDT Hospital Encounter [facility] [address] [facility] [address], [address] [place] [address] Salvador Esposito MD Spondylosis without myelopathy or radiculopathy, lumbar region (Primary Dx); Chronic bilateral low back pain without sciatica; Degeneration of intervertebral disc of lumbar region with discogenic back pain Discharge Disposition: Discharge to home or self care 02/13/2025 Telephone [facility] [address] 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 Procedures Procedure Name Priority Date/Time Associated Diagnosis Comments COLONOSCOPY 10/01/2019 1:29 PM MILLING MACHINE SET UP OPERATOR CT CHEST ABDOMEN PELVIS W CONTRAST Schedule Routine, Read Routine (OP Routine) 03/17/2019 8:37 AM CDT Malignant neoplasm of cecum (HCC) from Last 3 Months or Most Recently Relevant to Health Maintenance Results * COLONOSCOPY (10/01/2019 1:29 PM MILLING MACHINE SET UP OPERATOR) Anatomical Region Laterality Modality Other Narrative Procedure Note Homero Rider MD - 10/01/2019 1:29 PM [facility] Patient Name: Giacomo Chakraborty Procedure Date: 10/01/2019 1:29 PM Date of : 1945 Admit Type: Outpatient Age: 74 Gender: Male Attending MD: Homero Rider M.D. Room: [facility] ENDOSCOPY ROOM 9 Note Status: [...] The scope was passed under direct vision.The [id number] endoscope was introduced throughthe anus and advanced to the ileocolonic anastomosis.The colonoscopy was performed without difficulty. The patient tolerated the procedure well. The quality of the bowel preparation was good. The quality of the bowel preparation was evaluated using the BBPS(Sears Bowel Preparation Scale) with scores of: Right [...] my nurses in the GI office at [phone] ([phone]) for your final pathology results in 7 days. - Return to primary care physician as previously scheduled. Attending Participation: I personally performed the entire procedure. Electronically signed by Homero Rider MD Homero Rider M.D. 10/01/2019 2:00:50 PM . Number of Addenda: 0 Note Initiated On: 10/01/2019 1:29 PM Recognized by the [employer] for promoting quality [...] Recently Relevant to Health Maintenance Insurance MEDICARE [facility] MEDICARE SUPPLEMENT MEDICARE [facility] MEDICARE UHC MEDICARE ADVANTAGE Advance Directives For more information, please contact: [phone] * Full Code (Latest Code Status on File) Date Activated Date Inactivated Comments 10/01/2019 1:30 PM 10/01/2019 6:52 PM * Full Code Date Activated Date Inactivated Comments 07/19/2018 6:34 AM 07/19/2018 10:04 AM Care Teams C D Still Operator Relationship Specialty Start Date End Date Darnell Palacios DO PCP - General 07/11/17
--- OUTSIDE RECORDS SUMMARY | 2025-04-02 08:49 | XMS_ITS | Encounter Summary ---
Author Organization [facility] Address [address] [facility] [place] [address] Care Team Providers Care Optical Instrument Assembly Supervisor Name Role Phone Unavailable Primary Care Provider Unavailabl e Encounter Details Date Type Department Care Team (Late st Contact Info) Description 11/17/2020 Lab Requisition [facility] Care DermPath Lab [address] [facility] [place] [address] Rubia Amaral MD [address] [facility] 3 [place] [address] Social History Tobacco Use Types Packs/Day Years [...] Comments DERMATOPATHOLOGY Routine 11/17/2020 12:0 0 AM INFORMATICS EDUCATOR documented in this encounter Results * DERMATOPATHOLOGY (11/17/2020 12:00 AM INFORMATICS EDUCATOR) Case Report Dermatopathology Report Case: [id number] Authorizing Provider: Rubia Amaral MD Collected: 11/17/2020 12:00 AM Ordering Location: [facility] D[facility] Lab Received: 11/17/2020 02:01 PM Pathologist: Diya Jaimes MD Specimen: Skin, right ala 12:09 PM [facility] DERMATOPATHOLOGY LABORATORY Final Diagnosis Specimen A. SKIN, right ala: BASAL CELL CARCINOMA, NODULAR TYPE (C44.311) 12:09 PM [facility] DERMATOPATHOLOGY LABORATORY at 1209 INFORMATICS EDUCATOR Clinical History R/O BCC. 12:09 PM [facility] DERMATOPATHOLOGY LABORATORY Gross Description Specimen A: Received is one formalin filled container labeled with the patient's name and designated right ala. The specimen consists of a shave biopsy measuring [id number]. Jar 0. 12:09 PM [facility] DERMATOPATHOLOGY LABORATORY Microscopic Description Specimen A. SKIN, right ala: Within the dermis there are aggregates of basaloid cells with a high nuclear to cytoplasmic ratio and peripheral palisading. 12:09 PM [facility] DERMATOPATHOLOGY LABORATORY Disclaimer An external and internal positive and negative controls are appropriate for the histochemical, immunohistochemical and immunofluorescence stain(s) in this case (if any), except where stated explicitly. The performance characteristics of the stain(s) cited in this report were developed and its performance characteristic determined by the Dermatopathology Laboratory at [facility], directed by Dr. Brendan Simms. These tests need not be, and therefore are not, approved by the [place] Food and Drug Administration. The tests are used for clinical purposes. Billing Codes Specimen Charges Stain Charges 77298 1 12:09 PM [facility] DERMATOPATHOLOGY LABORATORY Embedded Images 12:09 PM [facility] DERMATOPATHOLOGY LABORATORY Pathology/Cytolog y TISSUE SPECIMEN FROM SKIN / Unknown 11/17/2020 11/17/2020 2:01 PM [facility] us Rubia Amaral MD LAB - PATHOLOGY/CYTOLOGY ORD ERABLES Final Result DERMATOPATHOLOGY LABORATORY [facility] - Department of Dermatology [address] [place] [address], [facility] [phone] documented in this encounter Visit Diagnoses Not on filedocumented in this encounter
--- OUTSIDE RECORDS SUMMARY | 2025-04-02 08:49 | XMS_ITS | Encounter Summary ---
Author Organization [facility] Address [address] [place] [address] Care Team Providers Care Promotional Demonstrator Name Role Phone Unavailable Primary Care Provider Unavailabl e Encounter Details Date Type Department Care Team (Late st Contact Info) Description 07/15/1999 Outpatient Historical [facility] Dominguez Social History Tobacco Use Types Packs/Day Years Used Date Smoking Tobacco: Never Assessed Sex and Gender Information Value Date Recorded Sex Assigned at Not on file Legal Sex Male 4:12 AM PLANT RELIABILITY ENGINEER Gender Identity Not on file Sexual Orientation Not on file documented as of this encounter Plan of Treatment Not on file documented as of this encounter Visit Diagnoses Not on filedocumented in this encounter
--- OUTSIDE RECORDS SUMMARY | 2025-04-02 08:49 | XMS_ITS | Encounter Summary ---
Author Organization [facility] Address [address] [facility] [place] [address] Care Team Providers Care Bag Inspector Name Role Phone Unavailable Primary Care Provider Unavailabl e Encounter Details Date Type Department Care Team (Late st Contact Info) Description 12/14/2023 Lab Requisition [facility] - DermPath Lab [address] [facility] [place] [address] Germania Ryan MD [address] [facility] [address] [place] [address] Social History Tobacco Use Types Packs/Day Years [...] Diagnosis Comments DERMATOPATHOLOGY Routine 12/14/2023 8:37 AM CANNING MACHINE OPERATOR documented in this encounter Results * DERMATOPATHOLOGY (12/14/2023 8:37 AM CANNING MACHINE OPERATOR) Case Report Dermatopathology Report Case: [id number] Authorizing Provider: Germania Ryan MD Collected: 12/14/2023 08:37 AM Ordering Location: [facility] DermPath Lab Received: 12/17/2023 11:46 AM Pathologist: Radha Simms MD Specimens: A) - Skin, right lat cheek B) - Skin, left lower burks 4 3:50 PM [facility] DERMATOPATHOLOGY LABORATORY Final Diagnosis Specimen A. SKIN, right lat cheek: BENIGN VERRUCOUS KERATOSIS (L82.1) Specimen B. SKIN, left lower burks: SEBORRHEIC KERATOSIS, IRRITATED (L82.0) 4 3:50 PM [facility] DERMATOPATHOLOGY LABORATORY at 1550 CANNING MACHINE OPERATOR Clinical History A-B: NMSC Irritated 4 3:50 PM [facility] DERMATOPATHOLOGY LABORATORY Gross Description Specimen [...] 8x5x1 mm. Jar 0. 4 3:50 PM [facility] DERMATOPATHOLOGY LABORATORY Microscopic Description Specimen A. SKIN, right lat cheek: Sections show hyperkeratosis, papillomatosis, hypergranulosis, and acanthosis. These histological findings can be seen in a verruca vulgaris or a seborrheic keratosis. Specimen B. SKIN, left lower burks: There is acanthosis consisting of fairly uniform squamous cells with eosinophilic cytoplasm and squamous eddies. 4 3:50 PM [facility] DERMATOPATHOLOGY LABORATORY Disclaimer An external and internal positive and negative controls are appropriate for the histochemical, immunohistochemical and immunofluorescence stain(s) in this case (if any), except where stated explicitly. The performance characteristics of the stain(s) cited in this report were developed and its performance characteristic determined by the Dermatopathology Laboratory at [facility], directed by Dr. Brendan Simms. These tests need not be, and therefore are not, approved by the [place] Food and Drug Administration. The tests are used for clinical purposes. Billing Codes Specimen Charges Stain Charges 74959 13401 1 1 4 3:50 PM [facility] DERMATOPATHOLOGY LABORATORY Embedded Images 4 3:50 PM [facility] DERMATOPATHOLOGY LABORATORY Pathology/Cytology TISSUE SPECIMEN FROM SKIN / Unknown 12/14/2023 8:37 AM CANNING MACHINE OPERATOR 12/17/2023 11:46 AM CANNING MACHINE OPERATOR Miscellaneous samples (specimen) TISSUE SPECIMEN FROM SKIN / Unknown 12/14/2023 8:37 AM CANNING MACHINE OPERATOR 12/17/2023 11:46 AM CANNING MACHINE OPERATOR Germania Ryan MD LAB - PATHOLOGY/CYTOLOGY OR DERABLES Final Result DERMATOPATHOLOGY LABORATORY [facility] - Department of Dermatology [facility] Medicine [address] [place] [address], [address] [phone] documented in this encounter Visit Diagnoses Not on filedocumented in this encounter
--- OUTSIDE RECORDS SUMMARY | 2025-04-02 08:49 | XMS_ITS | Encounter Summary ---
Author Organization [facility] Address [address] [place] [address] Phone Care Team Providers Care Advertising Supervisor Name Role Phone Darnell Palacios DO Primary Care Provider +1- [phone] Encounter Details Date Type Department Care Team (Late st Contact Info) Description 03/14/2018 Orders Only [facility] ProviderDonnie MD [address] [place] [address] Social History Tobacco Use Types Packs/Day Years Used Date Smoking Tobacco: Former Sex and Gender Information Value Date Recorded Sex Assigned at Not on file Legal Sex Male 12:57 AM DATA TECHNICAL LEAD Gender Identity Not on file Sexual Orientation [...] COVID: Suspected 11/27/2022 11/27/2022 11/27/2022 3:36 PM DATA TECHNICAL LEAD COVID: Suspected 12/03/2023 12/03/2023 12/03/2023 4:11 PM DATA TECHNICAL LEAD COVID: Suspected 01/12/2024 01/12/2024 01/12/2024 6:16 PM CDT documented as of this encounter Care Teams Advertising Supervisor Relationship Specialty Start Date End Date Darnell Palacios DO PCP - General 07/11/17 documented as of this encounter
--- OUTSIDE RECORDS SUMMARY | 2025-04-02 08:49 | XMS_ITS ---
Author Organization [facility] Address [address] [place] [address] Care Team Providers Care Movie Editor Name Role Phone Darnell Palacios DO Primary Care Provider +1- [phone] Active Problems Problem Noted Date Diagnosed Date Spondylosis of lumbar region without myelopathy or radiculopathy 05/26/2024 Sleep apnea 12/31/2020 Overview (12/31/2020): Compliant with CPAP Assessment & Plan (12/31/2020 9:37 AM MEDICAL GENETICIST): The patient does have history of sleep apnea and he is compliant with the CPAP Encounter for colonoscopy due to history of colo adali polyp 08/26/2019 Overview (08/26/2019): Added automatically from request for surgery [id number] Encounter for colonoscopy du e to history of adenomatous colonic polyps 05/28/2018 Overview (05/28/2018): Added automatically from request for surgery [id number] Rectal mass 06/06/2017 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 Euvolemic upon examination. Continue HCTZ. Continue adequate blood pressure control. BMP today. Assessment & Plan (12/30/2021 8:35 AM MEDICAL GENETICIST): He has stable class 1 symptoms. Encouraged him to let us know if he notices a significant change in his activity tolerance. Blood pressure well controlled. Assessment & Plan (12/31/2020 9:37 AM MEDICAL GENETICIST): He is currently euvolemic on examination. He does not have any symptoms of heart failure. His blood pressure at home is well controlled. We asked him to continue appropriate blood pressure monitoring and remain compliant with his CPAP machine Assessment & Plan (01/02/2020 11:31 AM MEDICAL GENETICIST): He appears euvolemic on examination. He does [...] ischemia Assessment & Plan (12/31/2020 9:39 AM MEDICAL GENETICIST): The patient is fairly active and denies [...] control. Assessment & Plan (01/02/2020 11:30 AM MEDICAL GENETICIST): His dyspnea has not been problematic since [...] today. Assessment & Plan (12/30/2021 8:35 AM MEDICAL GENETICIST): His blood pressure is controlled. Continue current regimen without change. Encouraged continued exercise as he is currently doing. Assessment & Plan (12/31/2020 9:39 AM MEDICAL GENETICIST): His blood pressure is currently well controlled at home. His blood pressure is mildly elevated today. We asked him to continue to monitor at this time. In the interim, will continue amlodipine, lisinopril, hydrochlorothiazide. We will obtain a CMP to ensure that his renal function electrolytes are well controlled. Assessment & Plan (01/02/2020 11:30 AM MEDICAL GENETICIST): Reports good blood pressure control at home. [...] today. Assessment & Plan (12/30/2021 8:35 AM MEDICAL GENETICIST): Lipids checked 1 year ago at goal. Recheck today. Assessment & Plan (12/31/2020 9:38 AM MEDICAL GENETICIST): Will continue pravastatin 40 mg daily at this time. We will obtain a lipid panel to ensure that his lipids are well controlled. Assessment & Plan (01/02/2020 11:34 AM MEDICAL GENETICIST): He has had adequate control of his [...]
--- OUTSIDE RECORDS SUMMARY | 2025-04-02 08:49 | XMS_ITS | Encounter Summary ---
Author Organization [facility] Address [address] [facility] [place] [address] Care Team Providers Care Tie Presser Name Role Phone Unavailable Primary Care Provider Unavailabl e Encounter Details Date Type Department Care Team (Late st Contact Info) Description 05/12/2020 Lab Requisition [facility] DermPath Lab [address] [facility] [place] [address] Rubia Amaral MD [address] [facility] [address] [place] [address] Social History Tobacco Use Types Packs/Day Years [...] AM CDT) Case Report Dermatopathology Report Case: [id number] Authorizing Provider: Rubia Amaral MD Collected: 05/12/2020 12:00 AM Ordering Location: [facility] DermPath Lab Received: 05/12/2020 12:54 PM Pathologist: Diya Jaimes MD Specimen: Skin, left arm 0 1:37 PM CDT DERMATOPATHOLOGY LABORATORY Final Diagnosis Specimen A. 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 See prior biopsy [id number] 0 1:37 PM CDT DERMATOPATHOLOGY LABORATORY Gross Description Specimen A: Received is one formalin filled container labeled with the patient's name and designated left arm.The specimen consists of an ellipse measuring 28m70t2 mm and is oriented with the suture/notch [...] determined by the Dermatopathology Laboratory at [facility], directed by Dr. Brendan Simms. These tests need not be, and therefore are not, approved by the [place] Food and Drug Administration. The tests are used for clinical purposes. Billing Codes Specimen Charges Stain Charges 77366 1 0 1:37 PM CDT DERMATOPATHOLOGY LABORATORY Embedded Images 07/16/202 0 1:37 PM CDT DERMATOPATHOLOGY LABORATORY Pathology/Cytolog y TISSUE SPECIMEN FROM SKIN / Unknown 05/12/2020 05/12/2020 12:54 PM CDT us Rubia Amaral MD LAB - PATHOLOGY/CYTOLOGY ORD ERABLES Final Result DERMATOPATHOLOGY LABORATORY [facility] - Department of Dermatology [facility]/[address] [phone] documented in this encounter Visit Diagnoses Not on filedocumented in this encounter
--- OUTSIDE RECORDS SUMMARY | 2025-04-02 08:50 | XMS_ITS | Referral Summary ---
Author Organization [facility] Address [address] [place] [address] Care Team Providers Care Nurse General Duty Name Role Phone Darnell Palacios DO Primary Care Provider [phone] Encounters Date Type Department Care Team Description 03/26/2025 3:24 PM CDT - 03/26/2025 11:59 PM CDT Hospital Encounter [facility] [address] [address], [address] [place] [id number] Salvador Esposito MD Spondylosis without myelopathy or radiculopathy, lumbar region (Primary Dx); Chronic bilateral low back pain without sciatica; Degeneration of intervertebral disc of lumbar region with discogenic back pain Discharge Disposition: Discharge to home or self care 02/13/2025 Telephone [facility] Cardiology [address] [place] [address] for Advanced Medicine 8th [place] [address] [place] [address] Jose Armando Lemus MD from [...] CPAP Assessment & Plan (12/31/2020 9:37 AM FOOT PRESS OPERATOR): The patient does have history of sleep apnea and he is compliant with the CPAP Encounter for colonoscopy due to history of colo adali polyp 08/26/2019 Overview (08/26/2019): Added automatically from request for surgery [id number] Encounter for colonoscopy du jose armando to history of adenomatous colonic polyps 05/28/2018 Overview (05/28/2018): Added automatically from request for surgery [id number] Rectal mass 06/06/2017 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 Euvolemic upon examination. Continue HCTZ. Continue adequate blood pressure control. BMP today. Assessment & Plan (12/30/2021 8:35 AM FOOT PRESS OPERATOR): He has stable class 1 symptoms. Encouraged him to let us know if he notices a significant change in his activity tolerance. Blood pressure well controlled. Assessment & Plan (12/31/2020 9:37 AM FOOT PRESS OPERATOR): He is currently euvolemic on examination. He does not have any symptoms of heart failure. His blood pressure at home is well controlled. We asked him to continue appropriate blood pressure monitoring and remain compliant with his CPAP machine Assessment & Plan (01/02/2020 11:31 AM FOOT PRESS OPERATOR): He appears euvolemic on examination. He [...] ischemia Assessment & Plan (12/31/2020 9:39 AM FOOT PRESS OPERATOR): The patient is fairly active and [...] control. Assessment & Plan (01/02/2020 11:30 AM FOOT PRESS OPERATOR): His dyspnea has not been problematic [...] today. Assessment & Plan (12/30/2021 8:35 AM FOOT PRESS OPERATOR): His blood pressure is controlled. Continue current regimen without change. Encouraged continued exercise as he is currently doing. Assessment & Plan (12/31/2020 9:39 AM FOOT PRESS OPERATOR): His blood pressure is currently well controlled at home. His blood pressure is mildly elevated today. We asked him to continue to monitor at this time. In the interim, will continue amlodipine, lisinopril, hydrochlorothiazide. We will obtain a CMP to ensure that his renal function electrolytes are well controlled. Assessment & Plan (01/02/2020 11:30 AM FOOT PRESS OPERATOR): Reports good blood pressure control at [...] today. Assessment & Plan (12/30/2021 8:35 AM FOOT PRESS OPERATOR): Lipids checked 1 year ago at goal. Recheck today. Assessment & Plan (12/31/2020 9:38 AM FOOT PRESS OPERATOR): Will continue pravastatin 40 mg daily at this time. We will obtain a lipid panel to ensure that his lipids are well controlled. 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 Not on file Not [...] Associated Diagnosis Comments COLONOSCOPY 10/01/2019 1:[address] CHEST ABDOMEN PELVIS W CONTRAST Schedule Routine, Read Routine (OP Routine) 03/17/2019 8:37 AM CDT Malignant neoplasm of cecum (HCC) from Last 3 Months or Most Recently Relevant to Health Maintenance Results * COLONOSCOPY (10/01/2019 1:29 PM FOOT PRESS OPERATOR) Anatomical Region Laterality Modality Other Narrative Procedure Note Homero Rider MD - 10/01/2019 1:29 PM CST [facility] Patient Name: Giacomo Chakraborty Procedure Date: 10/01/2019 1:29 PM Date of : 1945 Admit Type: Outpatient Age: 74 Gender: Male Attending MD: Homero Rider M.D. Room: [facility] ENDOSCOPY ROOM 9 Note Status: [...] The scope was passed under direct vision.The [id number] endoscope was introduced throughthe anus and advanced to the ileocolonic anastomosis.The colonoscopy was performed without difficulty. The patient tolerated the procedure well. The quality of the bowel preparation was good. The quality of the bowel preparation was evaluated using the BBPS([place] Bowel Preparation Scale) with scores of: Right [...] my nurses in the GI office at [phone] ([phone]) for your final pathology results in 7 days. - Return to primary care physician as previously scheduled. Attending Participation: I personally performed the entire procedure. Electronically signed by Homero Rider MD Homero Rider M.D. 10/01/2019 2:00:50 PM . Number of Addenda: 0 Note Initiated On: 10/01/2019 1:29 PM Recognized by the [place] [employer] for promoting quality [...] by: Juan Albrecht M.D. Marc Estrella MD [facility] CT PROCEDURES Final Resul t from Last 3 Months or Most Recently Relevant to Health Maintenance Insurance MEDICARE [facility] MEDICARE SUPPLEMENT MEDICARE [facility] MEDICARE [facility] MEDICARE ADVANTAGE Advance Directives For more information, please contact: [phone] * Full Code (Latest Code Status on File) Date Activated Date Inactivated Comments 10/01/2019 1:30 PM 10/01/2019 6:52 PM * Full Code Date Activated Date Inactivated Comments 07/19/2018 6:34 AM 07/19/2018 10:04 AM Care Teams Nurse General Duty Relationship Specialty Start Date End Date Darnell Palacios DO PCP - General 07/11/17
--- NOTE | 2025-04-24 13:02 | P.SLEEP_ITS ---
Sleep Study Date of Study: 04/02/25 Ordering Provider: Angélica Felder DO Interpreting Physician: Joanie Pace MD Sleep Study Type: CPAP Titration Height: 1.91 m Weight: 109.769 kg Body Mass Index: 30.2 Neck Circumference (inches): 19.5 [place]: 7 Reason for Sleep Study Known obstructive sleep apnea on auto PAP compliant with therapy machine is older than 5 years needs an updated sleep study for equipment Sleep History Jono Fischer is an 80-year-old man with a long history of obstructive sleep apnea. He was previously tested [facility]. He currently is using auto PAP 10-12 cm, he is compliant with therapy and benefitting from it. His device is more than 5 years old, was told that he needs an updated sleep study to qualify for new equipment. He does not awaken from sleep feeling short of breath while using CPAP. He does not awaken at night with heartburn, belching or coughing on treatment. He does frequently snore and is loud enough that others complain about it. He rarely has difficulty sleeping when he has a cold. He does not wake up gasping for breath at night. He frequently has breathing problems at night observed by others. He does not sweat excessively at night or notice his heart pounding or beating irregularly at night. He rarely falls asleep during the day, never falls asleep involuntarily or while driving. He does not have lost tone with strong emotion. He rarely has daytime difficulties due to excessive sleepiness. He does not feel paralyzed on waking or falling asleep. He rarely has vivid dreamlike scenes upon awakening or falling asleep. He does not feel afraid to go to sleep. He rarely has nightmares. He rarely dream members his dreams. He frequently has racing thoughts. He rarely feels sad or depressed. He frequently has anxiety. He occasional has muscular tension. He does not notice parts of his body jerking, he does not kick at night nor does he have crawling or aching feelings he rarely has any kind of leg pain at night. He does not have morning jaw pain. He does not grind his teeth during sleep. He rarely is bothered by pain during the day. He is not awakened by pain during the night. He occasionally wakes up feeling stiff in the morning with sore achy muscles and pain in the neck and spine. He has fatigue and memory problems. Normal bedtime is 9:30 p.m. falling asleep within a 1/2 hour, typically waking 3 times at night to go to the bathroom and put drops in his eyes. He is able to return to sleep within 30 minutes. His normal wake time is 5:00 a.m.. He maintains the same schedule on weekends. He estimates getting between 4 and 5 hours of sleep most nights. He takes naps in the day. A short nap lasting 10- 15 minutes may be refreshing. Most of the time he feels adequate on waking. He feels better in the morning compared to other times of day. Habits: Tobacco: never smoker Caffeine: 2 servings per day Alcohol: none Recreational substances: none PMFSH Past Medical History Medical History Obstructive sleep apnea Seasonal allergies Hydrocele 1955 Alcoholism Colon cancer 07 HLD (hyperlipidemia) HTN (hypertension) Surgical History Surgical History H/O resection of liver 09 Family History Family History Sibling Patient's sister is in good health Carcinoma of colon Father Acute myocardial infarction Mother Leukemia Other Family history of cardiovascular disease Social History Social History Social History: Caffeine-daily Smoking status: Former smoker Tobacco type: cigars Smoking end date: 10/29/94 Alcohol intake: never Substance use: never Substance use type: does not use Living arrangements: with family Spiritual care concerns: No Medications Home Medications ?Medication ?Instructions ?Recorded ?Confirmed ?Type loratadine 10 mg tablet (Claritin) 10 mg PO DAILY 01/05/20 02/04/25 History omeprazole magnesium 20 mg 20 mg PO DAILY 01/05/20 02/04/25 History tablet,delayed release (Prilosec OTC) pravastatin 40 mg tablet 40 mg PO DAILY 01/05/20 02/04/25 History triamcinolone acetonide 0.1 % 1 applic topical BID 04/14/21 02/04/25 History topical cream hydrochlorothiazide 12.5 mg capsule 12.5 mg PO DAILY 08/13/24 02/04/25 History lisinopril 5 mg tablet 5 mg PO DAILY 08/13/24 02/04/25 History sildenafil 100 mg tablet 100 mg PO DAILY PRN sexual activity 08/13/24 02/04/25 History tamsulosin 0.4 mg capsule 0.4 mg PO DAILY #90 caps 11/10/24 02/04/25 Rx eszopiclone 1 mg tablet (Lunesta) 1 mg PO QHS #1 tablet 02/04/25 02/04/25 Rx Sleep Procedure A full CPAP polysomnogram using the [employer] SleepAxeda multi-channel system recorded the standard physiologic parameters including EEG, EOG, submentalis EMG, anterior tibialis EMG, EKG, body position, nasal and oral airflow using nasal pressure sensor and thermistor. Respiratory parameters of chest and abdominal movements were recorded with Respiratory Inductance Plethysmography belts. Oxygen saturation was recorded by pulse oximetry. Video monitoring was also performed. Sleep stages, periodic limb movements, and EEG arousals were scored in 30 second epochs according to the criteria of the AASM Scoring Manual. The Apnea-Hypopnea Index was calculated using CMS guidelines for definition of hypopnea while scoring respiratory events. The patient self-administered Lunesta 1 mg at the beginning of the study. Two bathroom breaks were taken. Currently at home, he is using a large fullface mask. The patient was started on CPAP using a medium ResMed AirFit F40 fullface mask and heated humidity, initial pressure was CPAP 6 cm, titrated to CPAP 8, CPAP 10, CPAP 12, final pressure was CPAP 14 cm. At CPAP 8 cm, his residual apnea-hypopnea index was 2.6, he had supine REM and sleep was consolidated. On higher settings sleep became more fragmented. The best pressure on this study is CPAP 8. At this setting, the patient spent 269.5 minutes in bed, 35.5 minutes awake, 190.5 minutes in non-REM and 43.5 minutes in REM. The sleep efficiency was 86.8%. The residual apnea-hypopnea index was 2.6 and the lowest saturation was 88%. Another pressure to consider is CPAP 10 because he did have significant REM but the residual AHI was 14.2 and the sleep efficiency was 68%. At CPAP 12 the residual AHI was 5.3 without REM and CPAP 14 was not good. He was awake most of that pressure. Sleep Architecture The total recording time was 501.8 minutes. The total sleep time was 354.5 minutes. Sleep latency was 4.2 minutes. REM latency was 35.5 minutes. Sleep efficiency was 70.6%. The patient had 47 awakenings for an awakening index of 8.0. Wake after Sleep Onset time was 143.0 minutes. The patient spent 54.0 minutes, 15.2% of total sleep time in Stage N1. The patient spent 236.5 minutes, 66.7% in Stage N2. The patient spent 0.5 minutes, 0.1% in Stage N3. The patient spent 63.5 minutes, 17.9% in Stage REM. Respiratory Analysis The patient had 23 hypopneas, no obstructive apneas, no mixed apneas, and 2 central apneas for an overall Apnea Hypopnea Index of 4.2 events per hour. The REM Apnea Hypopnea Index was 4.7. The NREM Apnea Hypopnea Index was 4.1. The patient had a Central Apnea Hypopnea Index of 0.3. There were no Respiratory Effort Related Arousals. The Respiratory Disturbance Index is 6.9 events per hour. There was no evidence of Leonel-Kent Respirations. Arousals There were 71 total arousals for an arousal index of 12.0. There were 56 spontaneous arousals for an index of 9.5. There were 10 arousals due to respiratory events for an index of 1.7. There were no arousals due to periodic limb movements. There were 5 arousals due to isolated limb movements for an index of 0.8. Periodic Limb Movements The patient had 22 isolated limb movements with an index of 3.7. The patient had 35 periodic limb movements with index of 5.9. Patient had a total of 57 limb movements with a total limb movement index of 9.6. Oximetry Data The patient had an average oxygen saturation of 93.5% in sleep with a minimum oxygen saturation of 88% and a maximum oxygen saturation of 98.0%. The patient had 22 oxygen desaturations that were 4% or greater resulting in an Oxygen Desaturation Index of 3.7. The patient spent 0.9 minutes, 0.2% of total sleep time with an oxygen saturation below 88%. Snoring Profile During titration, snoring was not noted. Cardiac Profile The EKG showed normal sinus rhythm with sporadic PVCs.. The patient had an average pulse rate of 51 bpm with a minimum pulse rate of 42 bpm and a maximum pulse rate of 67 bpm. No arrhythmias noted. EEG Profile EEG was unremarkable, no evidence of seizures. Assessment and Plan Assessment and Plan (1) Obstructive sleep apnea: Code(s): G47.33 - Obstructive sleep apnea (adult) (pediatric) Status: Acute Assessment and Plan: This split night CPAP titration on 04/02/2025 shows a successful titration using a medium ResMed AirFit F40 fullface mask and CPAP 8 cm water pressure. At CPAP 8 cm, his residual apnea-hypopnea index was 2.6, he had supine REM and sleep was consolidated. On higher settings, sleep became more fragmented. The best pressure on this study is CPAP 8. At this setting, the patient spent 269.5 minutes in bed, 35.5 minutes awake, 190.5 minutes in non-REM and 43.5 minutes in REM. The sleep efficiency was 86.8%. The residual apnea-hypopnea index was 2.6 and the lowest saturation was 88%. The patient should be prescribed this ResMed equipment as well as tubing, filters and reservoir. This should be used with all episodes of sleep. Compliance should be reviewed within 31-90 days of starting therapy for usage greater than 4 hours per night greater than 70% of the nights. The patient should be asked about symptoms such as excessive daytime sleepiness, quality of sleep, decreased nocturia, increased mental functioning such as memory, mood, and concentration. It is not know if the patient used his machine leading up to the night of the study. If so, he may have had partially treated sleep apnea and CPAP 8 cm might be slightly below what he requires. He is currently using auto PAP 10-12 cm. He needs new equipment, and APAP is an option. He had only 2 central apneas during this entire study. Data The data obtained during this sleep study is adequate for interpretation. Certification This sleep study has been reviewed by a board certified sleep medicine physician.
[2025-04-24 14:03] VITALS: BMI 30.2
== END 2025-04-03 06:30 | disposition home or self-care (01) ==
PROVIDERS: PCP Nurse Practitioner; Visit Provider Family Medicine
DX: G47.33 Obstructive sleep apnea (adult) (pediatric) (principal)
CPT/HCPCS: 95811

== ENCOUNTER 2025-08-21 08:11 | Outpatient (CLI) | payer MEDICARE, SELFPAY ==
--- OUTSIDE RECORDS SUMMARY | 2025-08-21 08:15 | XMS_ITS | Encounter Summary ---
Author Organization [facility] Address [address] [place] [address] Care Team Providers Care Data Center Technician Name Role Phone Unavailable Primary Care Provider Unavailabl e Encounter Details Date Type Department Care Team (Late st Contact Info) Description 12/14/2023 Lab Requisition [facility] - DermPath Lab [address] [place] [phone] Germania Ryan MD [address] [facility] [address] [place] [address] Social History Tobacco Use Types Packs/Day Years [...] Diagnosis Comments DERMATOPATHOLOGY Routine 12/14/2023 8:37 AM COGNOS BI DEVELOPER documented in this encounter Results * DERMATOPATHOLOGY (12/14/2023 8:37 AM COGNOS BI DEVELOPER) Case Report Dermatopathology Report Case: [id number] Authorizing Provider: Germania Ryan MD Collected: 12/14/2023 08:37 AM Ordering Location: [facility] DermPath Lab Received: 12/17/2023 11:46 AM Pathologist: Radha Simms MD Specimens: A) - Skin, right lat cheek B) - Skin, left lower burks 4 3:50 PM [facility] DERMATOPATHOLOGY [facility]ORAT[facility] Final Diagnosis Specimen A. SKIN, right lat cheek: BENIGN VERRUCOUS KERATOSIS (L82.1) Specimen B. SKIN, left lower burks: SEBORRHEIC KERATOSIS, IRRITATED (L82.0) 4 3:50 PM [facility] DERMATOPATHOLOGY [facility]ORAT[facility] at [address] [employer] DEVELOPER Clinical History A-B: NMSC Irritated 4 3:50 PM [facility] DERMATOPATHOLOGY [facility]OR[facility] Gross Description Specimen A: [...] 8x5x1 mm. Jar 0. 4 3:50 PM [facility] DERMATOPATHOLOGY [facility]OR[facility] Microscopic Description Specimen A. SKIN, right lat cheek: Sections show hyperkeratosis, papillomatosis, hypergranulosis, and acanthosis. These histological findings can be seen in a verruca vulgaris or a seborrheic keratosis. Specimen B. SKIN, left lower burks: There is acanthosis consisting of fairly uniform squamous cells with eosinophilic cytoplasm and squamous eddies. 4 3:50 PM [facility] DERMATOPATHOLOGY [facility]ORATORY Disclaimer An external and internal positive and negative controls are appropriate for the histochemical, immunohistochemical and immunofluorescence stain(s) in this case (if any), except where stated explicitly. The performance characteristics of the stain(s) cited in this report were developed and its performance characteristic determined by the Dermatopathology Laboratory at [facility], directed by Dr. Brendan Simms. These tests need not be, and therefore are not, approved by the [place] Food and Drug Administration. The tests are used for clinical purposes. Billing Codes Specimen Charges Stain Charges 51937 80122 1 1 4 3:50 PM [facility] DERMATOPATHOLOGY [facility]OR[facility] Embedded Images 4 3:50 PM [facility] DERMATOPATHOLOGY [facility]OR[facility] Pathology/Cytology TISSUE SPECIMEN FROM SKIN / Unknown 12/14/2023 8:37 AM [employer] BI DEVELOPER 12/17/2023 11:46 AM [employer] BI DEVELOPER Miscellaneous samples (specimen) TISSUE SPECIMEN FROM SKIN / Unknown 12/14/2023 8:37 AM [employer] BI DEVELOPER 12/17/2023 11:46 AM [employer] BI DEVELOPER Germania Ryan MD LAB - PATHOLOGY/CYTOLOGY OR DERABLES Final Result DERMATOPATHOLOGY LABORATORY [facility] - Department of Dermatology [facility] Medicine [address] [place] [address], [address] [phone] documented in this encounter Visit Diagnoses Not on filedocumented in this encounter
--- OUTSIDE RECORDS SUMMARY | 2025-08-21 08:16 | XMS_ITS | Encounter Summary ---
Author Organization [facility] Address [address] [place] [address] Care Team Providers Care Fitness Sales Associate Name Role Phone Unavailable Primary Care Provider Unavailabl e Encounter Details Date Type Department Care Team (Late st Contact Info) Description 12/17/2023 Lab Requisition [facility] - DermPath Lab [address] [facility] [place] [id number] Loida Roque, [address] [facility] [address] [place] [address] Social History Tobacco Use Types Packs/Day Years [...]
--- OUTSIDE RECORDS SUMMARY | 2025-08-21 08:16 | XMS_ITS | Encounter Summary ---
Author Organization [facility] Address [address] [facility] [place] [address] Care Team Providers Care Procurement Specialist Name Role Phone Unavailable Primary Care Provider Unavailabl e Encounter Details Date Type Department Care Team (Late st Contact Info) Description 04/22/2020 Lab Requisition [facility] DermPath Lab [address] [facility] [place] [address] Rubia Amaral MD [address] [facility] [address] [place] [address] Social History Tobacco Use Types Packs/Day Years [...] AM CDT) Case Report Dermatopathology Report Case: [id number] Authorizing Provider: Rubia Amaral MD Collected: 04/22/2020 12:00 AM Ordering Location: [facility] DermPath Lab Received: 04/22/2020 11:38 AM [...] by the Dermatopathology Laboratory at [facility], directed by Dr. Brendan Simms. These tests need not be, and therefore are not, approved by the [place] Food and Drug Administration. The tests are used for clinical purposes. Billing Codes Specimen Charges Stain Charges 54913 1 0 1:22 PM CDT DERMATOPATHOLOGY LABORATORY Embedded Images 0 1:22 PM CDT DERMATOPATHOLOGY LABORATORY Pathology/Cytolog y TISSUE SPECIMEN FROM SKIN / Unknown 04/22/2020 04/22/2020 11:38 AM CDT us Rubia Amaral MD LAB - PATHOLOGY/CYTOLOGY ORD ERABLES Final Result DERMATOPATHOLOGY LABORATORY [facility] - Department of Dermatology [employer] [place] [address], [facility] [phone] documented in this encounter Visit Diagnoses Not on filedocumented in this encounter
--- OUTSIDE RECORDS SUMMARY | 2025-08-21 08:16 | XMS_ITS | Encounter Summary ---
Author Organization [facility] Address [address] [place] [address] Care Team Providers Care Rotary Drum Tanner Name Role Phone Unavailable Primary Care Provider Unavailabl e Encounter Details Date Type Department Care Team (Late st Contact Info) Description 05/12/2020 Lab Requisition [facility] DermPath Lab [address] [facility], [place] [address] Rubia Amaral MD [address] [facility] [address] [place] [address] Social History Tobacco Use Types Packs/Day Years [...] AM CDT) Case Report Dermatopathology Report Case: [id number] Authorizing Provider: Rubia Amaral MD Collected: 05/12/2020 12:00 AM Ordering Location: [facility] DermPath Lab Received: 05/12/2020 12:54 PM Pathologist: Diya Jaimes MD Specimen: Skin, left arm 0 1:37 PM CDT DERMATOPATHOLOGY LABORATORY Final Diagnosis Specimen A. 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 See prior biopsy [id number] 0 1:37 PM CDT DERMATOPATHOLOGY LABORATORY Gross Description Specimen A: Received is one formalin filled container labeled with the patient's name and designated left arm.The specimen consists of an ellipse measuring [id number] mm and is oriented with the suture/notch [...] determined by the Dermatopathology Laboratory at [facility], directed by Dr. Brendan Simms. These tests need not be, and therefore are not, approved by the [place] Food and Drug Administration. The tests are used for clinical purposes. Billing Codes Specimen Charges Stain Charges 87575 1 0 1:37 PM CDT DERMATOPATHOLOGY LABORATORY Embedded Images 07/16/202 0 1:37 PM CDT DERMATOPATHOLOGY LABORATORY Pathology/Cytolog y TISSUE SPECIMEN FROM SKIN / Unknown 05/12/2020 05/12/2020 12:54 PM CDT us Rubia Amaral MD LAB - PATHOLOGY/CYTOLOGY ORD ERABLES Final Result DERMATOPATHOLOGY LABORATORY [facility] - Department of Dermatology Intake Worker Center/[address] [phone] documented in this encounter Visit Diagnoses Not on filedocumented in this encounter
--- OUTSIDE RECORDS SUMMARY | 2025-08-21 08:17 | XMS_ITS | Encounter Summary ---
Author Organization [facility] Address [address] [facility] [place] [address] Care Team Providers Care Director Of Leadership Development Name Role Phone Unavailable Primary Care Provider Unavailabl e Encounter Details Date Type Department Care Team (Late st Contact Info) Description 11/17/2020 Lab Requisition [facility] Care DermPath Lab [address] [facility] [place] [address] Rubia Amaral MD [address] [facility] [address] [place] [address] Social History Tobacco Use Types Packs/Day Years [...] Comments DERMATOPATHOLOGY Routine 11/17/2020 12:0 0 AM CRYOGENICS ENGINEER documented in this encounter Results * DERMATOPATHOLOGY (11/17/2020 12:00 AM CRYOGENICS ENGINEER) Case Report Dermatopathology Report Case: [id number] Authorizing Provider: Rubia Amaral MD Collected: 11/17/2020 12:00 AM Ordering Location: [facility] Care DermPath Lab Received: 11/17/2020 02:01 PM Pathologist: Diya Jaimes MD Specimen: Skin, right ala 12:09 PM [facility] DERMATOPATHOLOGY LABORATORY Final Diagnosis Specimen A. SKIN, right ala: BASAL CELL CARCINOMA, NODULAR TYPE (C44.311) 12:09 PM [facility] DERMATOPATHOLOGY LABORATORY at 1209 CRYOGENICS ENGINEER Clinical History R/O BCC. 12:09 PM [facility] DERMATOPATHOLOGY LABORATORY Gross Description Specimen A: Received is one formalin filled container labeled with the patient's name and designated right ala. The specimen consists of a shave biopsy measuring [id number]. Jar 0. 12:09 PM [facility] DERMATOPATHOLOGY LABORATORY Microscopic Description Specimen A. SKIN, right ala: Within the dermis there are aggregates of basaloid cells with a high nuclear to cytoplasmic ratio and peripheral palisading. 12:09 PM [facility] DERMATOPATHOLOGY LABORATORY Disclaimer An external and internal positive and negative controls are appropriate for the histochemical, immunohistochemical and immunofluorescence stain(s) in this case (if any), except where stated explicitly. The performance characteristics of the stain(s) cited in this report were developed and its performance characteristic determined by the Dermatopathology Laboratory at [facility], directed by Dr. Brendan Simms. These tests need not be, and therefore are not, approved by the [place] Food and Drug Administration. The tests are used for clinical purposes. Billing Codes Specimen Charges Stain Charges 86839 1 12:09 PM [facility] DERMATOPATHOLOGY LABORATORY Embedded Images 12:09 PM [facility] DERMATOPATHOLOGY LABORATORY Pathology/Cytolog y TISSUE SPECIMEN FROM SKIN / Unknown 11/17/2020 11/17/2020 2:01 PM [facility] us Rubia Amaral MD LAB - PATHOLOGY/CYTOLOGY ORD ERABLES Final Result DERMATOPATHOLOGY LABORATORY [facility] - Department of Dermatology [address] [place] [address], [facility] [phone] documented in this encounter Visit Diagnoses Not on filedocumented in this encounter
--- OUTSIDE RECORDS SUMMARY | 2025-08-21 08:17 | XMS_ITS | Clinical Summary ---
Author Organization [facility] Address [address] [facility] [place] [address] Care Team Providers Care Service Parts Driver Name Role Phone Unavailable Primary Care Provider Unavailabl e Source Comments [facility],non-owned Affiliates and Associated Physician Practices is amultiple site organization consisting of ambulatory clinics and hospital sitesin [place], [place], [place] and [place]. This disclosure is being madepursuant to the Care Everywhere program and may not contain all information available regarding this patient. Last updated 18.[facility] Allergies No known active allergies Medications * [...] yrs (1 - 1-dose 75+ series) 2020 DEPRESSION SCREENING 10/29/2024 COVID-19 VACCINE (2023-2 5 season) 2025 INFLUENZA VACCINE (#1) 2025 0, 08/18/2018 HEPATITIS B VACCINE Aged Out No [...] complete this topic Insurance MEDICARE MEDICARE [facility] MANAGED MEDICARE ADV SELF PAY NO INSURANCE Member Subscriber Plan / Payer (Ef fective for All Dates) Name:Aaliyah Jonesivy Conte Member ID:Not on file Relation to Subscriber:Not on file Name:JONO CHAKRABORTY Subscriber ID:Not on file (Home) Address: [address] [place] [address] [place] [address] Payer ID:Not on file Group ID:Not on file Type:Self Pay Address: [place], [place]
[2025-08-21 13:13] LABS: Anion Gap 9 mmol/L (4-12); Blood Urea Nitrogen 27 mg/dL (9-20); Calcium 10.2 mg/dL (8.4-10.2); Carbon Dioxide 28 mmol/L (22-30); Chloride 100 mmol/L (98-107); Estimated Glomerular Filt Rate 56; Glucose 61 mg/dL (65-110); Potassium 4.0 mmol/L (3.4-5.0); Sodium 137 mmol/L (137-145)
== END 2025-08-21 08:12 | disposition home or self-care (01) ==
LOC: ANHGOSHLAB 08:12
PROVIDERS: PCP Nurse Practitioner; Visit Provider Nurse Practitioner
DX: Z13.29 Encounter for screening for other suspected endocrine disorder (principal)
CPT/HCPCS: 36415; 80048